=== PATIENT | male | born 1955 | race Hispanic/Latino ===

== ENCOUNTER 2018-11-11 12:04 | Inpatient (IN) | payer MEDICARE, OTHER ==
[~2018-11-11] VITALS: Ht 177.8 cm; Wt 138.3 kg
--- OUTSIDE RECORDS SUMMARY | 2018-11-11 12:06 | XMS REPORT | Clinical Summary ---
Author Author JANIE [facility] Address Unknown Phone Unavailable Care Team Providers Care Sawmill Production Worker Name Role Phone Nancy Nj Peggy PCP Allergies Comments Active Allergy Reactions Severity Noted Date "cant sleep Codeine Rash Low 11/10/2014 "cant sleep" Hydrocodone-Acetaminophen Itching, Rash Low 10/30/2014 Medications End Date Status Medication Sig Dispensed Refills Start Date Active potassium chloride SA Take 20 mEq 0 (K-DUR,KLOR-CON) 10 MEQ by mouth tablet daily . Active furosemide (LASIX) 40 MG Take 40 mg by 0 tablet mouth daily . Active enalapril (VASOTEC) 20 MG Take 20 mg by 0 tablet mouth 2 (two) times daily . Active levothyroxine (SYNTHROID, Take 100 mcg 0 LEVOTHROID) 100 MCG by mouth tablet Every morning on an empty stomach. Active ATORVASTATIN CALCIUM Take 20 mg by 0 (ATORVASTATIN ORAL) mouth . Active aspirin 81 MG EC tablet Take 81 mg by 0 mouth daily Will stop per MD instructions for surgery. Active amLODIPine (NORVASC) 10 Take 10 mg by 0 MG tablet mouth daily. Active penicillin v potassium Take 250 mg 0 (VEETID) 250 MG tablet by mouth 2 (two) times daily. Active apixaban (ELIQUIS) 5 mg Take 5 mg by 0 Tab tablet mouth 2 (two) times daily Pt to stop per MD instructions for surgery . Active Problems Problem Noted Date Varicose vein of leg 02/23/2017 Encounter for imaging of bilateral greater saphenous veins 01/24/2017 Primary localized osteoarthrosis, lower leg 10/30/2014 Degenerative arthritis of knee 10/30/2014 Social History Date Tobacco Use Types Packs/Day Years Used Current Every Day Smoker 0.5 20 Smokeless Tobacco: Never Used Tobacco Cessation: Ready to Quit: Yes; Counseling Given: Yes Alcohol Use Drinks/Week oz/Week Comments Yes occasional Sex Assigned at Date Recorded Not on file Industry Job Start Date Occupation Not on file Not on file Not on file Travel End Travel History Travel Start No recent travel history available. Last Filed Vital Signs Not on file Plan of Treatment Not on file Implants Device Identifier Shelf Expiration Date Model / Serial / Lot Implanted Type Area Manufactur er 06/08/2016 [id number] / / [id number] Cement,Bone Cement Hv 40gm - Cement/John Right: Knee BIOMET/O.E [id number] ler/Adhesi .C. Implanted: Qty: 2 on 10/30/2014 by Gamaliel Sandoval MD 08/09/2019 [id number] / / [id number] Patella,3-Peg Arcom Thin Series A Joints Right: Knee BIOMET INC 37x8.5mm - [id number] Implanted: Qty: 1 on 10/30/2014 by Gamaliel Pryor MD 03/09/2024 [id number] / / [id number] Tibial Plate,Interlok Fixed Joints Right: Knee BIOMET/O.E Cruciate W/Locking Bar 83mm - .C. [id number] Implanted: Qty: 1 on 10/30/2014 by Gamaliel Pryor MD 08/09/2018 [id number] / / [id number] Vanguard Tibial Bearing Right: Knee BIOMET Implanted: Qty: 1 on 10/30/2014 by Gamaliel Pryor MD 09/09/2024 [id number] / / [id number] Vanguard Knee System Cr Femoral Right: Knee BIOMET -Right Implanted: Qty: 1 on 10/30/2014 by Gamaliel Pryor MD Results Not on fileafter 11/10/2017 Insurance Payer Benefit Subscriber ID Type Phone Address Plan / Group [facility] xxxxxxxxxxxx HMO/POS [phone] [facility] CHOICE EXCHANGE Advance Directives For more information, please contact: [facility] [address] [place] [address] Date Inactivated Comments Code Status Date Activated 02/23/2017 12:22 PM Full Code 02/23/2017 7:52 AM This code status was determined by: Patient 01/24/2017 5:06 PM Full Code 01/24/2017 11:32 AM This code status was determined by: Patient 11/02/2014 12:22 PM Full Code 10/30/2014 9:02 AM This code status was determined by: Patient
--- OUTSIDE RECORDS SUMMARY | 2018-11-11 12:06 | XMS REPORT ---
Author Author [facility] Address Unknown Phone Unavailable Care Team Providers Care Dynamic Balancer Name Role Phone ADELITA STEEL Unavailable Unavailable Problems This patient has no known problems. Allergies, Adverse Reactions, Alerts This patient has no known allergies or adverse reactions. Medications This patient has no known medications. Results Test Description Test Time Test Comments Text Results Atomic Results Result Comments ELECTROLYTES 2017-02-09 15:11:00 SODIUM (BEAKER) (test xyag=281) 141 meq/L 136-145 POTASSIUM (BEAKER) (test qndt=144) 4.2 meq/L 3.5-5.1 CHLORIDE (BEAKER) (test srxf=559) 107 meq/L 98-107 CO2 (BEAKER) (test iewm=973) 23 meq/L 22-29 BUN AND [id number] 15:11:00* Test Item Value Reference Range Comments BLOOD UREA NITROGEN (BEAKER) (test tnft=710) 15 mg/dL 7-21 CREATININE (BEAKER) (test vddu=761) 0.90 mg/dL 0.57-1.25 EGFR (BEAKER) (test hzxf=2271) 86 mL/min/1.73 sq m ESTIMATED GFR IS NOT ACCURATE CREATININE CLEARANCE IN PREDICTING GLOMERULAR FILTRATION RATE. ESTIMATED GFR IS NOT APPLICABLE FOR DIALYSIS PATIENTS. [id number] 15:06:00* Test Item Value Reference Range Comments HEMOGLOBIN (BEAKER) (test djwr=461) 15.4 GM/DL 13.7-17.5 [id number] 16:59:00* Test Item Value Reference Range Comments HEMOGLOBIN (BEAKER) (test frme=313) 16.3 GM/DL 13.0-16.8 [id number] 16:54:00* Test Item Value Reference Range Comments SODIUM (BEAKER) (test fnkz=039) 141 meq/L 136-145 POTASSIUM (BEAKER) (test yhyd=801) 4.5 meq/L 3.5-5.1 Specimen slightly hemolyzed CHLORIDE (BEAKER) (test jhqs=676) 107 meq/L 98-107 CO2 (BEAKER) (test ildp=796) 27 meq/L 22-29 [id number] 16:54:00* Test Item Value Reference Range Comments GLUCOSE RANDOM (BEAKER) (test sxab=807) 102 mg/dL 70-105 Effective 05/27/2014: Reference Range Change-Adult onlyNew: 70-105 Previous: 70-110BUN AND [id number] 16:54:00* Test Item Value Reference Range Comments BLOOD UREA NITROGEN (BEAKER) (test bsow=819) 21 mg/dL 7-21 CREATININE (BEAKER) (test yayr=503) 1.02 mg/dL 0.57-1.25 Specimen slightly hemolyzed EGFR (BEAKER) (test ptjj=7779) 74 mL/min/1.73 sq m ESTIMATED GFR IS NOT ACCURATE CREATININE CLEARANCE IN PREDICTING GLOMERULAR FILTRATION RATE. ESTIMATED GFR IS NOT APPLICABLE FOR DIALYSIS PATIENTS.
--- OUTSIDE RECORDS SUMMARY | 2018-11-11 12:06 | XMS REPORT ---
Author Author Gloria Truong [facility] eClinicalWorks Address Unknown Phone Unavailable Care Team Providers Care Retail Marketing Coordinator Name Role Phone Glorai Truong Unavailable Allergies, Adverse Reactions, Alerts Substance Reaction Event Type Codeine Sulfate Info Not Available Drug Allergy Problems Problem Type Condition Code Onset Dates Condition Status Assessment Venous stasis of both lower extremities I87.8 Active Assessment Venous stasis ulcer of right lower extremity I83.019 Active Assessment Venous stasis dermatitis of both lower extremities I87.2 Active Assessment Morbid (severe) obesity due to excess calories E66.01 Active Assessment Onychomycosis B35.1 Active Problem Venous stasis ulcer of right lower extremity I83.019 Active Problem Morbid (severe) obesity due to excess calories E66.01 Active Problem Venous stasis dermatitis of both lower extremities I87.2 Active Problem Cellulitis of right lower extremity L03.115 Active Problem Onychomycosis B35.1 Active Problem Obesity, unspecified obesity severity, unspecified obesity type E66.9 Active Problem Erysipelas of lower extremity A46 Active Medications Medication Code System Code Instructions Start Date End Date Status Dosage PredniSONE [facility] [place] [address]-89 2.5 MG Orally Once a day Active 1 tablet Bactrim DS [facility] [place] [address]-22 800-160 MG Orally Twice a day Active 1 tablet Eliquis [facility] [place] [address]-62 2.5 MG Orally Active not defined Amlodipine Besylate [facility] [place] [address]-11 10 MG Orally Once a day Active 1 tablet Monopril NDC 0 Active not defined Furosemide [facility] [place] [address]-78 40 MG Orally Once a day Active 1 tablet potassium NDC 0 Oral Active 1 tab Fenofibrate [facility] [place] [address]-76 48 MG Orally Once a day Active 1 tablet Augmentin [facility] [place] [address]-01 875-125 MG Orally every 12 hrs Active 1 tablet Enalapril Maleate [facility] [place] [address]-57 20 MG Orally Once a day Active 1 tablet Aspir-81 [facility] [place] [address]-36 81 MG Orally Once a day Active 1 tablet Vital Signs Date/Time: Apr 25, 2017 BMI 40.89 Index Weight 285 lbs Height 70 in Temperature 98.0 F Cardiac Monitoring Heart Rate 61 /min Blood Pressure Diastolic 56 mm Hg Blood Pressure Systolic 111 mm Hg Results No Known Results Summary Purpose eClinicalWorks Submission
--- OUTSIDE RECORDS SUMMARY | 2018-11-11 12:06 | XMS REPORT | Continuity of Care Document ---
Author Author [facility] Address Unknown Phone Unavailable Problems Problem Status Onset Date Classification Date Reported Comments Source Venous stasis of both lower extremities Active Diagnosis 04/26/2017 [id number] Venous stasis ulcer of right lower extremity Active Diagnosis 04/26/2017 2.16840.1.728398.4.391.11.83036 Venous stasis dermatitis of both lower extremities Active Diagnosis 04/26/2017 2.16840.1.768164.4.391.11.88663 Morbid obesity due to excess calories Active Diagnosis 04/26/2017 2.16840.1.890381.4.391.11.52607 Onychomycosis Active Diagnosis 04/26/2017 2.16840.1.178051.4.391.11.49861 Cellulitis of right lower extremity Active Problem 04/26/2017 2.16840.1.840586.4.391.11.76681 Obesity, unspecified obesity severity, unspecified obesity type Active Problem 04/26/2017 2.16840.1.518425.4.391.11.42860 Erysipelas of lower extremity Active Problem 04/26/2017 2.16840.1.154373.4.391.11.79052 Medications Medication Details Route Status Patient Instructions Ordering Provider Order Date Source PredniSONE 1 tablet Orally Active 2.5 MG Orally Once a day [place] 2.840.1.766538.4.391.11.86178 Bactrim DS 1 tablet Orally Active 800-160 MG Orally Twice a day [place] 2.840.1.726695.4.391.11.55727 Eliquis not defined Orally Active 2.5 MG Orally [place] 2.840.1.314729.4.391.11.45244 Amlodipine Besylate 1 tablet Orally Active 10 MG Orally Once a day [place] 2.16.840.1.388993.4.391.. Monopril not defined NA Active [place] 2.16.840.1.481971.4.391.11.99455 Furosemide 1 tablet Orally Active 40 MG Orally Once a day [place] 2.16.840.1.158658.4.391.. potassium 1 tab Oral Active Oral [place] 2.16.840.1.010140.4.391.11.28568 Fenofibrate 1 tablet Orally Active 48 MG Orally Once a day [place] 2.16.840.1.447662.4.391.. Augmentin 1 tablet Orally Active 875-125 MG Orally every 12 hrs [place] 2.16.840.1.116231.4.391. Enalapril Maleate 1 tablet Orally Active 20 MG Orally Once a day [place] 2.16.840.1.021824.4.391.. Aspir-81 1 tablet Orally Active 81 MG Orally Once a day [place] 2.16.840.1.559472.4.391.. Allergies, Adverse Reactions, Alerts Substance Category Reaction Severity Reaction type Status Date Reported Comments Source Codeine Sulfate Adverse Reaction Info Not Available Adverse Reaction Active 04/25/2017 2.16.840.1.249600.4.391.. Immunizations Immunization Date Given Site Status Last Updated Comments Source Results Order Name Results Value Reference Range Date Interpretation Comments Source Vital Signs Vital Sign Value Date Comments Source Weight 285 04/25/2017 2.16.840.1.277046.4.391.68 Height 70 04/25/2017 2.16.840.1.214175.4.391. Temperature Oral (F) 98.0 F 04/25/2017 2.16.840.1.146205.4.391..11430 Heart Rate 61 04/25/2017 2.16.840.1.683554.4.391.11.56283 Diastolic (mm Hg) 56 04/25/2017 2.16.840.1.312138.4.391.11.57819 Systolic (mm Hg) 111 04/25/2017 2.16.840.1.158833.4.391.11.48799 Encounters Location Location Details Encounter Type Encounter Number Reason For Visit Attending Provider ADM Date DC Date Status Source Procedures Procedure Code Date Perfomer Comments Source
[2018-11-11] MEDS ORDERED: SODIUM CHLORIDE 0.9% 1000ML 1,000 ML IV STA (12:10)
[2018-11-11] MEDS ORDERED: MORPHINE SULFATE INJ 4 MG/ML INJ 1ML IV NR (12:10)
[2018-11-11] MEDS ORDERED: ONDANSETRON HCL INJ 2MG/ML 2ML 2 MG/ML VIAL IV NR (12:10)
--- NOTE | 2018-11-11 12:13 | NUR ---
CALLED AND NOTIFIED TIA OF [facility] SHE WILL CALL TECH
[2018-11-11] MEDS ORDERED: VANCOMYCIN 1GM/NS 250 ML 250 ML IV SCH ×2 (12:15→21:00)
[2018-11-11] MEDS ORDERED: ONDANSETRON HCL INJ 2MG/ML 2ML 2 MG/ML VIAL IV PRN ×2 (12:30→19:00)
[2018-11-11] MEDS: PIPER-TAZ 3.375 GM 50 ML IV SCH ×2 (12:30→17:53)
[2018-11-11 12:39] LABS: BASOPHILS # (AUTO) 0.1 (0.0-0.1); BASOPHILS % 0.5 % (0.0-1.0); EOSINOPHILS # (AUTO) 0.1 (0.0-0.4); EOSINOPHILS % 0.5 % (0.0-6.0); HEMATOCRIT 41.9 % (38.2-49.6); LYMPHOCYTES # (AUTO) 1.1 (1.0-3.2); LYMPHOCYTES % 10.5 % (18.0-39.1); MEAN CORPUSCULAR HEMOGLOBIN 31.8 pg (28-32); MEAN CORPUSCULAR HGB CONC 35.8 g/dL (31-35); MONOCYTES # (AUTO) 1.3 (0.2-0.8); NEUTROPHILS # (AUTO) 8.2 (2.1-6.9); PLATELET COUNT 170 x10e3/uL (140-360); RED BLOOD COUNT 4.71 x10e6/uL (4.3-5.7); RED CELL DISTRIBUTION WIDTH 12.8 % (11.7-14.4)
[2018-11-11] MEDS ORDERED: MORPHINE SULFATE INJ 4 MG/ML INJ 1ML IV PRN (12:45)
[2018-11-11 12:49] LABS: INR 1.16; PROTHROMBIN TIME 15.4 seconds (11.9-14.5)
[2018-11-11 12:50] LABS: PARTIAL THROMBOPLASTIN TIME 35.9 seconds (23.8-35.5)
--- OUTSIDE RECORDS SUMMARY | 2018-11-11 12:57 | XMS REPORT | Clinical Summary ---
Author Author JANIE [facility] Address Unknown Phone Unavailable Care Team Providers Care Chief Pilot Name Role Phone Nancy Nj Peggy PCP [...] Lot Implanted Type Area Manufactur er 06/08/2016 [id number] / / [id number] Cement,Bone Maud Hv 40gm - Cement/John Right: Knee BIOMET/O.E [id number] ler/Adhesi .C. Implanted: Qty: 2 on 10/30/2014 by Gamaliel Sandoval MD 08/09/2019 [id number] / / [id number] Patella,3-Peg Arcom Thin Series A Joints Right: Knee BIOMET INC 37x8.5mm - [id number] Implanted: Qty: 1 on 10/30/2014 by Gamaliel Pryor MD 03/09/2024 [id number] / / [id number] Tibial Plate,Interlok Fixed Joints Right: Knee BIOMET/O.E Cruciate W/Locking Bar 83mm - .C. [id number] Implanted: Qty: 1 on 10/30/2014 by Gamaliel Pryor MD 08/09/2018 [id number] / [id number] Vanguard Tibial Bearing Right: Knee BIOMET Implanted: Qty: 1 on 10/30/2014 by Gamaliel Pryor MD 09/09/2024 [id number] / / [id number] Vanguard Knee System Cr Femoral Right: Knee BIOMET -Right Implanted: Qty: 1 on 10/30/2014 by Gamaliel Pryor MD Results Not on fileafter 11/10/2017 Insurance Payer Benefit Subscriber ID Type Phone Address Plan / Group [facility] xxxxxxxxxxxx HMO/POS [phone] [facility] CHOICE EXCHANGE Advance Directives For more information, please contact: [facility] [address] [place] [address] Date Inactivated Comments Code Status Date Activated 02/23/2017 12:22 PM Full Code 02/23/2017 7:52 AM This code status was determined by: Patient 01/24/2017 5:06 PM Full Code 01/24/2017 11:32 AM This code status was determined by: Patient 11/02/2014 12:22 PM Full Code 10/30/2014 9:02 AM This code status was determined by: Patient
[2018-11-11 12:59] LABS: ALANINE AMINOTRANSFERASE 21 IU/L (0-55); ALBUMIN 3.7 g/dL (3.5-5.0); ALBUMIN/GLOBULIN RATIO 1.1 (0.8-2.0); ALKALINE PHOSPHATASE 69 IU/L (40-150); ANION GAP 11.7 mmol/L (8-16); BLOOD UREA NITROGEN 13 mg/dL (7-26); BUN/CREATININE RATIO 14 (6-25); CALCIUM 9.2 mg/dL (8.4-10.2); CARBON DIOXIDE 24 mmol/L (22-29); CHLORIDE 105 mmol/L (98-107); CREATINE KINASE 241 IU/L (30-200); CREATININE, SERUM 0.96 mg/dL (0.72-1.25); EST GLOMERULAR FILTRATION RATE > 60 ML/MIN (60-); GLUCOSE 99 mg/dL (74-118); POTASSIUM 3.7 mmol/L (3.5-5.1); SODIUM 137 mmol/L (136-145)
[2018-11-11] MEDS: SODIUM CHLORIDE 0.9% 1000ML 1,000 ML IV SCH ×2 (12:59→21:16)
[2018-11-11 13:34] LABS: B-TYPE NATRIURETIC PEPTIDE2 155.6 pg/mL (0-100)
--- NOTE | 2018-11-11 13:40 | NUR ---
PT RECEIVED FROM ER. [facility]. BED AT LOWEST POSITION. CALL LIGHT WITH IN REACH. PT DENIES NEEDS AT THIS TIME.
[2018-11-11 13:49] VITALS: BP 129/70
[2018-11-11 14:39] VITALS: BP 129/70
[2018-11-11] MEDS ORDERED: FUROSEMIDE40 MG PO (16:26)
[2018-11-11] MEDS ORDERED: AMLODIPINE BESY10 MG PO (16:26)
[2018-11-11] MEDS ORDERED: ASPIRIN81 MG PO (16:26)
[2018-11-11] MEDS ORDERED: ATORVASTATIN CA20 MG PO (16:26)
[2018-11-11] MEDS ORDERED: POTASSIUM CHLO20 ME1 (16:26)
[2018-11-11] MEDS ORDERED: ENALAPRIL MALEA20 MG PO (16:26)
[2018-11-11] MEDS ORDERED: ELIQUIS PO (16:30)
[2018-11-11 18:21] VITALS: BP 132/80
[2018-11-11] MEDS ORDERED: HYDRALAZINE HCL 20 MG/ML VIAL IV PRN (19:00)
[2018-11-11] MEDS ORDERED: HYDROCODONE/APAP 5MG-325MG TAB PO PRN (19:00)
[2018-11-11] MEDS ORDERED: ACETAMINOPHEN 325 MG TAB PO PRN (19:00)
--- NOTE | 2018-11-11 19:00 | NUR ---
BEDSIDE SHIFT REPORT GIVEN TO SENIOR COUNSEL COMMERCIAL RN
[2018-11-11 19:59] VITALS: BP 162/72
[2018-11-11 20:00] VITALS: BP 162/72
[2018-11-12] VITALS (8 sets, daily range): BP systolic 120–155; BP diastolic 67–74
[2018-11-12] MEDS: PIPER-TAZ 3.375 GM 50 ML IV SCH ×4 (00:27→18:00)
[2018-11-12] MEDS ORDERED: VANCOMYCIN 1GM/NS 250 ML 250 ML IV SCH (01:00)
[2018-11-12 05:30] LABS: BASOPHILS % 0.6 % (0.0-1.0); EOSINOPHILS # (AUTO) 0.1 (0.0-0.4); EOSINOPHILS % 1.4 % (0.0-6.0); HEMATOCRIT 38.4 % (38.2-49.6); LYMPHOCYTES # (AUTO) 1.7 (1.0-3.2); LYMPHOCYTES % 26.5 % (18.0-39.1); MEAN CORPUSCULAR HEMOGLOBIN 31.3 pg (28-32); MEAN CORPUSCULAR HGB CONC 33.9 g/dL (31-35); MEAN CORPUSCULAR VOLUME 92.3 fL (81-99); NEUTROPHILS # (AUTO) 3.5 (2.1-6.9); NEUTROPHILS % 55.3 % (38.7-80.0); PLATELET COUNT 146 x10e3/uL (140-360); RED BLOOD COUNT 4.16 x10e6/uL (4.3-5.7); RED CELL DISTRIBUTION WIDTH 13.1 % (11.7-14.4)
[2018-11-12 05:55] LABS: ALANINE AMINOTRANSFERASE 17 IU/L (0-55); ALBUMIN 2.9 g/dL (3.5-5.0); ALKALINE PHOSPHATASE 60 IU/L (40-150); ANION GAP 8.4 mmol/L (8-16); BLOOD UREA NITROGEN 10 mg/dL (7-26); BUN/CREATININE RATIO 12 (6-25); CALCIUM 8.6 mg/dL (8.4-10.2); CARBON DIOXIDE 24 mmol/L (22-29); CHLORIDE 108 mmol/L (98-107); CREATININE, SERUM 0.86 mg/dL (0.72-1.25); EST GLOMERULAR FILTRATION RATE > 60 ML/MIN (60-); GLUCOSE 137 mg/dL (74-118); POTASSIUM 3.4 mmol/L (3.5-5.1); SODIUM 137 mmol/L (136-145)
[2018-11-12] MEDS: SODIUM CHLORIDE 0.9% 1000ML 1,000 ML IV SCH ×2 (08:24→16:45)
[2018-11-12] MEDS: FAMOTIDINE 20 MG TAB PO SCH ×2 (08:47→16:46)
[2018-11-12] MEDS: VANCOMYCIN 1GM/NS 250 ML 250 ML IV SCH (12:36)
[2018-11-12] MEDS ORDERED: ONDANSETRON HCL 4 MG ORAL DISINTEGRATING TAB PO PRN (15:45)
[2018-11-12] MEDS ORDERED: POTASSIUM CHLORIDE 20 MEQ TAB CR PO ONE (18:15)
[2018-11-12] MEDS: HYDRALAZINE HCL 20 MG/ML VIAL IV PRN (18:31)
--- NOTE | 2018-11-12 19:15 | NUR ---
Patient received sitting up in bed. AAO x 3. Family at bedside. No c/o pain. No signs of respiratory distress. IVF infusing at 100cc/hr. Bed locked and in lowest position. Call light within reach. Patient instructed to call for assistance when needed. Call light within reach.
--- NOTE | 2018-11-12 20:02 | NUR ---
Patient off floor for chest X-Ray via W/C.
--- NOTE | 2018-11-12 20:20 | NUR ---
Patient back to floor from Chest X-Ray. Patient in stable condition.
--- NOTE | 2018-11-12 20:34 | Diagnostic Imaging Report ---
EXAMINATION: PA and lateral views of the chest. COMPARISON: None CLINICAL HISTORY: 63-year-old male with wheezing DISCUSSION: Lines/tubes: None. Lungs: Slightly increased interstitial markings bilaterally. Mild pulmonary vascular congestion. Pleura: There is no pleural effusion or pneumothorax. Heart and mediastinum: Enlarged cardiomediastinal silhouette the left cardiac apex is likely obscured due to mediastinal fat. Pulmonary vasculature is normal. Bones and soft tissues: No acute bony abnormalities. Degenerative changes in the thoracic spine IMPRESSION: 1. Slightly increased interstitial markings could represent viral infection. 2. Mildly enlarged cardiomediastinal silhouette with central pulmonary vascular congestion. Signed by: Deloris Singleton MD on 11/12/2018 8:31 PM
[2018-11-12] MEDS: OYST-CAL-D 500MG TABLET PO SCH ×2 (21:00→21:39)
[2018-11-12] MEDS ORDERED: ENALAPRIL MALEATE 10 MG TAB PO SCH (21:00)
[2018-11-12] MEDS: ATORVASTATIN 20 MG TAB PO SCH (21:39)
[2018-11-12] MEDS: APIXABAN 5 MG TABLET PO SCH (21:50)
[2018-11-12] MEDS: ENALAPRIL MALEATE 10 MG TAB PO SCH (22:00)
[2018-11-13] VITALS (9 sets, daily range): BP systolic 148–177; BP diastolic 68–89
--- NOTE | 2018-11-13 00:35 | NUR ---
Blood specimen sent to lab for analysis of Vancomycin trough level.
[2018-11-13] MEDS: VANCOMYCIN 1GM/NS 250 ML 250 ML IV SCH ×2 (01:30→12:07)
[2018-11-13] MEDS: SODIUM CHLORIDE 0.9% 1000ML 1,000 ML IV SCH ×2 (04:24→11:23)
[2018-11-13 05:26] LABS: BASOPHILS # (AUTO) 0.1 (0.0-0.1); BASOPHILS % 0.9 % (0.0-1.0); EOSINOPHILS # (AUTO) 0.1 (0.0-0.4); EOSINOPHILS % 1.7 % (0.0-6.0); HEMATOCRIT 38.7 % (38.2-49.6); LYMPHOCYTES # (AUTO) 1.7 (1.0-3.2); LYMPHOCYTES % 23.9 % (18.0-39.1); MEAN CORPUSCULAR HGB CONC 33.6 g/dL (31-35); MEAN CORPUSCULAR VOLUME 92.1 fL (81-99); MONOCYTES # (AUTO) 0.8 (0.2-0.8); MONOCYTES % 11.4 % (4.4-11.3); NEUTROPHILS # (AUTO) 4.4 (2.1-6.9); NEUTROPHILS % 61.8 % (38.7-80.0); PLATELET COUNT 148 x10e3/uL (140-360)
[2018-11-13 05:56] LABS: ANION GAP 9.9 mmol/L (8-16); BLOOD UREA NITROGEN 12 mg/dL (7-26); BUN/CREATININE RATIO 14 (6-25); CALCIUM 8.9 mg/dL (8.4-10.2); CARBON DIOXIDE 23 mmol/L (22-29); CHLORIDE 109 mmol/L (98-107); CHOL/HDL RATIO 2.8 (3.9-4.7); CHOLESTEROL 108 MD/DL (0-199); CREATININE, SERUM 0.86 mg/dL (0.72-1.25); EST GLOMERULAR FILTRATION RATE > 60 ML/MIN (60-); GLUCOSE 99 mg/dL (74-118); HDL CHOLESTEROL 39 MG/DL (40-60); LDL CHOLESTEROL 56 MG/DL (60-130); PHOSPHORUS 2.9 MG/DL (2.3-4.7); POTASSIUM 3.9 mmol/L (3.5-5.1); SODIUM 138 mmol/L (136-145); TRIGLYCERIDES 67 MG/DL (0-149)
[2018-11-13] MEDS: PIPER-TAZ 3.375 GM 50 ML IV SCH ×4 (06:19→17:01)
[2018-11-13] MEDS: HYDRALAZINE HCL 20 MG/ML VIAL IV PRN (06:29)
[2018-11-13] MEDS ORDERED: FAMOTIDINE 20 MG TAB PO SCH (07:30)
[2018-11-13] MEDS: APIXABAN 5 MG TABLET PO SCH ×2 (08:30→16:59)
[2018-11-13] MEDS: ASPIRIN 81 MG CHEW TAB PO SCH (08:30)
[2018-11-13] MEDS: FAMOTIDINE 20 MG TAB PO SCH ×2 (08:30→16:57)
[2018-11-13] MEDS: ENALAPRIL MALEATE 10 MG TAB PO SCH ×2 (08:31→21:00)
[2018-11-13] MEDS: OYST-CAL-D 500MG TABLET PO SCH ×3 (08:31→21:00)
[2018-11-13] MEDS: ZINC SULFATE 220 MG CAP PO SCH ×2 (08:31→16:59)
[2018-11-13] MEDS: ASCORBIC ACID 500 MG TAB PO SCH ×2 (08:31→16:59)
[2018-11-13] MEDS: MAGNESIUM OXIDE 400 MG TAB PO SCH ×2 (08:31→16:59)
[2018-11-13] MEDS: MULTIVITAMINS/MINERALS TAB PO SCH (08:33)
[2018-11-13] MEDS ORDERED: NON-FORMULARY MEDICATION ([Eliquis] 5 MG) PO SCH (09:00)
[2018-11-13] MEDS ORDERED: AMLODIPINE BESYLATE 10 MG TAB PO SCH (09:00)
[2018-11-13] MEDS ORDERED: ENALAPRIL MALEATE PO SCH (09:00)
[2018-11-13] MEDS ORDERED: APIXABAN 5 MG TABLET PO SCH (09:00)
[2018-11-13] MEDS ORDERED: ENALAPRIL MALEATE 10 MG TAB PO SCH (09:00)
[2018-11-13] MEDS: ATORVASTATIN 20 MG TAB PO SCH (21:00)
[2018-11-14] VITALS: BP 150/76
[2018-11-14] MEDS: VANCOMYCIN 1GM/NS 250 ML 250 ML IV SCH ×2 (00:58→13:00)
[2018-11-14 04:00] VITALS: BP 152/65
[2018-11-14 05:50] LABS: BASOPHILS % 0.5 % (0.0-1.0); EOSINOPHILS # (AUTO) 0.1 (0.0-0.4); EOSINOPHILS % 0.8 % (0.0-6.0); HEMATOCRIT 39.2 % (38.2-49.6); HEMOGLOBIN 13.8 g/dL (14.0-18.0); LYMPHOCYTES # (AUTO) 1.4 (1.0-3.2); LYMPHOCYTES % 17.5 % (18.0-39.1); MEAN CORPUSCULAR HEMOGLOBIN 31.4 pg (28-32); MEAN CORPUSCULAR HGB CONC 35.2 g/dL (31-35); MEAN CORPUSCULAR VOLUME 89.3 fL (81-99); MONOCYTES # (AUTO) 0.6 (0.2-0.8); MONOCYTES % 8.3 % (4.4-11.3); NEUTROPHILS # (AUTO) 5.6 (2.1-6.9); NEUTROPHILS % 72.5 % (38.7-80.0); PLATELET COUNT 181 x10e3/uL (140-360); RED BLOOD COUNT 4.39 x10e6/uL (4.3-5.7); RED CELL DISTRIBUTION WIDTH 12.9 % (11.7-14.4)
[2018-11-14 05:58] LABS: ANION GAP 13.7 mmol/L (8-16); BLOOD UREA NITROGEN 12 mg/dL (7-26); BUN/CREATININE RATIO 13 (6-25); CALCIUM 9.5 mg/dL (8.4-10.2); CARBON DIOXIDE 20 mmol/L (22-29); CHLORIDE 110 mmol/L (98-107); CREATININE, SERUM 0.92 mg/dL (0.72-1.25); EST GLOMERULAR FILTRATION RATE > 60 ML/MIN (60-); GLUCOSE 161 mg/dL (74-118); POTASSIUM 3.7 mmol/L (3.5-5.1); SODIUM 140 mmol/L (136-145)
[2018-11-14] MEDS: PIPER-TAZ 3.375 GM 50 ML IV SCH ×3 (06:38→12:00)
--- NOTE | 2018-11-14 07:10 | NUR ---
Rcd pt at bed pt is alert and oriented pt resting on bed no signs of any distress noted iv patent bed low and locked call light in reach
[2018-11-14] MEDS: FAMOTIDINE 20 MG TAB PO SCH ×2 (07:30→16:17)
[2018-11-14] MEDS: ASCORBIC ACID 500 MG TAB PO SCH ×2 (09:00→16:17)
[2018-11-14] MEDS: MULTIVITAMINS/MINERALS TAB PO SCH (09:00)
[2018-11-14] MEDS: OYST-CAL-D 500MG TABLET PO SCH ×2 (09:00→15:00)
[2018-11-14] MEDS ORDERED: NIFEDIPINE CR 30 MG TAB PO SCH (09:00)
[2018-11-14] MEDS: MAGNESIUM OXIDE 400 MG TAB PO SCH ×2 (09:00→16:17)
[2018-11-14] MEDS: ZINC SULFATE 220 MG CAP PO SCH ×2 (09:00→16:17)
[2018-11-14] MEDS: APIXABAN 5 MG TABLET PO SCH ×2 (09:00→16:17)
[2018-11-14] MEDS: ENALAPRIL MALEATE 10 MG TAB PO SCH (09:00)
[2018-11-14] MEDS: ASPIRIN 81 MG CHEW TAB PO SCH (09:00)
[2018-11-14 09:41] VITALS: BP 153/73
[2018-11-14 10:00] VITALS: BP 153/73
[2018-11-14 12:46] VITALS: BP 144/77
[2018-11-14] MEDS ORDERED: CIPRO500 MG PO (14:28)
[2018-11-14] MEDS ORDERED: ZINC SULFATE220 M1 PO (14:28)
[2018-11-14] MEDS ORDERED: MAGNESIUM OXID400 MG PO (14:28)
[2018-11-14] MEDS ORDERED: ASCORBIC ACID500 MG PO (14:28)
[2018-11-14] MEDS ORDERED: VASOTEC10 MG PO (14:28)
[2018-11-14] MEDS ORDERED: Calcium Carbonate PO (14:28)
[2018-11-14] MEDS ORDERED: Multivitamins/Minerals PO (14:28)
[2018-11-14] MEDS ORDERED: BACTRIM DS TAB1 EACH PO (14:28)
[2018-11-14] MEDS ORDERED: NIFEDIPINE ER30 M1 PO (14:28)
[2018-11-14 15:00] VITALS: BP 154/92
--- NOTE | 2018-11-14 18:05 | NUR ---
PT WENT HOME IN SAFE CONDITION WITH HIS
--- NOTE | 2018-11-15 08:17 | Discharge Summary ---
HISTORY OF PRESENT ILLNESS: Mr. Buckley is a pleasant 63-year-old male, who experienced redness at the right leg on Monday with associated burning and pain. On Monday, he had chills and pain 9 on a 0/10 scale. On Monday, the pain was 8/10, and on Monday and Monday, the pain was 4/10. Approximately a month ago, he was at [facility] for about a week with right lower extremity cellulitis and was given prescription on discharge for doxycycline 100 mg p.o. b.i.d. He took the doxycycline for about 3 days, then went to his PCP with worsening signs and symptoms and was prescribed cephalexin for 10 days. He was not improving, thus went to an Urgent Care Center and was told to come to the emergency department. On admission, a line of demarcation was drawn on the right leg and the patient was placed on vancomycin and Zosyn, IV antibiotics. PAST MEDICAL HISTORY: Significant for right lower extremity cellulitis with 1 year of antibiotics, obstructive sleep apnea, morbid obesity, hypertension, hyperlipidemia, and chronic atrial fibrillation. PAST SURGICAL HISTORY: Both knees have been replaced. FAMILY HISTORY: Father has low back pain and hypertension. Mother had low back pain. SOCIAL HISTORY: Smoked three-quarters of pack per day for 44 years. Denied alcohol or illicit drugs. ALLERGIES: CODEINE. ADMITTING DIAGNOSES: 1. Right lower extremity cellulitis, failed outpatient treatment with oral antibiotics, doxycycline and cephalexin. 2. Right lower extremity pain. 3. Hypertension. 4. Chronic atrial fibrillation. 5. Morbid obesity with BMI of 43. 6. Acute hypokalemia. 7. Acute hyperglycemia. 8. Obstructive sleep apnea. 9. Acute hypoalbuminemia. 10. Active smoker. DISCHARGE DIAGNOSES: 1. Right lower extremity cellulitis, failed outpatient treatment with oral antibiotics, doxycycline and cephalexin. 2. Right lower extremity pain. 3. Hypertension. 4. Chronic atrial fibrillation. 5. Morbid obesity with BMI of 43. 6. Acute hypokalemia. 7. Acute hyperglycemia. 8. Obstructive sleep apnea. 9. Acute hypoalbuminemia. 10. Active smoker. LABORATORY DATA: The patient's white blood cell count on admission is 10.74, which has improved to 7.75 and potassium 3.4, which is now 3.7. Renal labs; BUN 10, creatinine 0.86, GFR greater than 60. Today, BUN 12 and creatinine 0.92. On November 11, 2018, lactic acid 12.4, total protein 5.8, and albumin 2.9. Preliminary venous doppler ultrasound was negative for DVT in the right lower extremity. No growth from blood cultures. PHYSICAL EXAMINATION: Vital signs were stable with systolic blood pressure had been elevated. Today, temperature 97.5, heart 56, blood pressure 153/73, respirations 20, and oxygen saturation 98%. Today, the patient denies any chills. The neck pain that he was experiencing has improved. Had mild pain in the right medial ankle, but no other complaints. There were no consultations during this hospitalization. Vancomycin trough level is 6.5. Pain was controlled during this stay. Eliquis was continued for chronic atrial fibrillation. Hemoglobin A7c was 5.7%. Case was discussed with Dr. See at length. Overall, the patient is improving. We will need to follow up with his PCP, Dr. Yepez in 1 to 2 weeks. DISCHARGE MEDICATIONS: We will discharge on vitamin C 500 mg p.o. b.i.d., Os-Toni with vitamin D 500 mg p.o. b.i.d., calcium carbonate 500 mg p.o. t.i.d., Vasotec 20 mg p.o. q.12 hours, magnesium oxide 400 mg p.o. b.i.d., multivitamin daily, nifedipine 30 mg daily, Cipro 500 mg p.o. q.12 hours, Bactrim 1 tablet p.o. b.i.d., antibiotics will be for 10 days, and zinc sulfate 220 mg p.o. b.i.d. Continue with cardiac diet. Dictated by Keith Drake, GERMAINE MD WERO BowmanP/MODL /[id number]
== END 2018-11-14 18:07 | disposition home or self-care (01) | DRG 603 ==
LOC: ER 12:04 → ERHOLD 12:53 → MED/SURG2 14:13
PROVIDERS: ADMIT Internal Medicine; ATTEND Internal Medicine
DX: L03.115 Cellulitis of right lower limb (principal); Z68.41 Body mass index [BMI] 40.0-44.9, adult; I48.2 Chronic atrial fibrillation; Z79.01 Long term (current) use of anticoagulants; I10 Essential (primary) hypertension; E88.09 Other disorders of plasma-protein metabolism, not elsewhere classified; F17.210 Nicotine dependence, cigarettes, uncomplicated; G47.33 Obstructive sleep apnea (adult) (pediatric); R73.9 Hyperglycemia, unspecified; E87.6 Hypokalemia; E78.5 Hyperlipidemia, unspecified; E66.01 Morbid (severe) obesity due to excess calories
CPT/HCPCS: 36415; 71046; 80048; 80053; 80061; 80202; 82550; 82553; 83036; 83605; 83735; 83880; 84100; 84484; 85025; 85610; 85730; 87040; 93971; 99284; J0360; J2543; J3370; J7030

== ENCOUNTER 2019-10-27 13:37 | Inpatient (IN) | payer MEDICARE ==
[~2019-10-27] VITALS: Ht 177.8 cm; Wt 130.2 kg
[~2019-10-27 13:37] MED LIST: AMLODIPINE BESY10 MG PO; ASCORBIC ACID500 MG PO; ASPIRIN81 MG PO; ATORVASTATIN CA20 MG PO; BACTRIM DS TAB1 EACH PO; CIPRO500 MG PO; Calcium Carbonate PO; ELIQUIS PO; ENALAPRIL MALEA20 MG PO; FUROSEMIDE40 MG PO; MAGNESIUM OXID400 MG PO; Multivitamins/Minerals PO; NIFEDIPINE ER30 M1 PO; POTASSIUM CHLO20 ME1; VASOTEC10 MG PO; ZINC SULFATE220 M1 PO
[2019-10-27] MEDS ORDERED: SODIUM CHLORIDE 0.9% 1000ML 1,000 ML IV STA (13:39)
--- OUTSIDE RECORDS SUMMARY | 2019-10-27 13:41 | XMS REPORT | Encounter Summary ---
Author Organization Unknown Address [address] [place] [id number] Phone [phone] Care Team Providers Care Dance Teacher Name Role Phone Dr. Elsie Phan 3 [phone] Nicolas Tran MD 82 [phone] Reason for Visit sinus symptoms; Left shoulder pain Instructions 1. Shoulder joint pain XR, shoulder, 2 or more view - *Please call the patient and schedule* orthopedic referral - *Please call the patient and make an appointment* Tylenol Arthritis Pain 650 mg tablet,extended release diclofenac 1 % topical gel 2. Congestive heart failure 3. Peripheral vascular disease 4. Morbid obesity learning about healthy weight 5. Influenza vaccination declined 6. Immunization Prevnar 13 (PF) 0.5 mL intramuscular syringe 7. Screening for malignant neoplasm of colon fecal occult blood, stool colon cancer screening, stool 8. Prediabetes 9. Benign essential hypertension 10. Hyperlipidemia colesterol alto: instrucciones de cuidado - [high cholesterol: care instructions] Discussion Note: None recorded. Plan of Care Reminders Provider Appointments None recorded. Lab Fecal Occult Blood, Stool 04/08/2019 [facility] Colon Cancer Screening, Stool 04/08/2019 [facility] (Cologuard Orders Only) Referral Orthopedic Referral 04/08/2019 Rubin White MD Procedures None recorded. Surgeries None recorded. Imaging XR, Shoulder, 2 or More View 04/08/2019 [facility] Medications Name Start Date amlodipine 10 mg tablet Take 1 tablet every day by oral route. Asprin Ec Low Dose 81 mg tablet,delayed release Take 1 tablet every day by oral route. atorvastatin 20 mg tablet Take 1 tablet every day by oral route. diclofenac 1 % topical gel APPLY 2 GRAMS TO THE AFFECTED AREA(S) BY TOPICAL ROUTE 4 TIMES PER DAY Eliquis 5 mg tablet Take 1 tablet twice a day by oral route. enalapril maleate 20 mg tablet Take 1 tablet twice a day by oral route. furosemide 40 mg tablet Take 1 tablet every day by oral route. gabapentin 100 mg capsule Take 1 capsule every day by oral route for 30 days. Macrobid 100 mg capsule Take 1 capsule every 12 hours by oral route for 7 days. With Food. potassium chloride 20mg once a day tramadol 50 mg tablet Take 1 tablet every 8 hours by oral route as needed for 30 days. Tylenol Arthritis Pain 650 mg tablet,extended release Take 2 tablets every 8 hours by oral route as needed for 30 days. Medications Administered None recorded. Vitals Height Weight BMI Blood Pressure 5 ft 10 in 283 lbs 40.6 kg/m2 124/74 mm[Hg] Results Lab Results Date Name Specimen Result Interpretation Description Value Range Status Address 05/02/2019 Ankle Brachial Index Result: Moderate Stenosis [facility]: [address] [address], [place] 04/30/2019 HbA1C (Hemoglobin a1C), Blood High A1C W/eag 6.0 % 1.0-5.7 % Final [facility]: [address] [place] [address] Average Blood Glucose 126 mg/dL Final [facility]: [address] [place] [address] 04/30/2019 Hepatitis C Virus RNA, Quant, PCR, Serum or Plasma Normal Hepatitis C Antibody non-reactive non-reactive Final [facility]: [address] [place] [address] Normal Signal to Cut-off 0.06 <1.00 Final [facility]: [address] [place] [address] 04/30/2019 CBC W/ Auto Diff High Wbc 10.42 x10*3/L 4.23-9.07 x10*3/L Final [facility]: [address] [place] [address] Rbc 4.98 10*12/L 4.63-6.08 10*12/L Final [facility]: [address] Hemoglobin 15.80 g/dL 13.70-17.50 g/dL Final [facility]: [address] Hematocrit 46.1 % 40.1-51.0 % Final [facility]: [address] [place] [address] Mcv 92.6 fL 80.0-100.0 fL Final [facility]: [address] [place] [address] Mch 31.7 pg 25.7-32.2 pg Final [facility]: [address] [place] Mchc 34.3 g/dL 32.3-36.5 g/dL Final [facility]: [address] [place] RDW-SD 43.4 fL 35.1-43.9 fL Final [facility]: [address] [place] Platelet Count 204.0 k/uL 163.0-337.0 k/uL Final [facility]: [address] [facility] Mpv 11.7 fL 7.5-11.5 fL Final [facility]: [address] [place] High Neut% 68.6 % 34.0-67.9 % Final [facility]: [address] [place] Low Lymph% 17.8 % 21.8-53.1 % Final [facility]: [address] [place] High Mon% 12.8 % 5.3-12.2 % Final [facility]: [address] [place] Low Eos% 0.5 % 0.8-7.0 % Final [facility]: [address] [place] Baso% 0.3 % 0.2-1.2 % Final [facility]: [address] [facility] Neut# 7.2 x10*3/L 1.8-5.4 x10*3/L Final [facility]: [address] [place] Lymph# 1.9 x10*3/L 1.3-3.6 x10*3/L Final [facility]: [address] [place] High Mon# 1.3 x10*3/L 0.3-0.8 x10*3/L Final [facility]: [address] [place] Eos# 0.05 x10*3/L 0.04-0.54 x10*3/L Final [facility]: [address] [place] Baso# 0.03 x10*3/L 0.01-0.08 x10*3/L Final [facility]: [address] [place] 04/30/2019 CMP, Serum or Plasma Alt 29 U/L 0-55 U/L Final [facility] [address] [facility] Ast 29 U/L 5-34 U/L Final [facility]: [address] [facility] Bun 19.1 mg/dL 8.4-25.0 mg/dL Final [facility]: [address] [place] [address] Alk Phos 85 unit/L 40-150 unit/L Final [facility]: [address] [facility] High Glucose 100 mg/dL 70-99 mg/dL Final [facility]: [address] [facility] Albumin 3.8 g/dL 3.4-5.1 g/dL Final [facility]: [address] [place] [address] Creatinine 1.00 mg/dL 0.72-1.25 mg/dL Final [facility]: [address] eGFR Non- >60 mL/min/1.73m2 Final [facility]: [address] [place] [address] Total Bilirubin 1.0 mg/dL 0.2-1.2 mg/dL Final [facility]: [address] eGFR - >60 mL/min/1.73m2 Final [facility]: [address] [facility] Sodium 139 mEq/L 135-145 mEq/L Final [facility]: [address] Potassium 4.1 mEq/L 3.5-5.1 mEq/L Final [facility]: [address] Chloride 107 mmol/L 98-110 mmol/L Final [facility]: [address] [facility] Total Protein 7.5 g/dL 6.1-8.2 g/dL Final [facility]: [address] [facility] Calcium 9.1 mg/dL 9.0-10.2 mg/dL Final [facility]: [address] [place] [address] Co2 28.1 mmol/L 20.0-32.0 mmol/L Final [facility]: [address] [address], [place] Anion Gap 4 calc Final [facility]: [address] [address], [place] 04/30/2019 Lipid Panel, Serum Low Hdl 36 mg/dL Final [facility]: [address] [address], [place] Triglyceride 80 mg/dL 0-150 mg/dL Final [facility]: [address] VLDL (Calculated) 16 mg/dL Final [facility]: [address] cholesterol/HDL Ratio 3.6 mg/dL Final [facility]: [address] non-HDL Cholesterol (Calculated) 92 mg/dL 0-160 mg/dL Final [facility]: [address] Cholesterol 128 mg/dL 0-200 mg/dL Final [facility]: [address] LDL (Calculated) 76 mg/dL 0-130 mg/dL Final [facility]: [address] [address], [place] 04/30/2019 TSH, Serum or Plasma Tsh 0.860 uIU/mL 0.350-4.940 uIU/mL Final [facility]: [address] 04/30/2019 PSA, Serum or Plasma PSA, Total 1.10 NG/mL <4.00 NG/mL Final [facility]: [address] 04/30/2019 Uric Acid, Serum or Plasma Uric Acid 6.2 mg/dL 3.5-7.2 mg/dL Final [facility]: [address] [address], [place] 04/30/2019 Culture, Urine ABNORMAL Culture, Urine, Routine see note Final [facility]: [address] [address], [place] 04/30/2019 Fecal Occult Blood, Stool ABNORMAL Fecal Globin (Medicare) by Immunochemistry detected Final [facility]: [address] [address], [place] 04/30/2019 Electrocardiogram Rate & Rhythm irregluarly irregular [facility]: [address], [place] Qrs [facility]: [address] [place] Interval [facility]: [address] [place] QRS Duration [facility]: [address] [place] QT Interval [facility] [address] [facility] [address] [place] Visual Acuity R Eye Uncorrected 20/20 [facility]: [address] [place] L Eye Uncorrected 20/20 [facility]: [address] [facility], [place] Urinalysis, Dipstick Color Color yellow [facility]: [address] [place] Color Appearance clear [facility]: [address] [place] Color Glucose negative [facility]: [address] [place] Color Bilirubin negative [facility]: [address] [place] Color Ketones negative [facility]: [address] [place] Color Specific Hewitt 1.020 [facility]: [address] [place] Color Blood moderate [facility]: [address] [place] Color PH 5.5 [facility]: [address] [place] Color Protein negative [facility]: [address] [place] Color Urobilinogen 0.2 [facility]: [address] [place] Color Nitrites negative [facility]: [address] [place] Color Leukocytes small [facility]: [address] [place] Allergies Code Code System Name Reaction Severity Status Onset 2670 RxNorm Codeine Itching Active Problems Name Status Onset Date Source Obstructive Sleep Apnea of Adult Active 04/30/2019 Benign Hypertensive Heart Disease without Congestive Heart Failure Active 04/30/2019 Chronic Atrial Fibrillation Active 04/30/2019 Sick Sinus Syndrome Active 04/30/2019 Impaired Glucose Tolerance Active 05/01/2019 Hyperlipidemia Active 05/07/2019 Benign Essential Hypertension Active 05/07/2019 Congestive Heart Failure Active 05/07/2019 Peripheral Vascular Disease Active 05/07/2019 Procedures Date Name Performed by 04/09/2014 Knee Replacement Information not available 11/07/2013 Knee Replacement Information not available 04/08/2019 XR, Shoulder, 2 or More View [facility] [address] [place] [address] (Work Place) Vaccine List Vaccine Type pneumococcal conjugate PCV 13 04/08/20190.5 mL Social History Tobacco Smoking Status Former Smoker (1/2 PPD) Past Encounters 05/02/2019 Benign Hypertensive Heart Disease without Congestive Heart Failure; Low Back Pain; Impaired Glucose Tolerance; Varicose Veins of Lower Extremity; Stasis Dermatitis and Venous Ulcer of Lower Extremity Due to Chronic Peripheral Venous Hypertension; Peripheral Vascular Disease; Screening for Cardiovascular System Disease Xavier Arias Jr, MD: [address] [facility], [place] [address], Ph. 04/30/2019 Adult Health Examination; Advance Directive Discussed with Patient; Depression Screening; Abdominal Aortic Aneurysm Screening; Screening for Malignant Neoplasm of Prostate; Screening for Malignant Neoplasm of Colon; Alcohol Consumption Screening; Influenza Vaccination Declined; Benign Hypertensive Heart Disease without Congestive Heart Failure; Chronic Atrial Fibrillation; Hyperlipidemia; Exposure to Hepatitis C Virus; Gout; Obstructive Sleep Apnea of Adult; Body Mass Index 40+ - Severely Obese; Morbid Obesity; Blood in Urine; Idiopathic Peripheral Neuropathy; Full Thickness Rotator Cuff Tear; Arthritis of Acromioclavicular Joint; Localized, Primary Osteoarthritis of the Shoulder Region; Ventricular Premature Complex; Electrocardiogram Abnormal; Impaired Fasting Glycaemia Xavier Arias Jr, MD: [address] [facility], [place] [address], Ph. 04/08/2019 Shoulder Joint Pain; Congestive Heart Failure; Peripheral Vascular Disease; Morbid Obesity; Influenza Vaccination Declined; Immunization; Screening for Malignant Neoplasm of Colon; Prediabetes; Benign Essential Hypertension; Hyperlipidemia Elsie Phan MD: [address] [place] [phone], Ph. History of Present Illness Shoulder pain Reported By: Patient HPI: Hand Dominance: right. Location: left, posterior, superficial. Quality: superficial, constant, improving. Severity: moderate, pain level 5/10, worst pain 9/10. Duration: 3 days. Timing: acute, abrupt, nighttime. Context: cannot identify, overuse, atraumatic. Alleviating Factors: rest, OTC medication; topical Icy Hot cream. Aggravating Factors: ROM. Associated Symptoms: no weakness, no numbness, no tingling, no swelling, no redness, no warmth, no radiation down arm, no fever, no chills, ecchymosis. Previous Surgery: none. Prior Imaging: none. Previous Injections: none. Previous PT: none. Work Related: no. Working: regular duty Note:64yo male presents to become established in our office. New to [facility]. Pt only speaks Mohawk - visit translated by DF. Pt previously was seen by Dr Yepez. 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 Previously followed by rolled glass crosscutter at , Dr Ramsey. Next visit with Dr Tran at end of Apr. Blood sugar was elevated per DR Tran.</div><div>Bilateral knee replacements in 2013.</div><div>Hyperlipidemia -on atorvastatin 20mg qhs.< /div><div>PVD/PAD - Had prior vein specialist, Dr Lee about 2016.</div> Review of Systems:ROS as noted in the HPI Review of Systems Comprehensive General Adult ROS Reported By: Patient Constitutional: Constitutional: no fever Eyes: Eyes: no vision change Cardiovascular: Cardiovascular: no chest pain Respiratory: Respiratory: no cough, no wheezing, no shortness of breath Gastrointestinal: Gastrointestinal: no abdominal pain Musculoskeletal: Musculoskeletal: arthralgias/joint pain Neurologic: Neurologic: no loss of consciousness, no headaches Psychiatric: Psych: no depression, no alcohol abuse, no anxiety, no suicidal thoughts Physical Exam General Adult Exam (male), Musculoskeletal and Joint Exam Reported By: Patient Constitutional: General Appearance: healthy-appearing, well-nourished, well-developed. Level of Distress: NAD. Ambulation: ambulating normally Psychiatric: Mental Status: active and alert, normal mood, normal affect Eyes: Lids and Conjunctivae: non-injected. Pupils: PERRLA. EOM: EOMI. Sclerae: non-icteric ENMT: Hearing: no hearing loss. Oropharynx: moist mucous membranes Lungs: Respiratory effort: no dyspnea. Auscultation: breath sounds normal, good air movement, CTA except as noted, no wheezing, no rales/crackles, no rhonchi Cardiovascular: Heart Auscultation: RRR, normal S1, normal S2, no murmurs, no rubs, no gallops. Neck vessels: no carotid bruits Abdomen: Bowel Sounds: normal. Inspection and Palpation: soft Musculoskeletal:: Joints, Bones, and Muscles: no bony abnormalities, limited ROM, tenderness. Extremities: no cyanosis, no edema. Right Hip: no tenderness. Left Hip: no tenderness. Lumbar / Lumbosacral Spine normal lordosis, tenderness on palpation, spasms. Soft Tissue/Bursa: tender point none Neurologic: Gait and Station: normal gait Skin: Inspection and palpation: no rash
--- OUTSIDE RECORDS SUMMARY | 2019-10-27 13:41 | XMS REPORT | Summary of Care ---
Author Author Jaci Ulloa M.A. Unknown Address Unknown Phone Unavailable Care Team Providers Care Shredding Floor Equipment Operator Name Role Phone RISHABH Fox, SHERWIN Unavailable Unavailable LEVY Castano, JANUSZ Unavailable Unavailable JI LUTZ MD Unavailable Unavailable JACQUES COKER NE, TORSTEN SANTIAGO Unavailable Unavailable RISHABH HAY NE, SHERWIN Unavailable Unavailable NATHAN COKER NE, CAT Flores Unavailable Unavailable Unavailable Unavailable Functional Status Name Dates Details Functional status health issues are not documented Status: Name Dates Details Cognitive status health issues are not documented Status: Problems Name Dates Details ASVD (arteriosclerotic vascular disease) (440.9, I70.90) Status: Active Chronic stasis dermatitis (454.1, I87.2) Status: Active Cellulitis (682.9, L03.90) Status: Active COPD, moderate (496, J44.9) Status: Active HTN (hypertension) (401.9, I10) Status: Active Diabetes mellitus (250.00, E11.9) Status: Active High cholesterol (272.0, E78.00) Status: Active Hypokalemia (276.8, E87.6) Status: Active Low blood potassium (276.8, E87.6) Status: Active Left shoulder pain (719.41, M25.512) Status: Active Traumatic complete tear of left rotator cuff, initial encounter (840.4, S46.012A) Status: Active Medications Name Dates Details amLODIPine Besylate 10 MG Oral Tablet TAKE 1 TABLET BY MOUTH EVERY DAYNEEDS OFFICE VISIT Quantity: 30 JANUSZ LOCKETT M.D. * Start : 12-Apr-2017 Active Aspirin 325 MG Oral Tablet Delayed Release TAKE 2 TABLETS EVERY 4 HOURS NEEDED. * Quantity: 360 Refills: 0 LEVY Castano, JANUSZ * Start : 09-Sep-2016 Active Eliquis 5 MG Oral Tablet Take 1 pill daily * Quantity: 30 Refills: 5 LEVY Castano, JANUSZ * Start : 09-Sep-2016 Active Enalapril Maleate 20 MG Oral Tablet Take 1 pill BID daily * Quantity: 60 Refills: 5 LEVY Devries., JANUSZ * Start : 09-Sep-2016 Active Fenofibrate 48 MG Oral Tablet TAKE 1 TABLET DAILY. * Quantity: 30 Refills: 5 LEVY Devries., JANUSZ * Start : 09-Sep-2016 Active Furosemide 40 MG Oral Tablet Take 1 pill daily * Quantity: 30 Refills: 5 LEVY Castano, JANUSZ * Start : 09-Sep-2016 Active Metoprolol Tartrate 25 MG Oral Tablet TAKE 1 TABLET DAILY. * Quantity: 30 Refills: 5 LEVY Devries., JANUSZ * Start : 09-Sep-2016 Active Potassium Chloride Anh ER 20 MEQ Oral Tablet Extended Release Take 1 tablet by mouth daily Supervising MD: Rishabh Ramirez * Quantity: 90 Refills: 1 LEVY Castano, JANUSZ * Start : 09-Sep-2016 Active traMADol HCl - 50 MG Oral Tablet TAKE 1 TO 2 TABLETS EVERY 6 HOURS NEEDED FOR PAIN. * Quantity: 40 Refills: 0 SHERWIN LLANOS * Start : 05-Aug-2019 Active Allergies and Adverse Reactions Name Dates Details Codeine Derivatives (Allergy) Status: Active cyclobenzaprine (Allergy) Status: Active HYDROcodone-Acetaminophen TABS (Allergy) Status: Active OxyCONTIN T12A (Allergy) Status: Active Past Medical History Name Dates Details History of cardiac disorder (V12.50, Z86.79) Status: Resolved History of hypertension (V12.59, Z86.79) Status: Resolved Procedures Procedure Dates Details Post Op Promis 29 Survey Date: 08-Aug-2019 [U] XRAY SHOULDER MIN 2 VWS LEFT [id number] Date: 30-Aug-2019 History of Knee Surgery Left Completed History of Knee Surgery Right Completed Immunization Name Dates Details Immunizations not documented Family History Name Dates Details Family history of hypertension (V17.49, Z82.49) Status: Active Name Dates Details Family history of hypertension (V17.49, Z82.49) Status: Active Name Dates Details Family history of hypertension (V17.49, Z82.49) Status: Active Social History Name Dates Details - Status: Name Dates Details Smokes tobacco daily (finding) Vital Signs Date Test Result Details No Known Vitals to report Results Date Description Value Details [id number] [U] XRAY SHOULDER MIN 2 VWS LEFT [id number] XR SHOULDER MIN 2 VWS LEFT Images acquired, not reported on this accession number. Plan of Care Name Dates Details Planned Observations Planned Goals not documented Planned Encounters Appointment; SHERWIN TREVIZO P.A. On: 02-Sep-2019 9:15 Interventions Provided Labs/Procedures/Imaging* [U] XRAY SHOULDER MIN 2 VWS LEFT [id number]; To Be Done: 02 Sep 2019 Instructions Name Dates Details Instructions not documented Encounters Appointment; CAT EVANS M.D. Encounter Diagnosis: Problem not documented On: 25-Apr-2019 9:00 Appointment; TORSTEN HANNA M.D. Encounter Diagnosis: Problem not documented On: 03-Jun-2019 10:00 Appointment; TORSTEN HANNA M.D. Encounter Diagnosis: Problem not documented On: 30-Jul-2019 8:30 Appointment; SHERWIN TREVIZO P.A. Encounter Diagnosis: Problem not documented On: 05-Aug-2019 9:30 Appointment; SHERWIN TREVIZO P.A. Encounter Diagnosis: Problem not documented On: 02-Sep-2019 9:15
--- OUTSIDE RECORDS SUMMARY | 2019-10-27 13:41 | XMS REPORT ---
Author Author [facility] Address Unknown Phone Unavailable Care Team Providers Care Emergency Medicine Physician Assistant Name Role Phone Sallie CRESPO III PP MARYANN BEDOLLA Unavailable Unavailable ADELITA STEEL Unavailable Unavailable Payers Payer Name Policy Type Policy Number Effective Date Expiration Date [facility] [id number] Problems Condition Name Condition Details Condition Category Status Onset Date Resolution Date Last Treatment Date Treating Clinician Comments Cellulitis Cellulitis Problem Active Allergies, Adverse Reactions, Alerts Allergy Name Allergy Type Status Severity Reaction(s) Onset Date Inactive Date Treating Clinician Comments Codeine Allergy to Substance Active Mild RASH 2018-11-11 00:00:00 Medications Ordered Medication Name Filled Medication Name Start Date Stop Date Current Medication? Ordering Clinician Indication Dosage Frequency Signature (SIG) Comments Components Ascorbic Acid 500 Mg Tablet Ascorbic Acid 500 Mg Tablet 2018-11-14 00:00:00 Yes Laurie Drake [employer] 500 Twice A Day Calcium Carbonate 500 Mg Tab Calcium Carbonate 500 Mg Tab 2018-11-14 00:00:00 Yes Laurie Drake [employer] 500 Three Times A Day Ciprofloxacin Hcl (Cipro) 500 Mg Tablet Ciprofloxacin Hcl (Cipro) 500 Mg Tablet 2018-11-14 00:00:00 Yes Laurie Housee [employer] 500 Every 12 Hours Enalapril Maleate (Vasotec) 10 Mg Tab Enalapril Maleate (Vasotec) 10 Mg Tab 2018-11-14 00:00:00 Yes Laurie Drake [employer] 20 Every 12 Hours Magnesium Oxide 400 Mg Tablet Magnesium Oxide 400 Mg Tablet 2018-11-14 00:00:00 Yes Laurie Brando Vidal [employer] 400 Twice A Day Multivitamins/Minerals Tab Multivitamins/Minerals Tab 2018-11-14 00:00:00 Yes Laurie Brando Drake [employer] 1 Daily Nifedipine (Nifedipine Er) 30 Mg Tab.er.24 Nifedipine (Nifedipine Er) 30 Mg Tab.er.24 2018-11-14 00:00:00 Yes Laurie Brando Drake [employer] 30 Daily Sulfamethoxazole/Trimethoprim (Bactrim Ds Tablet) 1 Each Tablet Sulfamethoxazole/Trimethoprim (Bactrim Ds Tablet) 1 Each Tablet 2018-11-14 00:00:00 Yes Laurie Brando Drake [employer] 1 Twice A Day Zinc Sulfate 220 Mg Capsule Zinc Sulfate 220 Mg Capsule 2018-11-14 00:00:00 Yes Laurie Drake [employer] 220 Twice A Day Amlodipine Besylate 10 Mg Tablet Amlodipine Besylate 10 Mg Tablet Yes 10 Daily Aspirin 81 Mg Tab.chew Aspirin 81 Mg Tab.chew Yes 1 Daily Atorvastatin Calcium 20 Mg Tablet Atorvastatin Calcium 20 Mg Tablet Yes 20 Bedtime Eliquis Eliquis Yes 5 Twice A Day Furosemide 40 Mg Tablet Furosemide 40 Mg Tablet Yes 40 Daily Potassium Chloride 20 Meq Tab.er.prt Potassium Chloride 20 Meq Tab.er.prt Yes 1 Daily Enalapril Maleate 20 Mg Tablet, 2 Tab Oral Enalapril Maleate 20 Mg Tablet, 2 Tab Oral 2018-11-14 00:00:00 No 2 Daily Procedures and Interventions Procedure Date / Time Performed Performing Clinician X-ray of chest, two views 2018-11-12 00:00:00 LAURIE DRAKE Encounters Start Date/Time End Date/Time Encounter Type Admission Type Attending Clinicians Care Facility Care Department Encounter ID 2019-07-30 06:52:00 Inpatient [facility] [id number] 2018-11-11 12:53:00 2018-11-14 18:07:00 Discharged Inpatient 1 MARYANN BEDOLLA [facility] [id number] Results Test Description Test Time Test Comments Text Results Atomic Results Result Comments Vancomycin Level Trough 2018-11-14 13:21:00 Vancomycin Level Trough (test vnwx=4645-0) 7.0 5.0-10.0 Blood Qucirfz6222-04-86 12:33:00* Test Item Value Reference Range Comments Blood Culture (test rtct=07312857) NO GROWTH AFTER 72 HOURS Sodium Hhvqp5656-97-62 06:00:00* Test Item Value Reference Range Comments Sodium Level (test sgxv=8169-9) 140 136-145 Potassium Iqkfo1716-47-88 06:00:00* Test Item Value Reference Range Comments Potassium Level (test prqv=7077-0) 3.7 3.5-5.1 Chloride Phndr3323-30-70 06:00:00* Test Item Value Reference Range Comments Chloride Level (test mkjl=7421-3) 110 98-107 Carbon Dioxide Xtvyz1817-80-49 06:00:00* Test Item Value Reference Range Comments Carbon Dioxide Level (test xdtt=3167-0) 20 22-29 Anion Xwr7311-16-71 06:00:00* Test Item Value Reference Range Comments Anion Gap (test ncuu=18471-2) 13.7 8-16 Blood Urea Tisfmzym9857-34-38 06:00:00* Test Item Value Reference Range Comments Blood Urea Nitrogen (test rilr=2937-7) 12 7-26 Rsycwttpkh6065-79-18 06:00:00* Test Item Value Reference Range Comments Creatinine (test ijno=1231-8) 0.92 0.72-1.25 BUN/Creatinine Pozar5780-24-23 06:00:00* Test Item Value Reference Range Comments BUN/Creatinine Ratio (test zsci=3229-4) 13 6-25 Estimat Glomerular Filtration Ngsu1114-19-28 06:00:00* Test Item Value Reference Range Comments Estimat Glomerular Filtration Rate (test fhjq=828499593) > 60 >60 Ranges were taken from the National Kidney Disease Education Program and the [facility] literature.Reference ranges:60 or greater: Ikbynl60-72 ( for 3 consecutive months): Chronic kidney disease 15 or less: Kidney failure Glucose Bfdla5221-19-14 06:00:00* Test Item Value Reference Range Comments Glucose Level (test egxm=GKO3272) 161 74-118 Calcium Qrcmn7083-21-42 06:00:00* Test Item Value Reference Range Comments Calcium Level (test glfa=59957-2) 9.5 8.4-10.2 White Blood Sjxyl5225-10-89 05:56:00* Test Item Value Reference Range Comments White Blood Count (test besk=9844-2) 7.75 4.8-10.8 Red Blood Dkgkb4806-16-40 05:56:00* Test Item Value Reference Range Comments Red Blood Count (test zddg=510-8) 4.39 4.3-5.7 Ydhzlyahwk6294-97-10 05:56:00* Test Item Value Reference Range Comments Hemoglobin (test vtiv=48809-7) 13.8 14.0-18.0 Ognhfpocjm5252-81-13 05:56:00* Test Item Value Reference Range Comments Hematocrit (test rfue=4550-4) 39.2 38.2-49.6 Mean Corpuscular Ygyuxz2969-26-98 05:56:00* Test Item Value Reference Range Comments Mean Corpuscular Volume (test apqh=902-8) 89.3 81-99 Mean Corpuscular Jmuuljgpeo8240-25-04 05:56:00* Test Item Value Reference Range Comments Mean Corpuscular Hemoglobin (test sbjo=219-6) 31.4 28-32 Mean Corpuscular Hemoglobin Fhwydlh3520-24-79 05:56:00* Test Item Value Reference Range Comments Mean Corpuscular Hemoglobin Concent (test unkj=680-6) 35.2 31-35 Red Cell Distribution Tzdhe8133-73-71 05:56:00* Test Item Value Reference Range Comments Red Cell Distribution Width (test nbri=40972-0) 12.9 11.7-14.4 Platelet Yhmci6972-68-97 05:56:00* Test Item Value Reference Range Comments Platelet Count (test zfki=569-0) 181 140-360 Neutrophils (%) (Auto)2018-11-14 05:56:00* Test Item Value Reference Range Comments Neutrophils (%) (Auto) (test gfyv=27472-9) 72.5 38.7-80.0 Lymphocytes (%) (Auto)2018-11-14 05:56:00* Test Item Value Reference Range Comments Lymphocytes (%) (Auto) (test jgiu=411-7) 17.5 18.0-39.1 Monocytes (%) (Auto)2018-11-14 05:56:00* Test Item Value Reference Range Comments Monocytes (%) (Auto) (test saef=6330-2) 8.3 4.4-11.3 Eosinophils (%) (Auto)2018-11-14 05:56:00* Test Item Value Reference Range Comments Eosinophils (%) (Auto) (test cnea=260-8) 0.8 0.0-6.0 Basophils (%) (Auto)2018-11-14 05:56:00* Test Item Value Reference Range Comments Basophils (%) (Auto) (test trlq=193-9) 0.5 0.0-1.0 IM GRANULOCYTES %2018-11-14 05:56:00* Test Item Value Reference Range Comments IM GRANULOCYTES % (test code=IM GRANULOCYTES %) 0.4 0.0-1.0 Neutrophils # (Auto)2018-11-14 05:56:00* Test Item Value Reference Range Comments Neutrophils # (Auto) (test piyx=500-9) 5.6 2.1-6.9 Lymphocytes # (Auto)2018-11-14 05:56:00* Test Item Value Reference Range Comments Lymphocytes # (Auto) (test idqq=29342-1) 1.4 1.0-3.2 Monocytes # (Auto)2018-11-14 05:56:00* Test Item Value Reference Range Comments Monocytes # (Auto) (test leet=265-7) 0.6 0.2-0.8 Eosinophils # (Auto)2018-11-14 05:56:00* Test Item Value Reference Range Comments Eosinophils # (Auto) (test tsmx=058-9) 0.1 0.0-0.4 Basophils # (Auto)2018-11-14 05:56:00* Test Item Value Reference Range Comments Basophils # (Auto) (test iyik=024-2) 0.0 0.0-0.1 Absolute Immature Granulocyte (mhfb6310-00-62 05:56:00* Test Item Value Reference Range Comments Absolute Immature Granulocyte (auto (test code=Absolute Immature Granulocyte (auto) 0.03 0-0.1 Hemoglobin A1c Slgnoxa3361-16-22 05:58:00* Test Item Value Reference Range Comments Hemoglobin A1c Percent (test code=Hemoglobin A1c Percent) 5.7 4.0-7.0 Phosphorus Jgjfx7075-97-66 05:56:00* Test Item Value Reference Range Comments Phosphorus Level (test rxls=QXA3599) 2.9 2.3-4.7 Magnesium Kufeh2415-49-69 05:56:00* Test Item Value Reference Range Comments Magnesium Level (test hyon=72019-5) 2.0 1.3-2.1 Triglycerides Lspld3697-42-83 05:56:00* Test Item Value Reference Range Comments Triglycerides Level (test qxxm=0353-7) 67 0-149 Cholesterol Ueghh7623-90-61 05:56:00* Test Item Value Reference Range Comments Cholesterol Level (test szxf=2845-6) 108 0-199 Less than 200 mg/dL Low Xyns470 - 239 mg/dL Borderline Armr000 m g/dl and greater High Risk LDL Frnpzrimxzx0344-86-06 05:56:00* Test Item Value Reference Range Comments LDL Cholesterol (test zuga=6015-7) 56 60-130 HDL Scrazmsdlpj8301-45-50 05:56:00* Test Item Value Reference Range Comments HDL Cholesterol (test hfxo=0974-0) 39 40-60 Cholesterol/HDL Yimpp7699-72-00 05:56:00* Test Item Value Reference Range Comments Cholesterol/HDL Ratio (test ljyk=8692-5) 2.8 3.9-4.7 CHEST 2 FLMLY0100-76-94 20:27:00 [place] [address] Patient Name: JEEVAN GREENWOOD MR #: [id number] : 1955 Age/Sex: 63/M Req #: [id number] Adm Physician: MARYANN BEDOLLA MD Ordered by: LAUREI DRAKE REFINERY OPERATOR [employer] Report #: [id number] Location: MED/SURG2 Room/Bed: [facility] Procedure: [id number] DX/ CHEST 2 VIEWS Exam Date: 11/12/18 Exam Time: 2004 REPORT STATUS: Signed EXAMINATI ON: PA and lateral views of the chest. COMPARISON: None CLINICAL HISTO RY: 63-year-old male with wheezing DISCUSSION: Lines/tubes: Non e. Lungs: Slightly increased interstitial markings bilaterally. Mild pulmon taina vascular congestion. Pleura: There is no pleural effusion or pneumot horax. Heart and mediastinum: Enlarged cardiomediastinal silhouette the l eft cardiac apex is likely obscured due to mediastinal fat. Pulmonary vasculat ure is normal. Bones and soft tissues: No acute bony abnormalities. Deg enerative changes in the thoracic spine IMPRESSION: 1. Slightly incre ased interstitial markings could represent viral infection. 2. Mildly enla rged cardiomediastinal silhouette with central pulmonary vascular congestion. Signed by: Deloris Singleton MD on 11/12/2018 8:31 PM Dicta yovana By: DELORIS SINGLETON MD 30 COPY TO: LAURIE DRAKE REFINERY OPERATOR [employer] Total Uqollploo2794-11-34 05:55:00* Test Item Value Reference Range Comments Total Bilirubin (test pcyw=3125-4) 1.1 0.2-1.2 Aspartate Amino Transf (AST/SGOT)2018-11-12 05:55:00* Test Item Value Reference Range Comments Aspartate Amino Transf (AST/SGOT) (test code=Aspartate Amino Transf (AST/SGOT)) 17 5-34 Alanine Aminotransferase (ALT/SGPT)2018-11-12 05:55:00* Test Item Value Reference Range Comments Alanine Aminotransferase (ALT/SGPT) (test cxfw=1237-7) 17 0-55 Total Mxwyqrm6702-57-97 05:55:00* Test Item Value Reference Range Comments Total Protein (test bmfo=7033-6) 5.8 6.5-8.1 Tnodznd7280-88-81 05:55:00* Test Item Value Reference Range Comments Albumin (test zplt=3640-5) 2.9 3.5-5.0 Pwzcwgip0388-58-00 05:55:00* Test Item Value Reference Range Comments Globulin (test waki=81822-1) 2.9 2.3-3.5 Albumin/Globulin Jomlg4451-40-00 05:55:00* Test Item Value Reference Range Comments Albumin/Globulin Ratio (test letr=9746-9) 1.0 0.8-2.0 Alkaline Eonlkjtwekc6567-92-07 05:55:00* Test Item Value Reference Range Comments Alkaline Phosphatase (test zlhc=9257-3) 60 40-150 B-Type Natriuretic Vmjaqbt5087-24-13 13:35:00* Test Item Value Reference Range Comments B-Type Natriuretic Peptide (test lxlr=95441-9) 155.6 0-100 Lactic Acid Mioqr0814-17-60 13:27:00* Test Item Value Reference Range Comments Lactic Acid Level (test code=Lactic Acid Level) 12.4 4.5-19.8 Creatine Eqrvjv4792-36-83 13:27:00* Test Item Value Reference Range Comments Creatine Kinase (test dmpu=8577-7) 241 30-200 Creatine Kinase XG3139-40-27 13:27:00* Test Item Value Reference Range Comments Creatine Kinase MB (test linh=55713-7) 2.60 0-5.0 Troponin H1124-02-15 13:27:00* Test Item Value Reference Range Comments Troponin I (test tvns=WFT9085) 0.055 0-0.300 Activated Partial Thromboplast Lmzo3899-51-25 13:22:00* Test Item Value Reference Range Comments Activated Partial Thromboplast Time (test negi=16461-3) 35.9 23.8-35.5 Prothrombin Sbvw3587-19-43 12:50:00* Test Item Value Reference Range Comments Prothrombin Time (test jjea=8813-7) 15.4 11.9-14.5 Prothromb Time International Fndwt4307-48-11 12:50:00* Test Item Value Reference Range Comments Prothromb Time International Ratio (test mczp=4371-1) 1.16 Oral Anticoagulant Therapy INR Values:1. Low Intensity Therapy 1.5 - 2.02 . Moderate Intensity Therapy 2.0 - 3.03. High Intensity Therapy(1) 2.5 - 3. 54. High Intensity Therapy(2) 3.0 - 4.05. Panic Value INR > 5.0 SMNNTYCCBYGP4393-72-90 15:11:00* Test Item Value Reference Range Comments SODIUM (BEAKER) (test cmmv=598) 141 meq/L 136-145 POTASSIUM (BEAKER) (test emtu=374) 4.2 meq/L 3.5-5.1 CHLORIDE (BEAKER) (test mzny=251) 107 meq/L 98-107 CO2 (BEAKER) (test opep=484) 23 meq/L 22-29 BUN AND XORWTAFTVA0206-79-49 15:11:00* Test Item Value Reference Range Comments BLOOD UREA NITROGEN (BEAKER) (test mrda=475) 15 mg/dL 7-21 CREATININE (BEAKER) (test yhhf=851) 0.90 mg/dL 0.57-1.25 EGFR (BEAKER) (test hmgg=9303) 86 mL/min/1.73 sq m ESTIMATED GFR IS NOT ACCURATE CREATININE CLEARANCE IN PREDICTING GLOMERULAR FILTRATION RATE. ESTIMATED GFR IS NOT APPLICABLE FOR DIALYSIS PATIENTS. QOYHXZCIEN5895-70-27 15:06:00* Test Item Value Reference Range Comments HEMOGLOBIN (BEAKER) (test mqcm=859) 15.4 GM/DL 13.7-17.5 JDRELJVZPZ0487-83-59 16:59:00* Test Item Value Reference Range Comments HEMOGLOBIN (BEAKER) (test sziy=050) 16.3 GM/DL 13.0-16.8 LQDZDZNUOGCM6922-39-58 16:54:00* Test Item Value Reference Range Comments SODIUM (BEAKER) (test mwzg=549) 141 meq/L 136-145 POTASSIUM (BEAKER) (test awkh=415) 4.5 meq/L 3.5-5.1 Specimen slightly hemolyzed CHLORIDE (BEAKER) (test yvba=343) 107 meq/L 98-107 CO2 (BEAKER) (test tpji=450) 27 meq/L 22-29 KKHCUVL8502-73-93 16:54:00* Test Item Value Reference Range Comments GLUCOSE RANDOM (BEAKER) (test idhm=580) 102 mg/dL 70-105 Effective 05/27/2014: Reference Range Change-Adult onlyNew: 70-105 Previous: 70-110BUN AND JTPDPBKDZG2321-99-23 16:54:00* Test Item Value Reference Range Comments BLOOD UREA NITROGEN (BEAKER) (test cwpc=968) 21 mg/dL 7-21 CREATININE (BEAKER) (test xjvx=006) 1.02 mg/dL 0.57-1.25 Specimen slightly hemolyzed EGFR (BEAKER) (test dtmv=3924) 74 mL/min/1.73 sq m ESTIMATED GFR IS NOT ACCURATE CREATININE CLEARANCE IN PREDICTING GLOMERULAR FILTRATION RATE. ESTIMATED GFR IS NOT APPLICABLE FOR DIALYSIS PATIENTS.
--- OUTSIDE RECORDS SUMMARY | 2019-10-27 13:41 | XMS REPORT | Summary of Care ---
Author Author SHERWIN LLANOS Organization Unknown Address Unknown Phone Unavailable Care Team Providers Care Process Manager Name Role Phone SHERWIN LLANOS Unavailable Unavailable JANUSZ LOCKETT M.D. Unavailable Unavailable JI LUTZ MD Unavailable Unavailable JACQUES COKER [place], TORSTEN SANTIAGO Unavailable Unavailable RISHABH HAY [place], SHERWIN Unavailable Unavailable NATHAN COKER [place], CAT Flores Unavailable Unavailable Unavailable Unavailable Functional [...] MOUTH EVERY DAYNEEDS OFFICE VISIT Quantity: 30 LEVY Castano, JANUSZ * Start : 12-Apr-2017 Active Aspirin 325 [...] daily * Quantity: 30 Refills: 5 LEVY Devries., JANUSZ * Start : 09-Sep-2016 Active Metoprolol Tartrate 25 MG Oral Tablet TAKE 1 TABLET DAILY. * Quantity: 30 Refills: 5 LEVY Devries., JANUSZ * Start : 09-Sep-2016 Active Potassium Chloride Anh ER 20 MEQ Oral Tablet Extended Release Take 1 tablet by mouth daily Supervising MD: Rishabh Ramirez * Quantity: 90 Refills: 1 LEVY Devries., JANUSZ * Start : 09-Sep-2016 Active traMADol HCl - 50 MG Oral Tablet TAKE 1 TABLET EVERY 6 HOURS NEEDED FOR PAIN. * Quantity: 30 Refills: 0 SHERWIN LLANOS * Start : [...] Post Op Promis 29 Survey Date: 08-Aug-2019 History of Knee Surgery Left Completed History [...] to report Results Date Description Value Details [id number] [U] XRAY SHOULDER MIN 2 VWS LEFT 43394 XR SHOULDER MIN 2 VWS LEFT Images acquired, not reported on this accession number. [id number] [U] XRAY SHOULDER MIN 2 VWS LEFT 96516 XR SHOULDER MIN 2 VWS LEFT Images acquired, not reported on this accession number. Plan of Care Name Dates Details Planned Observations Planned Goals not documented Planned Encounters Appointment; SHERWIN TREVIZO P.A. On: 30-Sep-2019 9:45 Interventions Provided Medication Changes* traMADol HCl - 50 MG Oral Tablet - Renew Labs/Procedures/Imaging* [U] XRAY SHOULDER MIN 2 VWS LEFT [id number]; Done: 02 Sep 2019 Instructions Name Dates Details Instructions not documented Encounters Appointment; CAT EVANS M.D. Encounter Diagnosis: Problem not documented On: 25-Apr-2019 9:00 Appointment; TORSTEN HANNA M.D. Encounter Diagnosis: Problem not documented On: 03-Jun-2019 10:00 Appointment; TORSTEN HANNA M.D. Encounter Diagnosis: Problem not documented On: 30-Jul-2019 8:30 Appointment; SHERWIN TREVIZO PFidel Encounter Diagnosis: Problem not documented On: 05-Aug-2019 9:30 Appointment; SHERWIN TREVIZO P.A. Encounter Diagnosis: Problem not documented On: 02-Sep-2019 9:15
--- OUTSIDE RECORDS SUMMARY | 2019-10-27 13:41 | XMS REPORT | Summary of Care ---
Author Author Amy Hinojosa Organization Unknown Address Unknown Phone Unavailable Care Team Providers Care Business Intelligence Developer Name Role Phone RISHABH Fox, SHERWIN Unavailable Unavailable Amy Hinojosa Unavailable Unavailable LEVY Castano, JANUSZ Unavailable Unavailable NELDA COKER, JI BISWAS Unavailable Unavailable JACQUES COKER [place], TORSTEN SANTIAGO Unavailable Unavailable RISHABH HAY [place], SHERWIN Unavailable Unavailable NATHAN COKER [place], CAT Flores Unavailable Unavailable Unavailable Unavailable Functional [...] HOURS NEEDED. * Quantity: 360 Refills: 0 JANUSZ LOCKETT M.D. * Start : 09-Sep-2016 Active Eliquis 5 MG Oral Tablet Take 1 pill daily * Quantity: 30 Refills: 5 JANUSZ LOCKETT M.D. * Start : 09-Sep-2016 Active Enalapril Maleate 20 MG Oral Tablet Take 1 pill BID daily * Quantity: 60 Refills: 5 LEVY Calzada.Maria Fernanda., JANUSZ * Start : 09-Sep-2016 Active Fenofibrate 48 MG Oral Tablet TAKE 1 TABLET DAILY. * Quantity: 30 Refills: 5 LEVY Calzada.D., JANUSZ * Start : 09-Sep-2016 Active Furosemide 40 MG Oral Tablet Take 1 pill daily * Quantity: 30 Refills: 5 LEVY Calzada.Maria Fernanda., JANUSZ * Start : 09-Sep-2016 Active Metoprolol Tartrate 25 MG Oral Tablet TAKE 1 TABLET DAILY. * Quantity: 30 Refills: 5 LEVY M.D., JANUSZ * Start : 09-Sep-2016 Active Potassium Chloride Nah ER 20 MEQ Oral Tablet Extended Release Take 1 tablet by mouth daily Supervising MD: Rishabh Ramirez * Quantity: 90 Refills: 1 LEVY Calzada.Maria Fernanda., JANUSZ * Start : 09-Sep-2016 Active traMADol [...] Dates Details - Status: Name Dates Details Current every day smoker Vital Signs Date Test Result Details No Known Vitals to report Results Date Description Value Details [id number] [U] XRAY SHOULDER MIN 2 VWS LEFT [id number] XR SHOULDER MIN 2 VWS LEFT Images acquired, not reported on this accession number. Plan of Care Name Dates Details Planned Observations Planned Goals not documented Planned Encounters Appointment; SHERWIN TREVIZO P.A. On: 02-Sep-2019 9:15 Interventions Provided Labs/Procedures/Imaging* Post Op Promis 29 Survey; To Be Done: 08 Aug 2019 Instructions Name Dates Details Instructions not [...]
--- OUTSIDE RECORDS SUMMARY | 2019-10-27 13:41 | XMS REPORT | Encounter Summary ---
Author Organization Unknown Address [address] [place] [address] Phone [phone] Care Team Providers Care Box Nailer Name Role Phone Dr. Elsie Phan 3 [phone] Nicolas Tran MD 81 [phone] Reason for Visit Bilateral low back pain; hypertension Instructions 1. Benign hypertensive heart disease without congestive heart failure 2. Low back pain 3. Impaired glucose tolerance 4. Varicose veins of lower extremity 5. Stasis dermatitis and venous ulcer of lower extremity due to chronic peripheral venous hypertension 6. Peripheral vascular disease 7. Screening for cardiovascular system disease ankle brachial index Discussion Note: None recorded. Patient educational handouts: No information available. Plan of Care Reminders Provider Appointments None recorded. Lab None recorded. Referral None recorded. Procedures None recorded. Surgeries None recorded. Imaging Ankle Brachial Index 05/02/2019 [facility] Medications Name Start Date amlodipine 10 mg [...] day by oral route for 30 days. potassium chloride 20mg once a day tramadol 50 mg tablet Take 1 tablet every 8 hours by oral route as needed for 30 days. Tylenol Arthritis Pain 650 mg tablet,extended release Take 2 tablets every 8 hours by oral route as needed for 30 days. Medications Administered None recorded. Vitals Height Weight BMI Blood Pressure 5 ft 10 in 282.2 lbs 40.5 kg/m2 136/74 mm[Hg] Results Lab Results Date Name Specimen Result Interpretation Description Value Range Status Address 04/30/2019 HbA1C (Hemoglobin a1C), Blood High A1C W/eag 6.0 % 1.0-5.7 % Final [facility]: [facility] Tory Youssef [address] Average Blood Glucose 126 mg/dL Final [facility]: [facility] Tory Youssef [address] 04/30/2019 Hepatitis C Virus RNA, Quant, PCR, Serum or Plasma Normal Hepatitis C Antibody non-reactive non-reactive Final [facility]: 55 Tory elvira [address] Normal Signal to Cut-off 0.06 <1.00 Final [facility]: [facility] Tory Youssef [address] 04/30/2019 CBC W/ Auto Diff High Wbc 10.42 x10*3/L 4.23-9.07 x10*3/L Final [facility]: [facility] Tory elvira [address] Rbc 4.98 10*12/L 4.63-6.08 10*12/L Final [facility]: 55 Tory elvira [address] Hemoglobin 15.80 g/dL 13.70-17.50 g/dL Final [facility]: 55 Tory elvira [address] Hematocrit 46.1 % 40.1-51.0 % Final [facility]: 9[address] Tory Lofton [address] [place] [address] Mcv 92.6 fL 80.0-100.0 fL Final [facility]: [facility] Tory Youssef [address] Mch 31.7 pg 25.7-32.2 pg Final [facility]: 55 Tory Youssef [address] Mchc 34.3 g/dL 32.3-36.5 g/dL Final [facility]: [address] Tory Youssef [address] RDW-SD 43.4 fL 35.1-43.9 fL Final [facility]: 55 Tory elvira [address] Platelet Count 204.0 k/uL 163.0-337.0 k/uL Final [facility]: 55 Tory Youssef [address] High Mpv 11.7 fL 7.5-11.5 fL Final [facility]: 55 Tory Fwelvira [address] High Neut% 68.6 % 34.0-67.9 % Final [facility]: [address] Tory [address] [place] Low Lymph% 17.8 % 21.8-53.1 % Final [facility]: [address] [place] High Mon% 12.8 % 5.3-12.2 % Final [facility]: [address] [place] Low Eos% 0.5 % 0.8-7.0 % Final [facility]: [address] [place] Baso% 0.3 % 0.2-1.2 % Final [facility]: [address] [place] High Neut# 7.2 x10*3/L 1.8-5.4 x10*3/L Final [facility]: [address] [place] Lymph# 1.9 x10*3/L 1.3-3.6 x10*3/L Final [facility]: [address] [place] High Mon# 1.3 x10*3/L 0.3-0.8 x10*3/L Final [facility]: [address] [place] Eos# 0.05 x10*3/L 0.04-0.54 x10*3/L Final [facility]: [address] [place] Baso# 0.03 x10*3/L 0.01-0.08 x10*3/L Final [facility] [facility] CMP, Serum or Plasma Alt 29 U/L 0-55 U/L Final [facility] [address] [facility] Ast 29 U/L 5-34 U/L Final [facility] [address] [facility] Bun 19.1 mg/dL 8.4-25.0 mg/dL Final [facility] [address] [facility] Alk Phos 85 unit/L 40-150 unit/L Final [facility] [address] [facility] High Glucose 100 mg/dL 70-99 mg/dL Final [facility] [address] [facility] Albumin 3.8 g/dL 3.4-5.1 g/dL Final [facility] [address] [facility] Creatinine 1.00 mg/dL 0.72-1.25 mg/dL Final [facility]: [address], [place] eGFR Non- >60 mL/min/1.73m2 Final [facility]: [address] Tory Youssef [address] Total Bilirubin 1.0 mg/dL 0.2-1.2 mg/dL Final [facility]: [address] [facility] eGFR - >60 mL/min/1.73m2 Final [facility]: [address], [place] Sodium 139 mEq/L 135-145 mEq/L Final [facility]: [address] [place] [address] Potassium 4.1 mEq/L 3.5-5.1 mEq/L Final [facility]: [address] Tory Y[address] Chloride 107 mmol/L 98-110 mmol/L Final [facility]: [address] Tory Lofton [address] [place] [address] Total Protein 7.5 g/dL 6.1-8.2 g/dL Final [facility]: [address]on [address] [place] [address] Calcium 9.1 mg/dL 9.0-10.2 mg/dL Final [facility]: [address]fton [address] [place] [address] Co2 28.1 mmol/L 20.0-32.0 mmol/L Final [facility]: [address] [place] [address] Anion Gap 4 calc Final [facility]: [address] [place] [address] 04/30/2019 Lipid Panel, Serum Low Hdl 36 mg/dL Final [facility]: [address] Tory Y[address] Triglyceride 80 mg/dL 0-150 mg/dL Final [facility]: [address] [facility] VLDL (Calculated) 16 mg/dL Final [facility]: [address] cholesterol/HDL Ratio 3.6 mg/dL Final [facility]: [address] non-HDL Cholesterol (Calculated) 92 mg/dL 0-160 mg/dL Final [facility]: [address] Cholesterol 128 mg/dL 0-200 mg/dL Final [facility]: [address] LDL (Calculated) 76 mg/dL 0-130 mg/dL Final [facility]: [address] [place] [address], [place] 04/30/2019 TSH, Serum or Plasma Tsh 0.860 uIU/mL 0.350-4.940 uIU/mL Final [facility]: [address] [place] [address], [place] 04/30/2019 PSA, Serum or Plasma PSA, Total 1.10 NG/mL <4.00 NG/mL Final [facility]: [address] [place] [address], [place] 04/30/2019 Uric Acid, Serum or Plasma Uric Acid 6.2 mg/dL 3.5-7.2 mg/dL Final [facility]: [address] [place] [address], [place] 04/30/2019 Electrocardiogram Rate & Rhythm irregluarly irregular [facility]: [address] [address], [place] Qrs [facility]: [address] [place] [address], [place] Interval [facility]: [address] [place] [address], [place] QRS Duration [facility]: [address] [place] [address], [place] QT Interval [facility]: [address] [place] [address], [place] Visual Acuity R Eye Uncorrected 20/20 [facility]: [address] [place] [address], [place] L Eye Uncorrected 20/20 [facility]: [address] [place] [address], [place] Urinalysis, Dipstick Color Color yellow [facility]: [address] [place] [address], [place] Color Appearance clear [facility]: [address] [place] [address], [place] Color Glucose negative [facility]: [address] [place] [address], [place] Color Bilirubin negative [facility]: [address] [place] [address], [place] Color Ketones negative [facility]: [address] [place] [address], [place] Color Specific Branch 1.020 [facility]: [address] [place] [address], [place] Color Blood moderate [facility]: [address] [place] [address], [place] Color PH 5.5 [facility]: [address] [place] [address], [place] Color Protein negative [facility]: [address] Color Urobilinogen 0.2 [facility]: [address] Color Nitrites negative [facility]: [address] Color Leukocytes small [facility]: [address] Allergies Code Code System Name Reaction Severity Status Onset 2670 RxNorm Codeine Itching Active Problems Name Status Onset Date Source Obstructive Sleep Apnea of Adult Active 04/30/2019 Benign Hypertensive Heart Disease without Congestive Heart Failure Active 04/30/2019 Chronic Atrial Fibrillation Active 04/30/2019 Sick Sinus Syndrome Active 04/30/2019 Impaired Glucose Tolerance Active 05/01/2019 Procedures Date Name Performed by 04/09/2014 Knee Replacement Information not available 11/07/2013 Knee Replacement Information not available 04/08/2019 XR, Shoulder, 2 or More View [facility] [place] [address] [place] [address] [place] [address] (Work [address]) 04/30/2019 Electrocardiogram [facility] [address] [id number] (Work Place) 05/02/2019 Ankle Brachial Index [facility] [address] [phone] (Work Place) Vaccine List Vaccine Type pneumococcal [...] System Disease Xavier Arias Jr, MD: [address] [address], Ph. 04/30/2019 Adult Health Examination; Advance Directive [...] Fasting Glycaemia Xavier Arias Jr, MD: [address] [facility], [place] [address], Ph. 04/08/2019 Morbid Obesity; Influenza Vaccination Declined; Immunization; Screening for Malignant Neoplasm of Colon; Shoulder Joint Pain; Prediabetes Elsie Phan MD: [address] [place] [address], Ph. History of Present Illness Hypertension Reported By: Patient HPI: Severity: mild. Onset/Timing: gradual onset. Alleviating Factors: relieved with rest, medication. Self Care: not under emotional stress, blood pressure goal: 130/80. Associated Symptoms: no shortness of breath, no fatigue, no decline in exercise capacity Musculoskeletal Pain Reported By: Patient HPI: Location: pain is not radiating, lumbar spine. Quality: dull. Severity: worsening. Timing: constant. Alleviating factors: rest. Aggravating factors: movement/positioning. Associated Symptoms: no fever, no weak limbs, no tingling, no numbness of the legs/feet Hyperlipidemia Reported By: Patient HPI: Type of hyperlipidemia: combined, hypercholesterolemia. Duration: chronic. Current Therapy: currently taking:. Complications: no coronary artery disease Opioid Use Assessment Reported By: Patient Opioid Use Assessment:: Current Use of Opioids : no use of opioids (no further questions required) Note:{{Yes|No}} Review of Systems Comprehensive General Adult ROS, Comprehensive Adult Problem ROS Reported By: Patient Constitutional: Constitutional: no significant weight gain, no significant weight loss Cardiovascular: Cardiovascular: no chest pain, no shortness of breath when walking Respiratory: Respiratory: no cough, no wheezing, no shortness of breath Gastrointestinal: Gastrointestinal: normal appetite Musculoskeletal: Musculoskeletal: no soft tissue swelling, no joint swelling, back pain, myalgia Integumentary: Skin: no redness, no skin lesions, no swelling Neurologic: Neurologic: no weakness, no numbness. Neuro: no tingling Endocrine: Endocrine: no fatigue Hematologic/Lymphatic: Hematologic/Lymphatic no bruising Constitutional: Constitutional: no significant weight change Physical Exam General Adult Exam (male), Musculoskeletal and Joint Exam, Cardiology Exam, Low Back Pain Reported By: Patient Constitutional: General Appearance: well-nourished, well-developed, appears stated age. Level of Distress: NAD Lungs: Auscultation: good air movement, CTA except as noted, no wheezing, no rales/crackles, no rhonchi Cardiovascular: Heart Auscultation: RRR, normal S1, no rubs, no gallops, physiologically split S2, no click. Pulses including femoral / pedal: full and equal in all extremities except if noted. Systolic Murmur: not heard. Diastolic Murmur: not heard Musculoskeletal:: Joints, Bones, and Muscles: normal movement of all extremities. Extremities: no cyanosis, no edema, no peripheral signs of emboli. Right Hip: no tenderness. Left Hip: no tenderness. Lumbar / Lumbosacral Spine normal lordosis, tenderness on palpation, spasms. Soft Tissue/Bursa: tender point none Skin: Inspection and palpation: warm and dry Back: Thoracolumbar Appearance: no chest wall tenderness"
--- OUTSIDE RECORDS SUMMARY | 2019-10-27 13:41 | XMS REPORT | Summary of Care ---
Author Author SHERWIN LLANOS Organization Unknown Address Unknown Phone Unavailable Care Team Providers Care Director Of Informatics Name Role Phone SHERWIN LLANSO Unavailable Unavailable JANUSZ LOCKETT M.D. Unavailable Unavailable JI LUTZ MD Unavailable Unavailable JACQUES COKER GA, TORSTEN SANTIAGO Unavailable Unavailable RISHABH HAY GA, SHERWIN Unavailable Unavailable NATHAN COKER GA, CAT Flores Unavailable Unavailable Unavailable Unavailable Functional [...] DAILY. * Quantity: 30 Refills: 5 LEVY Calzada.Maria Fernanda., JANUSZ * Start : 09-Sep-2016 Active Furosemide 40 MG Oral Tablet Take 1 pill daily * Quantity: 30 Refills: 5 LEVY Calzada.Maria Fernanda., JANUSZ * Start : 09-Sep-2016 Active Metoprolol Tartrate 25 MG Oral Tablet TAKE 1 TABLET DAILY. * Quantity: 30 Refills: 5 LEVY Calzada.Maria Fernanda., JANUSZ * Start : 09-Sep-2016 Active Potassium [...] Z86.79) Status: Resolved Procedures Procedure Dates Details History of Knee Surgery Left Completed History [...] to report Results Date Description Value Details [id number] [U] XRAY SHOULDER MIN 2 VWS LEFT [id number] XR SHOULDER MIN 2 VWS LEFT Images acquired, not reported on this accession number. Plan of Care Name Dates Details Planned Observations Planned Goals not documented Planned Encounters Appointment; SHERWIN TREVIZO P.A. On: 02-Sep-2019 9:15 Interventions Provided Medication Changes* traMADol HCl - 50 MG Oral Tablet - Start Labs/Procedures/Imaging* [U] XRAY SHOULDER MIN 2 VWS LEFT [id number]; Done: 05 Aug 2019 Instructions Name Dates Details Instructions [...]
--- OUTSIDE RECORDS SUMMARY | 2019-10-27 13:41 | XMS REPORT | Encounter Summary ---
Author Organization Unknown Address [address] [place] [address] Phone [phone] Care Team Providers Care Environment Artist Name Role Phone Dr. Elsie Phan 3 [phone] Nicolas Tran MD 82 [phone] Reason for Visit AWV Annual Wellness Visit Male (VFP); Annual Alcohol Misuse Screening; Advance Care Plan; tingling/numbness; Left shoulder pain; fever Instructions 1. Adult health examination visual acuity electrocardiogram 2. Advance directive discussed with patient advance care planning: care instructions 3. Depression screening 4. Abdominal aortic aneurysm screening 5. Screening for malignant neoplasm of prostate PSA, serum or plasma 6. Screening for malignant neoplasm of colon fecal occult blood, stool 7. Alcohol consumption screening learning about alcohol misuse 8. Influenza vaccination declined 9. Benign hypertensive heart disease without congestive heart failure CBC w/ auto diff CMP, serum or plasma TSH, serum or plasma urinalysis, dipstick 10. Chronic atrial fibrillation 11. Hyperlipidemia colesterol alto: instrucciones de cuidado - [high cholesterol: care instructions] lipid panel, serum 12. Exposure to Hepatitis C virus hepatitis C virus RNA, quant, PCR, serum or plasma 13. Gout uric acid, serum or plasma 14. Obstructive sleep apnea of adult 15. Body mass index 40+ - severely obese aprenda acerca del peso saludable - [learning about healthy weight] ndice de masa corporal: instrucciones de cuidado - [body mass index: care instructions] 16. Morbid obesity learning about healthy weight 17. Blood in urine culture, urine 18. Idiopathic peripheral neuropathy 19. Full thickness rotator cuff tear orthopedic referral tramadol 50 mg tablet physical therapy referral - PLEASE CALL PATIENT TO SCHEDULE APPT 20. Arthritis of acromioclavicular joint 21. Localized, primary osteoarthritis of the shoulder region 22. Ventricular premature complex 23. Electrocardiogram abnormal 24. Impaired fasting glycaemia HbA1c (hemoglobin A1c), blood Discussion Note: None recorded. Plan of Care Patient Instructions It was good to see you in the office today for your Medicare Annual Wellness Visit. You have been provided some information on healthy nutrition, including a diet rich in fruits and vegetables, minimizing simple carbohydrates, salt, and saturated fats. I want to encourage regular cardiovascular exercise such as walking at least 30 minutes daily, 5 times per week. Please remember to schedule any preventive health measures that we talked about today. You have also been provided education on fall prevention and community- based lifestyle interventions to help reduce health risks and promote healthy living in your Annual Wellness folder. Screening Recommendations 1. Vaccines Pneumonia: No further need Influenza: Recommended today 2. Colorectal Cancer Screening: Recommended today 3. Annual Prostate Screening 4. Annual Depression Screening 5. Annual Alcohol Screening 6. Annual Fall Risk Screening 7. Annual Health Risk Assessment Patient Instructions on Filing Advance Directives Be sure that you have easy access to your paperwork for your medical power of erisa attorney and advanced directives. Be sure that the designated person as well as important family members have copies of those forms as well. Please have contact information of your designee readily available. In the event of hospitalization, please bring those important documents with you for reference. Reminders Provider Appointments Est Patient 05/10/2019 3:15PM Elsie Phan MD Lab CBC W/ Auto Diff 04/30/2019 [facility] CMP, Serum or Plasma 04/30/2019 [facility] TSH, Serum or Plasma 04/30/2019 [facility] Urinalysis, Dipstick 04/30/2019 [facility] Lipid Panel, Serum 04/30/2019 [facility] Hepatitis C Virus RNA, Quant, PCR, Serum or Plasma 04/30/2019 [facility] Uric Acid, Serum or Plasma 04/30/2019 [facility] PSA, Serum or Plasma 04/30/2019 [facility] Culture, Urine 04/30/2019 [facility] Fecal Occult Blood, Stool 04/30/2019 [facility] HbA1C (Hemoglobin a1C), Blood 04/30/2019 [facility] Referral Orthopedic Referral 04/30/2019 Anton Vaca MD Physical Therapy Referral 04/30/2019 [facility] Procedures None recorded. Surgeries None recorded. Imaging Electrocardiogram 04/30/2019 [facility] Medications Name Start Date allopurinol 100 mg tablet Take by oral route for 90 days. amlodipine 10 mg tablet Take 1 tablet [...] BMI Blood Pressure 5 ft 10 in 282 lbs 40.5 kg/m2 126/72 mm[Hg] Results Lab Results Date Name Specimen Result Interpretation Description Value Range Status Address Visual Acuity R Eye Uncorrected 20/20 [facility]: [address] [place] L Eye Uncorrected 20/20 [facility]: [address] [place] Urinalysis, Dipstick Color Color yellow [facility]: [address] [place] Color Appearance clear [facility]: [address] [place] Color Glucose negative [facility]: [address] [place] Color Bilirubin negative [facility]: [address] [place] Color Ketones negative [facility]: [address] [place] Color Specific [place] 1.020 [facility]: [address] [place] Color Blood moderate [facility]: [address] [place] Color PH 5.5 [facility]: [address] [place] Color Protein negative [facility]: [address] [place] Color Urobilinogen 0.2 [facility]: [address] [place] Color Nitrites negative [facility]: [address] [place] Color Leukocytes small [facility]: [address], [place] Allergies Code Code System Name Reaction Severity Status Onset 2670 RxNorm Codeine Itching Active Problems Name Status Onset Date Source Obstructive Sleep Apnea of Adult Active 04/30/2019 Benign Hypertensive Heart Disease without Congestive Heart Failure Active 04/30/2019 Chronic Atrial Fibrillation Active 04/30/2019 Sick Sinus Syndrome Active 04/30/2019 Procedures Date Name Performed by 04/09/2014 Knee Replacement Information not available 11/07/2013 Knee Replacement Information not available 04/08/2019 XR, Shoulder, 2 or More View [facility] [address] [address] [place] [address] (Work [address]) 04/30/2019 Electrocardiogram [facility] [address] [phone] (Work Place) Vaccine List Vaccine Type pneumococcal conjugate PCV 13 04/08/20190.5 mL Social History Tobacco Smoking Status Former Smoker (1/2 PPD) Past Encounters 04/30/2019 Adult Health Examination; Advance Directive Discussed [...] Impaired Fasting Glycaemia Xavier Arias Jr, MD: [address] [address], Ph. 04/08/2019 Morbid Obesity; Influenza Vaccination Declined; Immunization; Screening for Malignant Neoplasm of Colon; Shoulder Joint Pain; Prediabetes Elsie Phan MD: [address] [place] [address], Ph. History of Present Illness Shoulder pain Reported By: Patient Mini Cog Reported By: Patient Functional Ability: Personal/Social/ Draw a clock and write in the numbers in the correct place, and set the time to 10 minutes after 11 o'clock was completed correctly? Yes, 3 word recall: Your nurse or doctor will ask you to remember 3 words. In 5 minutes, they will ask you to repeat them. Patient recalled 3 words Opioid Use Assessment Reported By: Patient Opioid Use Assessment:: Current Use of Opioids : no use of opioids (no further questions required) Note:I'd like to talk about what is ahead with your illness and do some thinking in advance about what is important to you so I can make sure we provide you with the care you want-is that okay? {{Yes*|No}} Review of Systems Comprehensive General Adult ROS Reported By: Patient Constitutional: Constitutional: no significant weight gain, no significant weight loss Cardiovascular: Cardiovascular: no chest pain, no shortness of breath when walking Respiratory: Respiratory: no cough, no wheezing, no shortness of breath Endocrine: Endocrine: no fatigue Physical Exam Musculoskeletal and Joint Exam, Neurology Exam Reported By: Patient Constitutional: Weight: well-nourished. Ambulation: ambulates independently Head: Size/Trauma: normocephalic Mental Status: Orientation oriented to person, oriented to place, oriented to time. Mood/Affect: appropriate mood, appropriate affect. Language: has spontaneous speech. Memory: recent memory intact, remote memory intact. Fund of Knowledge: current events, past history"
--- OUTSIDE RECORDS SUMMARY | 2019-10-27 13:41 | XMS REPORT | Summary of Care ---
Author Author Milagros Mike M.A. Organization Unknown Address [facility] Phone Unavailable Care Team Providers Care Clinical Transformation Specialist Name Role Phone SHERWIN LLANOS Unavailable Unavailable Milagros Mike M.A. Unavailable Unavailable JANUSZ LOCKETT M.D. Unavailable Unavailable NELDA COKER, JI BISWAS Unavailable Unavailable JACQUES COKER [place], TORSTEN SANTIAGO Unavailable Unavailable RISHABH HAY [place], SHERWIN Unavailable Unavailable NATHAN COKER [place], CAT Flores Unavailable Unavailable Unavailable Unavailable Functional [...] DAILY. * Quantity: 30 Refills: 5 LEVY Castano, JANUSZ * Start : 09-Sep-2016 Active Furosemide [...] * Quantity: 30 Refills: 0 SHERWIN LLANOS Start : 05-Aug-2019 Active Allergies and Adverse [...] to report Results Date Description Value Details [id number] [U] XRAY SHOULDER MIN 2 VWS LEFT [id number] XR SHOULDER MIN 2 VWS LEFT Images acquired, not reported on this accession number. [id number] [U] XRAY SHOULDER MIN 2 VWS LEFT [id number] XR SHOULDER MIN 2 VWS LEFT Images acquired, not reported on this accession number. Plan of Care Name Dates Details Planned Observations Planned Goals not documented Planned Encounters Appointment; SHERWIN TREVIZO P.A. On: 30-Sep-2019 9:45 Instructions Name Dates Details Instructions not documented [...]
--- OUTSIDE RECORDS SUMMARY | 2019-10-27 13:42 | XMS REPORT | Encounter Summary ---
Author Organization Unknown Address [address] [place] [address] Phone [phone] Care Team Providers Care Store Keeper Name Role Phone Dr. Priya Garcia 3 [phone] Dr. Xavier Arias 3 [phone] Nicolas Tran MD 82 [phone] Reason for Visit Benign hypertensive heart disease without congestive heart failure; Impaired glucose tolerance; Hyperlipidemia; URI; Telemedicine Visit Instructions 1. Benign hypertensive heart disease without congestive heart failure 2. Hyperlipidemia colesterol alto: instrucciones de cuidado - [high cholesterol: care instructions] 3. Impaired glucose tolerance 4. Exposure to 2019 novel coronavirus 5. Upper respiratory infection Discussion Note: None recorded. Plan of Care Reminders Provider Appointments Telemedicine 15 on or around 10/21/2019 Xavier Arias Jr, MD Lab None recorded. Referral None recorded. Procedures None recorded. Surgeries None recorded. Imaging None recorded. Medications Name Start Date amlodipine 10 mg tablet Take 1 tablet every day by oral route. aspirin 81 mg tablet,delayed release Take 1 tablet [...] Take 1 tablet every day by oral route for 90 days. gabapentin 100 mg capsule Take 1 capsule [...] 30 days. Medications Administered None recorded. Vitals None recorded. Results Lab Results None recorded. Allergies Code Code System Name Reaction Severity Status Onset 5682 RxNorm Codeine Itching Active Problems Name Status Onset Date Source Obstructive Sleep Apnea of Adult Active 04/30/2019 Benign Hypertensive Heart Disease without Congestive Heart Failure Active 04/30/2019 Chronic Atrial Fibrillation Active 04/30/2019 Sick Sinus Syndrome Active 04/30/2019 Impaired Glucose Tolerance Active 05/01/2019 Hyperlipidemia Active 05/07/2019 Benign Essential Hypertension Active 05/07/2019 Congestive Heart Failure Active 05/07/2019 Peripheral Vascular Disease Active 05/07/2019 Gout Active 05/09/2019 Procedures Date Name Performed by 04/09/2014 Knee Replacement Information not available 11/07/2013 Knee Replacement Information not available Vaccine List Vaccine Type pneumococcal conjugate PCV 13 04/08/20190.5 mL Social History Tobacco Smoking Status Former Smoker (1/2 PPD) Past Encounters 10/18/2019 Benign Hypertensive Heart Disease without Congestive Heart Failure; Hyperlipidemia; Impaired Glucose Tolerance; Exposure to 2018 Novel Coronavirus; Upper Respiratory Infection Xavier Arias Jr, MD: [address] [facility], [address], [place] [address], Ph. 10/15/2019 Benign Hypertensive Heart Disease without Congestive Heart Failure; Hyperlipidemia; Chronic Atrial Fibrillation; Congestive Heart Failure Xavier Arias Jr, MD: [address] [facility], [address], [place] [address], Ph. History of Present Illness URI Reported By: Patient Upper Respiratory Symptoms: Onset/Timing: gradual. Duration: constant. Location: head, throat. Quality: no sore throat, nasal congestion/discharge, dry cough. Severity: moderate. Context: no sick contacts, no foreign travel. Associated Symptoms: no fever, no chills, no shortness of breath, no wheezing, no significant weight loss, no diarrhea, no nausea Note:I confirm that I received verbal consent from the patient for the virtual visit. Review of Systems Comprehensive General Adult ROS Reported By: Patient Constitutional: Constitutional: no night sweats, no significant weight loss, fever Eyes: Eyes: no vision change ENMT: Ears: no difficulty hearing, no ear pain. Mouth/Throat: sore throat Cardiovascular: Cardiovascular: no chest pain, no shortness of breath when walking Respiratory: Respiratory: no wheezing, no shortness of breath, cough Gastrointestinal: Gastrointestinal: no nausea, no diarrhea Musculoskeletal: Musculoskeletal: no arthralgias/joint pain Integumentary: Skin: no rashes Endocrine: Endocrine: fatigue Allergic/Immunologic: Allergy/Immunologic: no runny nose Physical Exam Upper Respiratory Infection Exam Comprehensive, Neurology Exam, Upper Respiratory Infection Exam, Telemedicine/Virtual Visit Reported By: Patient Head: Size/Trauma: normocephalic Constitutional: Weight: well-nourished. Ambulation: ambulates independently Mental Status: Orientation oriented to person, oriented to place, oriented to time. Mood/Affect: appropriate mood, appropriate affect. Language: has spontaneous speech. Memory: recent memory intact, remote memory intact. Fund of Knowledge: current events, past history
--- OUTSIDE RECORDS SUMMARY | 2019-10-27 13:42 | XMS REPORT | Encounter Summary ---
Author Organization Unknown Address [address] [place] [address] Phone [phone] Care Team Providers Care Stitching Machine Feeder Or Offbearer Name Role Phone Dr. Priya Garcia 3 [phone] Dr. Xavier Arias 3 [phone] Nicolas Tran MD 82 [phone] Reason for Visit URI; Telemedicine Visit Instructions 1. Upper respiratory infection Discussion Note: None recorded. Patient educational handouts: [...] Code System Name Reaction Severity Status Onset 503 RxNorm Codeine Itching Active Problems Name Status [...] Status Former Smoker (1/2 PPD) Past Encounters 10/21/2019 Upper Respiratory Infection Xavier Arias Jr, MD: [address], [place] [address], Ph. 10/18/2019 Benign Hypertensive Heart Disease without Congestive Heart Failure; Hyperlipidemia; Impaired Glucose Tolerance; Exposure to 2019 Novel Coronavirus; Upper Respiratory Infection Xavier Arias Jr, MD: [address], [place] [address], Ph. 10/15/2019 Benign Hypertensive Heart Disease without Congestive Heart Failure; Hyperlipidemia; Chronic Atrial Fibrillation; Congestive Heart Failure Xavier Arias Jr, MD: [address], [place] [address], Ph. History of Present Illness URI Reported By: Patient Upper Respiratory Symptoms: Onset/Timing: gradual. Duration: constant. Location: head, throat. Quality: no sore throat, dry cough. Severity: moderate. Context: no sick contacts, no foreign travel. Associated Symptoms: no fever, no chills, no shortness of breath, no wheezing, no significant weight loss, no diarrhea, no nausea Note:I confirm that I received verbal consent from the patient for the virtual visit. Review of Systems Comprehensive General Adult ROS Reported By: Patient Constitutional: Constitutional: no fever, no night sweats, no significant weight loss Eyes: Eyes: no vision change ENMT: Ears: no difficulty hearing, no ear pain. Mouth/Throat: no sore throat Cardiovascular: Cardiovascular: no chest pain, no shortness of breath when walking Respiratory: Respiratory: no cough, no wheezing, no shortness of breath Gastrointestinal: Gastrointestinal: no nausea, no diarrhea Musculoskeletal: Musculoskeletal: no arthralgias/joint pain Integumentary: Skin: no rashes Endocrine: Endocrine: no fatigue Allergic/Immunologic: Allergy/Immunologic: no runny nose Physical [...]
--- OUTSIDE RECORDS SUMMARY | 2019-10-27 13:42 | XMS REPORT | Encounter Summary ---
Author Organization Unknown Address [address] [place] [address] Phone [phone] Care Team Providers Care Assistant Designer Name Role Phone Dr. Priya Garcia 3 [phone] Dr. Xavier Arias 3 [phone] Nicolas Tran MD 81 [phone] Reason for Visit Benign hypertensive heart disease without congestive heart failure; Telemedicine Visit Instructions 1. Benign hypertensive heart disease without congestive heart failure amlodipine 10 mg tablet enalapril maleate 20 mg tablet 2. Hyperlipidemia atorvastatin 20 mg tablet 3. Chronic atrial fibrillation aspirin 81 mg tablet,delayed release Eliquis 5 mg tablet 4. Congestive heart failure furosemide 40 mg tablet Discussion Note: None recorded. Patient educational handouts: [...] Code System Name Reaction Severity Status Onset 0221 RxNorm Codeine Itching Active Problems Name Status [...] Status Former Smoker (1/2 PPD) Past Encounters 10/15/2019 Benign Hypertensive Heart Disease without Congestive Heart Failure; Hyperlipidemia; Chronic Atrial Fibrillation; Congestive Heart Failure Xavier Arias Jr, MD: [address] [facility] [facility] [address], [place] [address], Ph. History of Present Illness Hypertension Reported [...] use of opioids (no further questions required) Note:I confirm that I received verbal consent from the patient for the virtual visit.

{{Yes|No}} Review of Systems Comprehensive General Adult ROS, [...] Constitutional: no significant weight change Physical Exam Neurology Exam, Telemedicine/Virtual Visit Reported By: Patient Constitutional: Weight: well-nourished. Ambulation: ambulates independently Head: Size/Trauma: normocephalic Mental Status: Orientation oriented to person, oriented to place, oriented to time. Mood/Affect: appropriate mood, appropriate affect. Language: has spontaneous speech. Memory: recent memory intact, remote memory intact. Fund of Knowledge: current events, past history"
--- OUTSIDE RECORDS SUMMARY | 2019-10-27 13:42 | XMS REPORT | Summary of Care ---
Author Author Jaci Ulloa M.A. Unknown Address Unknown Phone Unavailable Care Team Providers Care Quantitative Research Analyst Name Role Phone RISHABH Fox, SHERWIN Unavailable Unavailable LEVY Castano, JANUSZ Unavailable Unavailable JI LUTZ MD Unavailable Unavailable JACQUES COKER [place], TORSTEN SANTIAGO Unavailable Unavailable RISHABH HAY MT, SHERWIN Unavailable Unavailable NATHAN COKER MT, CAT Flores Unavailable Unavailable Unavailable Unavailable Functional Status Name Dates Details Functional status health issues are not documented Status: Name Dates Details Cognitive status health issues are not documented Status: Problems Name Dates Details HTN (hypertension) (401.9, I10) Status: Active Diabetes mellitus (250.00, E11.9) Status: Active High cholesterol (272.0, E78.00) Status: Active Low blood potassium (276.8, E87.6) Status: Active Hypokalemia (276.8, E87.6) Status: Active Traumatic complete tear of left rotator cuff, initial encounter (840.4, S46.012A) Status: Active Chronic stasis dermatitis (454.1, I87.2) Status: Active ASVD (arteriosclerotic vascular disease) (440.9, I70.90) Status: Active COPD, moderate (496, J44.9) Status: Active Cellulitis (682.9, L03.90) Status: Active Left shoulder pain (719.41, M25.512) Status: Active Medications Name Dates Details amLODIPine [...] daily * Quantity: 60 Refills: 5 LEVY Castano, JANUSZ * Start : 09-Sep-2016 Active Fenofibrate [...] Castano, JANUSZ * Start : 09-Sep-2016 Active Potassium [...] [U] XRAY SHOULDER MIN 2 VWS LEFT 94819 Date: 27-Sep-2019 History of Knee Surgery Right Completed History of Knee Surgery Left Completed Immunization Name Dates Details Immunizations not [...] to report Results Date Description Value Details [id number] [U] XRAY SHOULDER MIN 2 VWS LEFT [id number] XR SHOULDER MIN 2 VWS LEFT Images acquired, not reported on this accession number. Plan of Care Name Dates Details Planned Observations Planned Goals not documented Planned Encounters Appointment; SHERWIN TREVIZO P.A. On: 30-Sep-2019 9:15 Interventions Provided Labs/Procedures/Imaging* [U] XRAY SHOULDER MIN 2 VWS LEFT [id number]; To Be Done: 30 Sep 2019 Instructions Name Dates Details Instructions [...] Diagnosis: Problem not documented On: 02-Sep-2019 9:15 Appointment; SHERWIN TREVIZO P.A. Encounter Diagnosis: Problem not documented On: 30-Sep-2019 9:15
--- OUTSIDE RECORDS SUMMARY | 2019-10-27 13:42 | XMS REPORT | Encounter Summary ---
Author Organization Unknown Address [address] [place] [address] Phone [phone] Care Team Providers Care Typesetter Apprentice Name Role Phone Dr. Priya Garcia 3 [phone] Dr. Xavier Arias 3 [phone] Nicolas Tran MD 82 [phone] Reason for Visit Benign hypertensive heart disease without congestive heart failure; Impaired glucose tolerance; Hyperlipidemia; URI; Telemedicine Visit Instructions 1. Benign hypertensive heart disease without congestive heart failure 2. Hyperlipidemia colesterol alto: instrucciones de cuidado - [high cholesterol: care instructions] 3. Impaired glucose tolerance 4. Exposure to 2019 novel coronavirus COVID-19 RNA, QL, solution spec-PCR, respiratory specimen 5. Upper respiratory infection Discussion Note: None recorded. Plan of Care Reminders Provider Appointments Telemedicine 15 on or around 10/21/2019 Xavier Arias Jr, MD Lab COVID-19 RNA, QL, solution spec-PCR, Respiratory Specimen 10/18/2019 [facility] Referral None recorded. Procedures None recorded. Surgeries [...] Code System Name Reaction Severity Status Onset 2669 RxNorm Codeine Itching Active Problems Name Status [...] Respiratory Infection Xavier Arias Jr, MD: [address], [address], [place] [address], Ph. 10/15/2019 Benign Hypertensive Heart Disease without Congestive Heart Failure; Hyperlipidemia; Chronic Atrial Fibrillation; Congestive Heart Failure Xavier Arias Jr, MD: [address], [place] [address], Ph. History of Present Illness URI Reported [...]
[2019-10-27] MEDS ORDERED: ASPIRIN 81 MG CHEW TAB PO ONE (13:45)
[2019-10-27] MEDS ORDERED: ONDANSETRON HCL INJ 2MG/ML 2ML 2 MG/ML VIAL IV NR (13:45)
[2019-10-27] MEDS ORDERED: MORPHINE SULFATE INJ 4 MG/ML INJ 1ML IV NR (13:45)
[2019-10-27] MEDS ORDERED: DIATRIZOATE MEGL/DIATRIZOA SOD 30 ML BTL PO ONE (13:51)
[2019-10-27 14:10] LABS: BASOPHILS % 0.2 % (0.0-1.0); EOSINOPHILS % 0.1 % (0.0-6.0); HEMATOCRIT 39.5 % (38.2-49.6); HEMOGLOBIN 13.3 g/dL (14.0-18.0); LYMPHOCYTES # (AUTO) 1.1 (1.0-3.2); LYMPHOCYTES % 5.7 % (18.0-39.1); MEAN CORPUSCULAR HEMOGLOBIN 30.2 pg (28-32); MEAN CORPUSCULAR HGB CONC 33.7 g/dL (31-35); MEAN CORPUSCULAR VOLUME 89.6 fL (81-99); MONOCYTES # (AUTO) 1.1 (0.2-0.8); MONOCYTES % 5.3 % (4.4-11.3); NEUTROPHILS # (AUTO) 17.5 (2.1-6.9); NEUTROPHILS % 88.1 % (38.7-80.0); PLATELET COUNT 325 x10e3/uL (140-360); RED BLOOD COUNT 4.41 x10e6/uL (4.3-5.7); RED CELL DISTRIBUTION WIDTH 13.9 % (11.7-14.4)
[2019-10-27 14:19] LABS: CLARITY,URINE CLOUDY (CLEAR); COLOR,URINE ORANGE (YELLOW)
[2019-10-27 14:20] LABS: BILIRUBIN,URINE SMALL (NEGATIVE); KETONES,URINE NEGATIVE (NEGATIVE); LEUKOCYTE ESTERASE ,URINE LARGE (NEGATIVE); NITRITE,URINE POSITIVE (NEGATIVE); PROTEIN,URINE DIPSTICK 2+ (NEGATIVE); URINE UROBILINOGEN 1 mg/dL (0.2 - 1)
[2019-10-27 14:25] LABS: BACTERIA,URINE MANY /HPF; RBC,URINE >50 /HPF (0-5); WBC,URINE (MAN) >50 /HPF (0-5)
[2019-10-27 14:27] LABS: EPITHELIAL CELLS,URINE FEW /LPF
[2019-10-27 14:29] LABS: INFLUENZAE A&B ANTIGEN (RAPID) NEGATIVE (NEGATIVE); STREPTOCOCCUS GRP A ANTIGEN NEGATIVE (NEGATIVE)
[2019-10-27 14:32] LABS: ALBUMIN 2.4 g/dL (3.5-5.0); ALBUMIN/GLOBULIN RATIO 0.6 (0.8-2.0); ANION GAP 12.6 mmol/L (8-16); CALCIUM 8.8 mg/dL (8.4-10.2); CREATININE, SERUM 1.28 mg/dL (0.72-1.25); POTASSIUM 3.6 mmol/L (3.5-5.1)
--- NOTE | 2019-10-27 14:33 | Diagnostic Imaging Report ---
EXAMINATION: PA and lateral views of the chest. COMPARISON: 11/12/2018. CLINICAL HISTORY: Pain. DISCUSSION: Lines/tubes: None. Lungs: Bibasilar atelectasis.. Mild pulmonary vascular congestion. Pleura: There is no pleural effusion or pneumothorax. Heart and mediastinum: Enlarged cardiomediastinal silhouette again observed. Bones and soft tissues: No acute bony abnormalities. Degenerative changes in the thoracic spine. Status post left shoulder replacement. IMPRESSION: Cardiomegaly without pulmonary edema. Signed by: Dr. Leonie Castellon M.D. on 10/27/2019 2:30 PM
[2019-10-27 14:39] LABS: CREATINE KINASE MB 1.7 ng/mL (0-5.0)
[2019-10-27] MEDS ORDERED: SODIUM CHLORIDE 0.9% 50ML 50 ML ONE (14:56)
[2019-10-27] MEDS ORDERED: IOPAMIDOL 370 MG/ML 200 ML INFUS..BTL INJ ONE (14:56)
--- NOTE | 2019-10-27 15:29 | NUR ---
{null, Patients daughter Priya Kim [phone] }
[2019-10-27] MEDS ORDERED: ONDANSETRON HCL INJ 2MG/ML 2ML 2 MG/ML VIAL IV PRN ×3 (15:30→18:30)
[2019-10-27] MEDS ORDERED: CIPROFLOXACIN 400 MG/D5W 200ML 200 ML IV SCH (16:00)
[2019-10-27] MEDS ORDERED: MORPHINE SULFATE INJ 4 MG/ML INJ 1ML IV PRN (16:00)
--- NOTE | 2019-10-27 16:09 | Diagnostic Imaging Report ---
EXAM: CT Abdomen and Pelvis WITH contrast INDICATION: Left-sided abdominal pain. Fever. COMPARISON: None. TECHNIQUE: Abdomen and pelvis were scanned utilizing a multidetector helical scanner from the lung base to the pubic symphysis after administration of IV contrast. Coronal and sagittal reformations were obtained. Routine protocol was performed. Scan was performed when during portal venous phase. IV CONTRAST: 100 cc Isovue 300. ORAL CONTRAST: Gastrografin and water mixture. RADIATION DOSE: Total DLP: 813.33 mGy*cm Estimated effective dose: (DLP x 0.015 x size factor) mSv COMPLICATIONS: None FINDINGS: LINES and TUBES: None. LOWER THORAX: Unremarkable HEPATOBILIARY: No focal hepatic lesions. No biliary ductal dilation. GALLBLADDER: There are stones in the gallbladder. No wall thickening. SPLEEN: No splenomegaly. PANCREAS: No focal masses or ductal dilatation. ADRENALS: No adrenal nodules KIDNEYS/URETERS: Left renal edema and heterogeneous attenuation, associated with perinephric stranding, in part secondary to a 0.7 cm obstructing calculus in the distal left ureter, however, cannot exclude superimposed infection. Trace left perinephric free fluid without loculated fluid collections. Rounded low-attenuation in the lateral interpolar region of the left kidney measuring 2.0 cm on image 41 represent an underlying cyst versus less likely a renal abscess. No right hydronephrosis. GI TRACT: No abnormal distention, wall thickening, or evidence of bowel obstruction. Appendix is normal. PELVIC ORGANS/BLADDER: Unremarkable. LYMPH NODES: No lymphadenopathy. VESSELS: There is moderate atherosclerotic disease in the aorta and major arterial branches. PERITONEUM / RETROPERITONEUM: Small moderate volume free fluid along the course of the left ureter may be secondary to hydrostatic pressure.. BONES: Multilevel lower thoracic and upper Schmorl nodes. Multilevel degenerative changes of the imaged thoracal lumbar spine. SOFT TISSUES: Unremarkable. IMPRESSION: 1. 0.7 cm obstructing calculus in the distal left ureter resulting in mild left hydroureteronephrosis. Possible superimposed infection/pyelonephritis. 2. Cholelithiasis. No cholecystitis or biliary dilatation. Signed by: Dr. Leonie Castellon M.D. on 10/27/2019 4:06 PM
[2019-10-27] MEDS: SODIUM CHLORIDE 0.9% 1000ML 1,000 ML IV SCH ×2 (16:34→21:10)
--- NOTE | 2019-10-27 16:34 | NUR ---
{null, PATIENT BEGAN HAVING CHILLS AND ASKING FOR BLANKETS AFTER HE GOT UP TO GO TO BATHROOM. PATIENTS TEMP 99.7 }
[2019-10-27 16:44] VITALS: BP 161/84
--- NOTE | 2019-10-27 16:44 | NUR ---
{null, Received patient lying in bed with eyes open. Respiration even and unlabored without SOB. Patient is having chills at this time. Call light in reach. }
[2019-10-27] MEDS ORDERED: ACETAMINOPHEN 325 MG TAB PO PRN ×2 (16:45→18:00)
[2019-10-27] MEDS ORDERED: HYDROCODONE/APAP 5MG-325MG TAB PO PRN ×2 (18:00→18:30)
[2019-10-27] MEDS ORDERED: HYDRALAZINE HCL 20 MG/ML VIAL IV PRN ×2 (18:00→18:30)
--- NOTE | 2019-10-27 19:00 | NUR ---
{null, Report given to cnc machinist 2nd shift nurse. Respiration even and unlabored without SOB. Call light in reach. }
--- NOTE | 2019-10-27 19:10 | NUR ---
{null, Spoke with Dr. Arnold and notified about the patient's abrasive mixer. Verbal order given to continue to hold Eliquis. }
[2019-10-27 19:45] LABS: CREATINE KINASE MB 1.7 ng/mL (0-5.0)
[2019-10-27 20:00] VITALS: BP 113/66
[2019-10-27 20:20] VITALS: BP 113/66
[2019-10-27] MEDS: MEROPENEM 500MG/ NS 50ML 50 ML IV SCH (21:10)
[2019-10-27] MEDS: ENALAPRIL MALEATE 10 MG TAB PO SCH (21:10)
[2019-10-27] MEDS: ATORVASTATIN 20 MG TAB PO SCH (21:10)
[2019-10-27 21:17] VITALS: BP 132/90
[2019-10-28] VITALS (9 sets, daily range): BP systolic 104–148; BP diastolic 58–99
[2019-10-28] MEDS: ACETAMINOPHEN 325 MG TAB PO PRN ×2 (01:23→18:15)
[2019-10-28] MEDS: MEROPENEM 500MG/ NS 50ML 50 ML IV SCH ×5 (01:30→23:42)
[2019-10-28] MEDS ORDERED: IBUPROFEN 600 MG TAB PO STA (02:06)
[2019-10-28] MEDS ORDERED: IBUPROFEN 200 MG TAB PO PRN (02:15)
[2019-10-28 05:27] LABS: BASOPHILS # (AUTO) 0.1 (0.0-0.1); BASOPHILS % 0.2 % (0.0-1.0); EOSINOPHILS % 0.1 % (0.0-6.0); HEMATOCRIT 35.9 % (38.2-49.6); HEMOGLOBIN 12.1 g/dL (14.0-18.0); LYMPHOCYTES # (AUTO) 1.3 (1.0-3.2); LYMPHOCYTES % 5.6 % (18.0-39.1); MEAN CORPUSCULAR HEMOGLOBIN 30.7 pg (28-32); MEAN CORPUSCULAR HGB CONC 33.7 g/dL (31-35); MEAN CORPUSCULAR VOLUME 91.1 fL (81-99); MONOCYTES # (AUTO) 1.5 (0.2-0.8); MONOCYTES % 6.1 % (4.4-11.3); NEUTROPHILS # (AUTO) 20.7 (2.1-6.9); PLATELET COUNT 303 x10e3/uL (140-360); RED BLOOD COUNT 3.94 x10e6/uL (4.3-5.7); RED CELL DISTRIBUTION WIDTH 14.1 % (11.7-14.4)
[2019-10-28] MEDS: SODIUM CHLORIDE 0.9% 1000ML 1,000 ML IV SCH ×2 (05:27→17:05)
[2019-10-28 05:55] LABS: CREATINE KINASE MB 0.7 ng/mL (0-5.0)
[2019-10-28 06:14] LABS: ALBUMIN 2.2 g/dL (3.5-5.0); ALBUMIN/GLOBULIN RATIO 0.6 (0.8-2.0); CALCIUM 8.8 mg/dL (8.4-10.2); CREATININE, SERUM 1.35 mg/dL (0.72-1.25)
--- NOTE | 2019-10-28 07:00 | NUR ---
{carl, Dr. Parker at the bedside. new orders were put in }
--- NOTE | 2019-10-28 07:45 | NUR ---
{null, consent form signed for Left Nephrostomy. pt education provided }
[2019-10-28 07:46] LABS: INR 1.62; PARTIAL THROMBOPLASTIN TIME 46.2 seconds (23.8-35.5); PROTHROMBIN TIME 20.4 seconds (11.9-14.5)
--- NOTE | 2019-10-28 08:01 | Consultation ---
DATE OF CONSULTATION: 10/28/2019 Urology Consultation REASON FOR CONSULTATION: Obstructive uropathy. HISTORY OF PRESENT ILLNESS: Lev Buckley is a 64-year-old man with a prior history of urolithiasis. The patient had urolithiasis about 4 years ago in [facility] and he passed a little stone. The patient had left-sided flank pain and reported to the emergency room, where he was evaluated and found to have obstructing left ureterolithiasis with left hydronephrosis. He had a low-grade fever upon presentation of about 100. Blood cultures were done. Urological consultation was ordered. The patient overnight had a fever to 102.1 around 1:30 in the morning; unfortunately, I was not notified at that time. The patient denies problems urinating. Denies any hematuria and denies any dysuria at the present time. PAST MEDICAL AND SURGICAL HISTORY: 1. Prior urolithiasis. 2. Status post left shoulder replacement. 3. Status post bilateral knee replacement. 4. Hypertension. 5. Hypercholesterolemia. FAMILY HISTORY: Noncontributory to the active urological problems. CURRENT MEDICATIONS: Please refer the MAR. ALLERGIES: CODEINE. SOCIAL HISTORY: The patient smokes half a pack per day of cigarettes. Denies ethanol drug use. The patient is a retired [employer] truck driver. REVIEW OF SYSTEMS: Discussed as above with history of present illness and past medical history, otherwise negative for all systems. PHYSICAL EXAMINATION: GENERAL: Healthy-appearing, but acutely ill-appearing 64-year-old man sitting up in bed, in no apparent distress. VITAL SIGNS: Temperature maximum is 102.1. His vital signs are currently stable. ABDOMEN: Soft, nondistended, tender in the left flank with left costovertebral angle tenderness. Kidneys not palpable without hepatosplenomegaly. No obvious evidence of hernia without hepatosplenomegaly. The patient is obese. GENITOURINARY: Testes are descended bilaterally. Testes and epididymides bilaterally palpably normal. The patient has a very small urethral meatus consistent with scarring. There is no tenderness. For the remaining physical examination systems, please refer to see the ERT sheet and the history and physical by the admitting physician. LABORATORY STUDIES: Urine blood cultures are pending from the emergency room for culture is preliminarily negative. The patient's white blood cell count is 23,770, hemoglobin 12.1, and platelets 303,000. The patient's sodium is slightly low at 135. His creatinine is low and is elevated at 1.35. CT scan of the abdomen and pelvis was done, it was done with contrast. The patient has 7 mm obstructing stone in distal left ureter with hydroureteronephrosis. Cholelithiasis was also present on CT. ASSESSMENT: 1. Urinary tract infections/impending urosepsis, present on admission. 2. Left ureterolithiasis. 3. Left hydronephrosis. 4. Left renal colic. 5. Meatal stenosis. 6. Presumably acute renal failure. 7. History of prior stone. 8. Obesity. 9. Leukocytosis. 10. Anemia. 11. Mild hyponatremia. 12. Gallstone. PLAN: 1. Stat left nephrostomy. 2. Hematological and electrolyte abnormalities per primary team. 3. Urological procedures for stone once infection is controlled. Thank you much for involving us in care of your patient. We will be happy to follow along with you as well as an outpatient. Servando Parker MD [facility] /[id number]
[2019-10-28] MEDS: ASCORBIC ACID 500 MG TAB PO SCH ×2 (08:28→16:33)
[2019-10-28] MEDS: NIFEDIPINE CR 30 MG TAB PO SCH (09:00)
[2019-10-28] MEDS ORDERED: MAGNESIUM OXIDE 400 MG TAB PO SCH (09:00)
[2019-10-28] MEDS: ENALAPRIL MALEATE 10 MG TAB PO SCH (09:00)
[2019-10-28] MEDS ORDERED: POTASSIUM CHLORIDE 20 MEQ TAB CR PO SCH (09:00)
[2019-10-28] MEDS ORDERED: FUROSEMIDE 40 MG TAB PO SCH (09:00)
[2019-10-28] MEDS ORDERED: ASPIRIN 81 MG CHEW TAB PO SCH (09:00)
[2019-10-28] MEDS ORDERED: AMLODIPINE BESYLATE 10 MG TAB PO SCH (09:00)
[2019-10-28] MEDS ORDERED: LIDOCAINE HCL 1% LOCAL INJ 20 ML VIAL ONE (09:23)
[2019-10-28] MEDS ORDERED: IOPAMIDOL 300MG/ML 100 ML INFUS..BTL IV ONE (09:23)
[2019-10-28] MEDS ORDERED: SODIUM CHLORIDE 0.9% 250ML 250 ML ONE (09:24)
--- NOTE | 2019-10-28 10:21 | NUR ---
{null, received bedside report. pt is alert resting in bed, no s/s of distress. call light within reach and instructed pt to call RN for help }
--- NOTE | 2019-10-28 10:26 | NUR ---
{null, Telephonic visit. Pt. expressed no spiritual or emotional concerns at this time. Top Tile Decorator provided hospitality and information on how to reach lead accountant, if needed. ADRIANE ORDONEZ Top Tile Decorator Spiritual Care Department O: [phone] }
--- NOTE | 2019-10-28 10:27 | NUR ---
{null, pt was taken to IR for L nephrostomy procedure via hospital bed }
[2019-10-28] MEDS ORDERED: FENTANYL CITRATE/PF 100MCG/2 ML INJ ONE ×2 (10:44→13:08)
[2019-10-28] MEDS ORDERED: MIDAZOLAM HCL 2 MG/2 ML VIAL ONE ×2 (10:44→13:07)
[2019-10-28] MEDS ORDERED: FUROSEMIDE INJ 10 MG/ML 4 ML VIAL ONE (12:44)
--- NOTE | 2019-10-28 13:48 | NUR ---
{null, received pt from IR. pt is alert, no s/s of distress. food tray provided and pt is sitting up eating. dressing on left lower flank is c/d/i }
[2019-10-28 14:28] LABS: CREATINE KINASE MB 1.2 ng/mL (0-5.0)
--- NOTE | 2019-10-28 14:51 | Diagnostic Imaging Report ---
PROCEDURE: Genitourinary catheter placement Procedural Personnel Attending physician(s): Jose Woodard MD Fellow physician(s): None Resident physician(s): None Advanced practice provider(s): None Pre-procedure diagnosis: Ureteral obstruction Post-procedure diagnosis: Same Indication: Urinary obstruction, left distal ureteral calculus Catheter(s) placed because the previous catheter(s) became dislodged within 30 days of placement (QCDR): No Additional clinical history: None Complications: No immediate complications. IMPRESSION: Left nephrostomy tube placement. Plan: PCN to gravity drainage. Routine exchange in 8-10 weeks if catheter is still needed. PROCEDURE SUMMARY - Target organ: Unilateral [place] kidney - Image-guided placement of genitourinary catheter(s) - Additional procedure(s): None PROCEDURE DETAILS: Pre-procedure Consent: Informed consent for the procedure including risks, benefits and alternatives was obtained and time-out was performed prior to the procedure. Preparation: The site was prepared and draped using maximal sterile barrier technique including cutaneous antisepsis. Anesthesia/sedation Level of anesthesia/sedation: Moderate sedation (conscious sedation) Anesthesia/sedation administered by: Independent trained observer under attending supervision with continuous monitoring of the patient?s level of consciousness and physiologic status Total intra-service sedation time (minutes): 45 Left genitourinary catheter placement Local anesthesia was administered. A needle was advanced into the renal collecting system under ultrasound and fluoroscopy guidance. A wire was advanced, the tract was serially dilated and a nephrostomy tube was placed . Contrast injection was performed. Genitourinary catheter placed: 10Fr Uresil Findings: No significant hydronephrosis. External catheter securement: Non-absorbable suture Additional genitourinary system intervention Genitourinary intervention: None Location of intervention: Not applicable Device used: Not applicable Description of intervention: Not applicable Post-intervention findings: Not applicable Contrast Contrast agent: Isovue 370 Contrast volume (mL): 10 Radiation Dose Fluoroscopy time (minutes): 5.0 Reference air kerma (mGy): 86.6 Additional Details Additional description of procedure: None Equipment details: None Specimens removed: None. A sample was not sent for analysis. Estimated blood loss (mL): Less than 10 Standardized report: [email or web address] Attestation Signer name: Jose Woodard MD I attest that I was present for the entire procedure. I reviewed the stored images and agree with the report as written. Signed by: Jose Woodard MD on 10/28/2019 2:48 PM
--- NOTE | 2019-10-28 16:21 | Diagnostic Imaging Report ---
EXAM: CT Abdomen and Pelvis WITHOUT intravenous contrast INDICATION: Ureteral calculus, urinary obstruction, hydronephrosis HISTORY: The patient was brought to interventional radiology for left percutaneous nephrostomy placement. Upon sonographic evaluation, improvement in previously seen hydronephrosis from CT of 10/27/[address] was noted. Repeat noncontrast CT scan is performed to assess whether the previously seen distal ureteral calculus has passed and to reassess the need for percutaneous nephrostomy. COMPARISON: CT abdomen and pelvis 10/27/2019 TECHNIQUE: Abdomen and pelvis were scanned utilizing a multidetector helical scanner from the lung base to the pubic symphysis without administration of IV contrast. Coronal and sagittal reformations were obtained. IV CONTRAST: None ORAL CONTRAST: Water COMPLICATIONS: None RADIATION DOSE: Total DLP: 907 mGy*cm Dose modulation, iterative reconstruction, and/or weight based adjustment of the mA/kV was utilized to reduce the radiation dose to as low as reasonably achievable. FINDINGS: LOWER THORAX: Left lower lobe dependent subsegmental atelectasis. HEPATOBILIARY: No focal liver lesion. Cholelithiasis without CT evidence of cholecystitis. SPLEEN: No splenomegaly. PANCREAS: No focal masses or ductal dilatation. ADRENALS: No adrenal nodules. KIDNEYS/URETERS: No significant change in location of previously described 7 mm left distal ureteral calculus. Unchanged fat stranding associated with the left kidney and left ureter. Hydronephrosis has improved compared to the prior CT and is now minimal. Heterogeneous parenchymal attenuation of the left kidney persists. PELVIC ORGANS/BLADDER: Residual contrast material in the bladder. PERITONEUM / RETROPERITONEUM: No free air or fluid. LYMPH NODES: No lymphadenopathy. VESSELS: Moderate atherosclerotic calcifications of the nonaneurysmal abdominal aorta and major branches. GI TRACT: No abnormal bowel thickening. No bowel obstruction. Residual oral contrast material in the colon. Normal appendix. BONES AND SOFT TISSUES: No acute osseous injury. IMPRESSION: No significant interval change in location of 7 mm left distal ureteral calculus. Interval improvement in left hydronephrosis, now minimal. Persistent fat stranding associated with the left kidney, which remains heterogeneous in attenuation, and left ureter are consistent with upper urinary tract infection. Will proceed with interventional radiology placement of left percutaneous nephrostomy given persistent left distal ureteral stone and patient's leukocytosis and fever. The above findings were discussed with Dr. Parker on 10/28/2019 12:14 PM, who responded indicating that the communication was understood. Signed by: Jose Woodard MD on 10/28/2019 4:17 PM
[2019-10-28 19:27] LABS: BASOPHILS % 0.2 % (0.0-1.0); HEMATOCRIT 39.7 % (38.2-49.6); HEMOGLOBIN 13.3 g/dL (14.0-18.0); LYMPHOCYTES % 4.5 % (18.0-39.1); MEAN CORPUSCULAR HEMOGLOBIN 30.4 pg (28-32); MEAN CORPUSCULAR HGB CONC 33.5 g/dL (31-35); MEAN CORPUSCULAR VOLUME 90.6 fL (81-99); MONOCYTES # (AUTO) 1.4 (0.2-0.8); MONOCYTES % 6.4 % (4.4-11.3); NEUTROPHILS # (AUTO) 19.2 (2.1-6.9); NEUTROPHILS % 88.3 % (38.7-80.0); PLATELET COUNT 321 x10e3/uL (140-360); RED BLOOD COUNT 4.38 x10e6/uL (4.3-5.7); RED CELL DISTRIBUTION WIDTH 14.1 % (11.7-14.4)
[2019-10-28 19:44] LABS: ALBUMIN 2.3 g/dL (3.5-5.0); ALBUMIN/GLOBULIN RATIO 0.5 (0.8-2.0); ANION GAP 12.8 mmol/L (8-16); CREATININE, SERUM 1.24 mg/dL (0.72-1.25); POTASSIUM 3.8 mmol/L (3.5-5.1)
[2019-10-28] MEDS: ATORVASTATIN 20 MG TAB PO SCH (20:35)
--- NOTE | 2019-10-28 23:24 | Consultation ---
DATE OF CONSULTATION: 10/28/2019 REASON FOR CONSULTATION: The patient has fever and chills. Recommendation antibiotic. Pyelonephritis. HISTORY OF PRESENT ILLNESS: This patient is a 64-year-old [place] gentleman, who has history of nephrolithiasis. Four years ago, he was in [place]. He passed on a stone. The patient comes in with left side flank pain. He had fever and chills. Upon presentation, the patient was seen by Urology. The patient who also has a history of osteoarthritis, left shoulder replacement, bilateral total knee replacement, hypertension, hypercholesteremia and obesity, comes in with the above complaint fever, chills and pain. The patient was immediately nephrostomy tube placed. I was asked to see him. He is feeling better. PAST MEDICAL HISTORY: As mentioned above, renal stone, osteoarthritis, hypertension, and hypercholesteremia. PAST SURGICAL HISTORY: Left shoulder replacement, bilateral total knee replacement. ALLERGIES: NKA. SOCIAL HISTORY: There is no smoking, drug abuse, or alcohol abuse. FAMILY HISTORY: Otherwise unremarkable. LABORATORY DATA: When he first came, his white count was 19, today 23.77, hemoglobin 12.1. His sodium 135, potassium 4.0 with creatinine 1.35. The patient had the testing for COVID, so far is negative. His cultures still pending. MEDICATIONS: He is currently on calcium, meropenem, and ibuprofen. PHYSICAL EXAMINATION: GENERAL: He is currently alert, oriented, does not seem to be in acute distress. VITAL SIGNS: Stable. Currently, his T-max 102.6. HEENT: Not icteric. NECK: Supple. CHEST: Clear bilateral. HEART: S1, S2. ABDOMEN: Soft and obese. No tenderness. No hepatosplenomegaly. He has a left nephrostomy tube on the left side, . IMPRESSION: 1. Pyelonephritis with obstruction. 2. Sepsis present on admission. 3. Left ureterolithiasis. 4. Left hydronephrosis. 5. Left renal colic. 6. Meatal stenosis. 7. Acute on chronic kidney disease. 8. Obesity. 9. Hypertension. I agree with blood cultures and urine cultures. I agree with meropenem. Recheck CBC. Recheck Chem panel. We will modify after the availability of the culture and sensitivity. We will follow with you. MD ROSALIND Martinez /[id number]
[2019-10-29] VITALS: BP 97/69
--- NOTE | 2019-10-29 03:35 | History and Physical ---
CHIEF COMPLAINT: Flank pain and abdominal pain. HISTORY OF PRESENT ILLNESS: A 64-year-old male, morbidly obese, history of hyperlipidemia, and hypotension, who came into the emergency room with complaints of underlying left-sided flank pain, ongoing for the last one day. He reports having subjective fever at home. He was found to have a temperature of 102.1. The patient was found to have a 7 mm ureteral stone obstruction, needing a Urology consultation. The patient then underwent a left nephrostomy tube placed this morning by IR. The patient was seen and evaluated at bedside on the medical floor. He is currently doing much better with no other issues at this time. REVIEW OF SYSTEMS: Pertinent positives left-sided flank pain, abdominal pain, nausea, vomiting, or fever. The rest of 14-point review of systems are reviewed with the patient and are negative. ALLERGIES: CODEINE. HOME MEDICATIONS: Amlodipine, ascorbic acid, aspirin, atorvastatin, enalapril, furosemide, magnesium oxide, nifedipine ER, , Cipro, Bactrim, zinc oxide, Eliquis, and multivitamin. PAST MEDICAL HISTORY: Hypertension, atrial fibrillation, morbidly obese, history of ureteral stones, and hyperlipidemia. PAST SURGICAL HISTORY: Reports none. FAMILY HISTORY: . SOCIAL HISTORY: No drugs. No alcohol. Does not smoke. Good social support. PHYSICAL EXAMINATION: VITAL SIGNS: Temperature is 99.9, T-max 102.8, pulse 74, respiratory rate is 26, blood pressure is 110/68, and pulse ox 97% on room air. GENERAL: In no acute distress. Alert and oriented x3. Cooperative on examination. HEENT: Head, normocephalic and atraumatic. Eyes: Pupils are equal round, and reactive to light bilaterally. Extraocular movements intact bilaterally. Throat; no evidence of erythema or exudates in the posterior pharynx. Has poor dentition. NECK: Supple. Good range of motion. PULMONARY: Clear to auscultation bilaterally. No wheezing, rales, or rhonchi. No crackles appreciated. CARDIOVASCULAR: Positive S1 and S2. No murmurs, rubs, or gallops appreciated. ABDOMEN: Soft, nondistended, and nontender to palpation. Bowel sounds present. MUSCULOSKELETAL: No evidence of any muscle deficits on examination. No weakness appreciated. NEUROLOGIC: Cranial nerves 2 thorough 12 grossly intact. No evidence of any neurological deficits on exam. SKIN: Intact. Warm to touch. Good cap refill. PSYCHIATRIC: Normal affect and mood. EXTREMITIES: No edema. Good range of motion throughout. GENITOURINARY: Left-sided nephrostomy tube. LABORATORY DATA: Lab finding show white count of 21.7, hemoglobin 13, hematocrit 39, and platelets of 321. Chemistry; sodium 138, potassium 3.8, chloride 103, bicarb 26, anion gap of 12, BUN is 27, creatinine is 1.24, and glucose . Lactic acid is 2. LFTs are normal. Troponins were negative. Albumin 2.2. TSH is 1. Urinalysis concerning for UTI. Serology influenza negative. Group A strep negative. MICROBIOLOGY: Throat cultures, no growth. Urine cultures, no growth. Blood cultures are pending so far. Preliminary blood culture shows gram-negative rods. Repeat blood cultures collected. IMAGING STUDIES: Shows a 7 mm left distal ureteral calculus with mild left hydronephrosis with underlying pyelonephritis. Chest x-ray, cardiomegaly without pulmonary edema. IMPRESSION: 1. Left-sided flank pain with a 7 mm obstructive ureteral stone, status post nephrostomy tube. 2. Sepsis with leukocytosis/bacteremia/urinary tract infection. 3. Hypotension. 4. Morbidly obese. PLAN: At this time, the patient underwent nephrostomy tube as recommended by Urology. Dr. Parker has been consulted. Monitor blood cultures. So far, they have been positive. Repeat blood cultures have been collected. Continue with IV antibiotics. ID was consulted. The patient has a history of atrial fibrillation, which I consulted with Cardiology as anticoagulation will have to held due to underlying nephrostomy tube. I did hold his antihypertensive medications as his blood pressure is relatively on the lower end. Continue with PT/OT evaluation. Heart healthy diet. At this time, hold anticoagulation due to a nephrostomy tube. We will continue to monitor very closely. MD PARAS Bo/AVA /[id number]
[2019-10-29 04:00] VITALS: BP 132/82
[2019-10-29] MEDS: SODIUM CHLORIDE 0.9% 1000ML 1,000 ML IV SCH ×2 (05:12→21:25)
[2019-10-29 05:20] LABS: BASOPHILS % 0.2 % (0.0-1.0); EOSINOPHILS % 0.1 % (0.0-6.0); HEMATOCRIT 38.7 % (38.2-49.6); LYMPHOCYTES # (AUTO) 1.6 (1.0-3.2); LYMPHOCYTES % 8.2 % (18.0-39.1); MEAN CORPUSCULAR HEMOGLOBIN 30.3 pg (28-32); MEAN CORPUSCULAR HGB CONC 33.6 g/dL (31-35); MEAN CORPUSCULAR VOLUME 90.2 fL (81-99); MONOCYTES # (AUTO) 1.2 (0.2-0.8); MONOCYTES % 6.2 % (4.4-11.3); NEUTROPHILS # (AUTO) 16.7 (2.1-6.9); NEUTROPHILS % 84.5 % (38.7-80.0); PLATELET COUNT 323 x10e3/uL (140-360); RED BLOOD COUNT 4.29 x10e6/uL (4.3-5.7); RED CELL DISTRIBUTION WIDTH 14.3 % (11.7-14.4)
[2019-10-29 05:44] LABS: BLOOD UREA NITROGEN 27 mg/dL (7-26); BUN/CREATININE RATIO 24 (6-25); CALCIUM 8.8 mg/dL (8.4-10.2); CARBON DIOXIDE 27 mmol/L (22-29); CHLORIDE 103 mmol/L (98-107); CREATININE, SERUM 1.11 mg/dL (0.72-1.25); EST GLOMERULAR FILTRATION RATE > 60 ML/MIN (60-); GLUCOSE 105 mg/dL (74-118); SODIUM 136 mmol/L (136-145)
[2019-10-29] MEDS: MEROPENEM 500MG/ NS 50ML 50 ML IV SCH ×4 (05:54→23:57)
--- NOTE | 2019-10-29 07:20 | NUR ---
{null, PATIENT IS AWAKE, ALERT, AND IN STABLE CONDITION WITH NO S/S OF RESPIRATORY DISTRESS- PATIENT IS SITTING ON THE SIDE OF THE BED. NO PAIN VOICED. TELEMETRY APPLIED. NEPHROSTOMY TUB NOTED TO LEFT LOWER FLANK AREA; URINE IS STRAW LIKE IN COLOR AND CLEAR. CALL LIGHT IS WITHIN REACH, PATIENT INSTRUCTED TO CALL FOR ASSISTANCE NEEDED. }
[2019-10-29] MEDS: ASCORBIC ACID 500 MG TAB PO SCH ×2 (08:13→16:32)
[2019-10-29] MEDS: NIFEDIPINE CR 30 MG TAB PO SCH (08:13)
[2019-10-29 08:34] VITALS: BP 117/52
[2019-10-29 08:38] VITALS: BP 117/52
--- NOTE | 2019-10-29 08:43 | NUR ---
{null, DR. KIRKLAND MADE AWARE OF THE SIRS ALERT FROM THE PATIENT'S SEPSIS SCREEN THIS MORNING. NO NEW ORDER RECEIVED. }
--- NOTE | 2019-10-29 09:18 | NUR ---
{null, CALL PLACED OUT TO DR. GARCIA REGARDING 1 RUN OF V-TACH NOTED BY STARTER MECHANIC. AWAITING CALLBACK. }
--- NOTE | 2019-10-29 09:46 | Progress Note ---
DATE: 10/29/2019 SUBJECTIVE: Mr. Buckley is a pleasant 64-year-old gentleman, morbidly obese with complicated past medical history, presented with the left-sided flank pain. The patient is status post nephrostomy. Immediately on admission, blood culture and urine culture showing gram-negative bacilli, but identification and sensitive pending. Overall, feels better. REVIEW OF SYSTEMS: Pain has improved. No nausea. No vomiting. No fever. No chills. No chest pain. No shortness of breath. No dysuria. The patient asking when we can remove the nephrostomy tube. PHYSICAL EXAMINATION: VITAL SIGNS: Blood pressure is 117/52, temperature 99.6, pulse 82, respirations 24. GENERAL: Alert and oriented, responds appropriately, very pleasant. CV: S1 and S2. CHEST: Equal expansion. Clear to auscultation. No acute distress. ABDOMEN: Morbidly obese, soft, and nontender. Bowel sounds positive. HEENT: Moist. No pallor. No JVD. EXTREMITIES: No significant edema. Moves all extremities. No acute finding. The patient is status post left-sided nephrostomy tube with a pinkish urine in the bag. MEDICATIONS LIST: Medication list reviewed. As far as Infectious Disease point of view, the patient is on meropenem 500 mg IV piggyback q.6 hours. LABORATORY STUDIES: White count of 19.75, hemoglobin 13, platelet 323. Sodium 136, potassium 4, creatinine 1.11, improved from 1.24. SEROLOGY: Influenza A and B antigen and group A strep screen is negative. MICROBIOLOGY: Blood culture and urine culture both showing gram-negative bacilli. However, identification and sensitivity pending. Also recheck blood culture and nephrostomy tube drainage in progress. RADIOLOGY STUDIES: He had a CT of abdomen and pelvis done yesterday, which showed 7 mm left distal ureteral calculus with interval improvement of the left hydronephrosis. ASSESSMENT AND PLAN: This is a pleasant 64-year-old gentleman, who came with left-sided/left flank pain, found to have pyelonephritis. 1. Sepsis on admission. 2. Left ureterolithiasis. 3. Left hydronephrosis. 4. Left renal stone. 5. Meatal stenosis. 6. Obesity. 7. Chronic kidney disease-improved creatinine level. 8. Hypertension. 9. Morbid obesity. 10. Status post nephrostomy tube on the left. 11. Follow up with the cultures as mentioned above, continue with meropenem. Follow up with the renal function. Monitored leukocytosis. Clinically feels better and seems to be improving. Continue monitor patient clinically. Follow up with the labs. Discussed with Dr. Olvera in details. Please refer to chart for more information. Dictated by Osmar Abreu) DAVID Chaparro Reagan Olvera MD /MODL /[id number]
--- NOTE | 2019-10-29 10:12 | NUR ---
{null, DR. GARCIA AND MARTHA AKERS, N.P. ON THE UNIT- INFORMED OF ONE RUN V-TACH FROM THE PATIENT NOTOIFIED BY MEDICAL LEAD. NO NEW ORDERS RECEIVED. }
[2019-10-29 13:19] VITALS: BP 120/72
--- NOTE | 2019-10-29 19:00 | NUR ---
{null, RECEIVED REPORT FROM [facility] NURSE. AAOX3. RESTING IN BED. L FLANK NEPHROSTOMY WITH NO ADVERSE SIGNS. L AC 20G INFUSING NS 75ML/HR. NO SIGNS OF INFILTRATION. BED LOCKED AND IN LOW POSITION. SR UPX2. CALL LIGHT WITHIN REACH. }
--- NOTE | 2019-10-29 19:17 | NUR ---
{null, PATIENT IS IN STABLE CONDITION WITH NO S/S OF RESPIRATORY DISTRESS. NO PAIN VOICED. TELEMETRY APPLIED. IV FLUIDS INFUSING. NEPHROSTOMY TUBE NOTED TO LEFT FLANK AREA- URINE NOTED. CALL LIGHT IS WITHIN REACH, PATIENT INSTRUCTED TO CALL FOR ASSISTANCE NEEDED. BEDSIDE SHIFT REPORT GIVEN TO ONCOMING NURSES. }
[2019-10-29 20:00] VITALS: BP 130/79
--- NOTE | 2019-10-29 21:17 | Progress Note ---
DATE: 10/29/2019 Medicine Progress Note SUBJECTIVE: The patient is doing well today with no complaints. No overnight events. White count still elevated. PHYSICAL EXAMINATION: VITAL SIGNS: Temperature is 99.6, pulse 75, respiratory rate 20, blood pressure 130/79, and pulse ox 100% on room air. GENERAL: Not in acute distress. Alert and oriented x3. Cooperative on examination. HEENT: Head; normocephalic, atraumatic. Eyes; pupils are equal, round, and reactive to light bilaterally. Extraocular movements intact bilaterally. Throat; no evidence of erythema or exudates in the posterior pharynx. Has poor dentition. NECK: Supple. Good range of motion. PULMONARY: Clear to auscultation bilaterally. No wheezing, no rales, no rhonchi, no crackles appreciated. CARDIOVASCULAR: Positive S1 and S2. No murmurs, rubs, or gallops appreciated. ABDOMEN: Soft, nondistended, and nontender to palpation. Bowel sounds present. MUSCULOSKELETAL: Strength is 5/5 throughout. No evidence of any muscle deficits on examination. No weakness appreciated. NEUROLOGIC: He is awake and oriented x3. SKIN: Intact. Warm to touch. Good cap refill. PSYCHIATRIC: Normal affect and mood. EXTREMITIES: No edema. Good range of motion throughout. LABORATORY FINDINGS: Show white count 19.9, hemoglobin 13, hematocrit is 38, platelets of 323. Chemistry; sodium 136, potassium 4, chloride 103, bicarb 27, anion gap of 10, BUN is 27, creatinine is 1.1. MICROBIOLOGY: Urine cultures positive for gram-negative bacilli. Blood cultures 1 of 2 is gram-negative; repeat blood cultures no growth to-date. IMAGING STUDIES: Nothing new. IMPRESSION: 1. Sepsis secondary to bacteremia/urinary tract infection. 2. A 7 mm obstructive ureteral stone with status post nephrostomy placed on 10/28/2019. 3. Hypotension - resolved. 4. Morbidly obese. PLAN: At this time, blood cultures 1 of 2 has gram-negative rods. Urine cultures were positive as well for gram-negative rods. Repeat blood cultures no growth to-date. Continue following with all cultures. Continue with IV antibiotics. ID is following. Urology note noted. I am not sure if he is the patient is in the process of getting the renal stone removed or that we could see during his hospital stay. His anticoagulation has been held due to nephrostomy tube, in which Cardiology has been consulted. Continue with antihypertensive medications. PT/OT evaluation. Consult with the above Urology, ID, and Cardiology. MD PARAS Bo/AVA /[id number]
[2019-10-29] MEDS: ATORVASTATIN 20 MG TAB PO SCH (21:25)
[2019-10-30] VITALS (7 sets, daily range): BP systolic 115–126; BP diastolic 58–77
[2019-10-30 05:33] LABS: HEMATOCRIT 33.6 % (38.2-49.6); HEMOGLOBIN 11.4 g/dL (14.0-18.0); LYMPHOCYTES # (AUTO) 1.3 (1.0-3.2); MEAN CORPUSCULAR HEMOGLOBIN 30.2 pg (28-32); MEAN CORPUSCULAR HGB CONC 33.9 g/dL (31-35); MEAN CORPUSCULAR VOLUME 88.9 fL (81-99); MONOCYTES # (AUTO) 0.8 (0.2-0.8); NEUTROPHILS # (AUTO) 6.8 (2.1-6.9); PLATELET COUNT 303 x10e3/uL (140-360); RED BLOOD COUNT 3.78 x10e6/uL (4.3-5.7); RED CELL DISTRIBUTION WIDTH 14.1 % (11.7-14.4)
[2019-10-30 06:01] LABS: ANION GAP 8.5 mmol/L (8-16); BLOOD UREA NITROGEN 22 mg/dL (7-26); BUN/CREATININE RATIO 24 (6-25); CALCIUM 8.1 mg/dL (8.4-10.2); CARBON DIOXIDE 25 mmol/L (22-29); CHLORIDE 105 mmol/L (98-107); CREATININE, SERUM 0.92 mg/dL (0.72-1.25); EST GLOMERULAR FILTRATION RATE > 60 ML/MIN (60-); GLUCOSE 123 mg/dL (74-118); POTASSIUM 3.5 mmol/L (3.5-5.1); SODIUM 135 mmol/L (136-145)
[2019-10-30] MEDS: MEROPENEM 500MG/ NS 50ML 50 ML IV SCH ×3 (06:30→17:32)
--- NOTE | 2019-10-30 07:00 | NUR ---
{null, [facility]. AAOX3. RESTING IN BED. NEPHROSTOMY EMPTIED AND DRAINING TO GRAVITY. L AC INFUSING MERROM AT 50ML/HR. NO SIGNS OF INFILTRATION. SR UPX2. BED LOCKED AND IN LOW POSITION. CALL LIGHT WITHIN REACH. }
--- NOTE | 2019-10-30 07:15 | NUR ---
{null, PATIENT IS IN STABLE CONDITION WITH NO S/S OF RESPIRATORY DISTRESS. PATIENT DENIES PAIN. TELEMETRY APPLIED. CALL LIGHT IS WITHIN REACH, PATIENT INSTRUCTED TO CALL FOR ASSISTANCE NEEDED. }
--- NOTE | 2019-10-30 07:16 | NUR ---
{null, NEPHROSTOMY DRAIN INTACT- DRESSING C/D/I. DRAINAGE NOTED. }
[2019-10-30 07:25] LABS: EOSINOPHILS % (MANUAL) 1 % (0-7); LYMPHOCYTES % (MANUAL) 9 % (19-48); MONOCYTES % (MANUAL) 9 % (3.4-9.0); NEUTROPHILS % (MANUAL) 81 % (40-74); PLATELET ESTIMATE ADEQUATE; PLATELET MORPHOLOGY COMMENT NORMAL; RBC MORPHOLOGY COMMENT NORMAL
[2019-10-30] MEDS: ASCORBIC ACID 500 MG TAB PO SCH (08:12)
[2019-10-30] MEDS: NIFEDIPINE CR 30 MG TAB PO SCH (08:13)
--- NOTE | 2019-10-30 09:49 | Progress Note ---
DATE: 10/30/2019 SUBJECTIVE: The patient is seen and evaluated. Currently comfortable in chair, in no acute distress. REVIEW OF SYSTEMS: No nausea. No vomiting. No fever. No chills. No chest pain. No shortness of breath. No dysuria. Left nephrostomy tube seems to be functional and no complaints of pain. PHYSICAL EXAMINATION: VITAL SIGNS: Temperature is 97.8, pulse 59, respirations 18, and blood pressure 121/77. GENERAL: Alert and oriented, comfortably in chair, morbidly obese. No acute distress. Left nephrostomy tube with return. CV: S1 and S2. CHEST: Equal expansion. Clear to auscultation. No acute distress. ABDOMEN: Soft, obese, nontender. Positive bowel sounds. HEENT: Moist. No pallor. No JVD. EXTREMITIES: Moves all with no significant edema. MEDICATIONS: Medication list reviewed and as far as Infectious Disease point of view, the patient is on meropenem. LABORATORY STUDIES: Hemoglobin 11.4, white blood cells 8.97 from 19.75, platelet 303. Sodium 135, potassium 3.5, creatinine 0.92 improved from 1.35. MICROBIOLOGY: Urine culture 10/26, showed ESBL E. coli, sensitive to Merrem. Blood culture showed E. coli, but not ESBL and it is sensitive to Merrem. Recheck blood culture on 10/27 is negative. Body fluid drainage from nephrostomy tube is negative for 2 days, which is collected on 10/27/2019. RADIOLOGY STUDIES: No new radiology studies available. ASSESSMENT AND PLAN: 1. This is a pleasant 64-year-old gentleman, who is alert and oriented without any acute distress with E. coli bacteremia. 2. Escherichia coli extended-spectrum beta-lactamases urinary tract infection. 3. Status post nephrostomy tube placement. 4. Left ureterolithiasis. 5. Left hydronephrosis. 6. Left renal stone. 7. Meatal stenosis. 8. Hypertension. 9. Chronic kidney disease. 10. Leukocytosis with significant improvement. 11. Morbid obesity. 12. Remains on Merrem. Clinically, in no acute distress. Await procedure, but he has been waiting to be afebrile for 24 hours. The patient has been afebrile since 10/28/2019 at 1800. Continue to monitor the patient clinically and follow with the labs. Discussed with Dr. Olvera in details. Please refer to chart for more information. Dictated by Osmar Abreu) DAVID Chaparro Reagan Olvera MD /MODL /[id number]
[2019-10-30] MEDS ORDERED: POTASSIUM CHLORIDE 20 MEQ TAB CR PO SCH (10:30)
--- NOTE | 2019-10-30 12:14 | Diagnostic Imaging Report ---
EXAMINATION: CHEST XRAY LINE PLACEMENT INDICATION: Line placement COMPARISON: Chest radiograph 10/27/2019 FINDINGS: LINES/TUBES:Interval placement of right PICC line which terminates in the superior vena cava. EKG leads overlie the chest. LUNGS:The lungs are moderately inflated. No focal consolidation or pulmonary edema. PLEURA:No pleural effusion or pneumothorax. MEDIASTINUM:Cardiomediastinal silhouette is stably enlarged. BONES/SOFT TISSUES:No acute osseous injury. Left shoulder hardware partially visualized. ABDOMEN:No free air under the diaphragm. IMPRESSION: Right PICC line terminates at the superior vena cava. Unchanged cardiomegaly. Signed by: Jose Woodard MD on 10/30/2019 12:10 PM
--- NOTE | 2019-10-30 17:16 | Consultation ---
DATE OF CONSULTATION: 10/28/2019 REASON FOR CONSULTATION: Atrial fibrillation. CHIEF COMPLAINT: Left-sided pain, fevers. HISTORY OF PRESENT ILLNESS: This is a 64-year-old male with history of atrial fibrillation, hypertension, hyperlipidemia, and also a gout. The patient presents to [facility] ER with complaints of fevers for several days and left flank pain. CT abdomen noted with obstructed left ureter, underwent emergent left nephrostomy tube placement. Cardiology was consulted secondary to the patient's history of atrial fibrillation. The patient is seen in room, reports several days of fevers and left-sided pain, underwent emergent urostomy placement after CT was showing obstructive left ureter with mild hydronephrosis. Currently, the patient denies any pain and he reports being comfortable at this time. Reports being on OAC therapy Eliquis. Last dose was Monday morning. PAST MEDICAL HISTORY: 1. Atrial fibrillation. 2. Hypertension. 3. Hyperlipidemia. 4. MICHAEL. 5. Gout. PAST SURGICAL HISTORY: Left shoulder rotator cuff and bilateral knee surgeries. SOCIAL HISTORY: He is . He is a truck driver helper. Positive for alcohol use. Positive for tobacco use, half a pack per day. FAMILY HISTORY: Mother at age 86, apparently was healthy. Father , history of CAD/hypertension. HOME MEDICATIONS: Lasix 40 mg daily, gabapentin 100 mg t.i.d., allopurinol 300 mg daily, aspirin 81 mg daily, enalapril 20 mg b.i.d., Lipitor 20 mg daily, Eliquis 5 mg b.i.d., spironolactone 25 mg daily, and vitamin D 5000 units weekly. ALLERGIES: CODEINE. REVIEW OF SYSTEMS: GENERAL: Positive for fevers, chills, fatigue, and weakness. SKIN: No rashes or bruises. HEENT: No nausea, vomiting, epistaxis, sore throat, or swollen neck. CARDIAC: Denies any chest pains or any palpitations. Positive for dyspnea on exertion. No orthopnea, PND, or lower extremity edema. RESPIRATORY: Denies any shortness of breath, any wheezing, coughing, or hemoptysis. GI: Reports good appetite. Denies any nausea, vomiting, diarrhea, constipation, any bloody or tarry stools. URINARY: Positive for dysuria. Positive for history of kidney stones. VASCULAR: Denies any lower extremity edema or claudication. MUSCULOSKELETAL: Reports good muscle strength. Positive for generalized joint pains, back pains. NEUROLOGIC: Denies tingling, tremors, weakness, paralysis, fainting, blackouts, or seizures. HEMATOLOGY: Denies easy bruising or anemia. ENDOCRINE: Denies any heat or cold intolerance, polyuria, polydipsia, or polyphagia. PHYSICAL EXAMINATION: VITAL SIGNS: Height 70 inches, weight 287 pounds. Temperature 97.8, pulse 59, respiratory rate 22, blood pressure 104/75, and pulse ox 99% on room air. GENERAL: Appears stated age, reliable informant. SKIN: No rashes or bruises noted. HEENT: Normocephalic. Pupils are equal, round, and reactive. Extraocular movements intact. Trachea midline. No JVD. No carotid bruits noted. HEART: Irregular rate and rhythm. No murmurs or clicks noted. ABDOMEN: Soft, nontender, and nondistended. Left flank nephrostomy tubes with hematuria. MUSCULOSKELETAL: Trace lower extremity edema. VASCULAR: +2 radial pulse bilaterally, +1 DP, PT pulses bilaterally. NEUROLOGIC: Cranial nerves 2 through 12 seem intact. LABORATORY DATA: White count 23, hemoglobin 12, hematocrit 35, and platelets 303. PT 20 and PTT 46. UA; positive for leukocyte esterase, positive for rbc's/white blood cells, and many urine bacteria. CT abdomen showing 0.7 cm obstructive calculus in the left ureter and mild left hydronephrosis. EKG showing atrial fibrillation with heart rate of 67. ASSESSMENT AND PLAN: 1. Obstructive left ureter with hydronephrosis. 2. Chronic atrial fibrillation. 3. Hypertension. 4. Hyperlipidemia. PLAN: The patient presents with left-sided pain, fevers, and chills noted with obstructive left ureter, status post left nephrostomy tube. Hold OAC therapy for anticipated procedures. Currently, the patient is off rate control therapy, heart rate in the 60s. We will continue to monitor. Continue telemonitoring. Further recommendations as clinical course progresses. Thank you very much for this consult. Seen and evaluated, agree with note Dictated by Michelet Doss NP Shaneka Chicas MD DC/MODL /[id number] ARA
[2019-10-30] MEDS: SODIUM CHLORIDE 0.9% 1000ML 1,000 ML IV SCH (18:15)
--- NOTE | 2019-10-30 19:43 | NUR ---
{null, PATIENT TRANSFERRED TO [place] [address] ROOM 287 FROM [facility] RM 198. PATIENT IS SITTING UP ON THE SIDE OF THE BED- IN STABLE CONDITION WITH NO S/S OF RESPIRATORY DISTRESS. NO PAIN VOICED. TELEMETRY APPLIED. CALL LIGHT IS WITHIN REACH, PATIENT INSTRUCTED TO CALL FOR ASSISTANCE NEEDED. BEDSIDE SHIFT REPORT GIVEN TO ONCOMING NURSES. }
--- NOTE | 2019-10-30 19:44 | NUR ---
{null, NEPHROSTOMY INTACT- DRESSING C/D/I. URINE OUTPUT NOTED. }
[2019-10-30] MEDS: ATORVASTATIN 20 MG TAB PO SCH (21:25)
--- NOTE | 2019-10-30 23:23 | Progress Note ---
DATE: 10/30/2019 Medicine Progress Note SUBJECTIVE: The patient is doing well, today with no complaints. White count improved. He is afebrile. Scheduled for cystoscopy and ureteral stent placement and possible nephrostomy tube removal on Monday of this week. Discussed with Urology. PHYSICAL EXAMINATION: VITAL SIGNS: Temperature is 98.6, pulse 76, respiratory rate 20, blood pressure 118/60, pulse ox 98% on room air. GENERAL: No acute distress. Alert and oriented x3. Cooperative on examination. HEENT: Head is normocephalic and atraumatic. Eyes; pupils are equal, round, and reactive to light bilaterally. Extraocular movements intact bilaterally. Throat; no evidence of erythema or exudates in the posterior pharynx. He has poor dentition. NECK: Supple. Good range of motion throughout. PULMONARY: Clear to auscultation bilaterally. No wheezing, rales, or rhonchi. No crackles appreciated. CARDIOVASCULAR: Positive S1, S2. No murmurs, rubs, or gallops appreciated. ABDOMEN: Soft, nondistended, and nontender to palpation. Bowel sounds present. MUSCULOSKELETAL: Strength is 5/5 throughout. No evidence of any muscle deficits on examination. No weakness appreciated. NEUROLOGIC: Cranial nerves II through XII grossly intact. No evidence of any neurological deficits on exam. SKIN: Intact. Warm to touch. LABORATORY DATA: CBC; white count 8.9, hemoglobin 11, hematocrit 34, platelets of 303. Chemistries reviewed, stable. MICROBIOLOGY: Shows urine culture ESBL E coli sensitive to Merrem. Blood culture shows E coli, but did not show ESBL. Blood culture repeat shows no growth today. IMPRESSION: 1. Sepsis secondary to bacteremia and urinary tract infection. 2. A 7 mm obstructive ureteral stone, status post nephrostomy placed on 10/28/2019. 3. Hypotension-resolved. 4. Morbidly obese. PLAN: At this time, he is scheduled for cystoscopy with ureteral stent placement on Monday by Urology. His urine culture ESBL E coli and in his blood culture 1 of 2 is just E coli, but no evidence of ESBL. We will continue with IV Merrem for now. I discussed with ID and they will determine the length of therapy. He does have a PICC line. I did discuss this with ID and Urology. Get a.m. labs. Consultants involved Urology, ID, and Cardiology. MD PARAS Bo/AVA /[id number]
[2019-10-31] VITALS (8 sets, daily range): BP systolic 114–129; BP diastolic 65–85
[2019-10-31] MEDS: MEROPENEM 500MG/ NS 50ML 50 ML IV SCH ×5 (00:38→23:26)
[2019-10-31] MEDS: SODIUM CHLORIDE 0.9% 1000ML 1,000 ML IV SCH ×2 (00:38→17:15)
--- NOTE | 2019-10-31 07:10 | NUR ---
{null, PATIENT IS IN STABLE CONDITION WITH NO S/S OF RESPIRATORY DISTRESS. PATIENT DENIES PAIN. TELEMETRY APPLIED. IV FLUIDS INFUSING. CALL LIGHT IS WITHIN REACH, PATIENT INSTRUCTED TO CALL FOR ASSISTANCE NEEDED. }
[2019-10-31] MEDS: NIFEDIPINE CR 30 MG TAB PO SCH (08:35)
--- NOTE | 2019-10-31 11:29 | Progress Note ---
DATE: 10/31/2019 SUBJECTIVE: The patient is seen and evaluated. Discussed with Dr. Olvera and spoke with Dr. Parker, Urology. REVIEW OF SYSTEMS: Comfortable in bed. No nausea, no vomiting, no fever, no chills. No chest pain. No shortness of breath. No pain. PHYSICAL EXAMINATION: VITAL SIGNS: Temperature 97.7, pulse is 52, respirations 18, and blood pressure 115/76. GENERAL: Alert, oriented, no acute distress. CV: S1 and S2. CHEST: Equal expansion. Clear to auscultation. No acute distress. ABDOMEN: Soft, obese, and nontender. HEENT: Moist. No pallor. No JVD. Left nephrostomy tube noted. MEDICATIONS: Medication list reviewed. As far as Infectious Disease point of view, the patient is on meropenem. LABORATORY STUDIES: White blood cells 8.97, hemoglobin 11.4, platelet 303. Sodium 135, potassium 3.5, creatinine 0.92. SEROLOGY: Influenza A and B antigen group A strep screen negative. MICROBIOLOGY: Recheck blood cultures negative. Previous blood culture was E coli. Urine culture was ESBL E coli. Recheck blood culture on 10/28/2019 is negative. Nephrostomy drainage cultures were negative for 3 days. IMAGING: No new radiology studies available, status post right upper extremity PICC line placement on 10/30/2019. ASSESSMENT AND PLAN: A 64-year-old gentleman with: 1. Escherichia coli bacteremia. 2. Extended spectrum beta-lactamases Escherichia coli urinary tract infection. 3. Status post left nephrostomy tube. 4. Left ureterolithiasis. 5. Left renal stone. 6. Left hydronephrosis. 7. Morbid obesity. 8. Chronic kidney disease. 9. Hypertension. 10. Leukocytosis, resolved. 11. Continue with meropenem, plan to take patient to OR by urologist and possible discharge planning tomorrow. The patient is status post PICC line placement. Continue to monitor patient clinically. We will follow with the labs. Discussed with Dr. Olvera in details. Please refer to chart for more information. Dictated by Osmar Chaparro PA-C (Al) Reagan Olvera MD /MODL /[id number]
--- NOTE | 2019-10-31 17:26 | NUR ---
{null, REPORT GIVEN TO RN WHO IS TAKING OVER CARE OF PATIENT AT THIS TIME. PATIENT IS IN STABLE CONDITION WITH NO S/S OF RESPIRATORY DISTRESS. NO PAIN INDICATED. TELEMETRY APPLIED. PATIENT IS AWARE HE WILL BE NPO AFTER MIDNIGHT AND WILL HAVE HIS PROCEDURE TOMORROW. LEFT NEPHROSTOMY INTACT AND DRAINING. CALL LIGHT IS WITHIN REACH, PATIENT INSTRUCTED TO CALL FOR ASSISTANCE NEEDED. }
--- NOTE | 2019-10-31 17:38 | NUR ---
{null, Received bedside shift report from previous RN from day shift. Patient is in stable condition. Call light within reach. Bed in the lowest position. }
--- NOTE | 2019-10-31 19:30 | NUR ---
{null, Bedside shift report given to oncoming nurse. Patient is resting in bed. No acute distress noted. Call light within reach. Bed in the lowest position. }
--- NOTE | 2019-10-31 19:50 | NUR ---
{null, Received change of shift report from AM nurse. Walking rounds completed. }
[2019-10-31] MEDS: ATORVASTATIN 20 MG TAB PO SCH (20:39)
--- NOTE | 2019-10-31 22:50 | Progress Note ---
DATE: 10/31/2019 Medicine Progress Note SUBJECTIVE: The patient is doing well today with no complaints. He is scheduled for cystoscopy and possible ureteral stent placement tomorrow by Urology. PHYSICAL EXAMINATION: VITAL SIGNS: Temperature is 98.3, pulse is 78, respiratory rate is 20, blood pressure 120/73, and pulse ox 100% on room air. GENERAL: Not in acute distress. Alert and oriented x3. Cooperative on examination. HEENT: Head; normocephalic, atraumatic. Eyes; pupils are equal, round, and reactive to light bilaterally. Extraocular movements intact bilaterally. Throat; no evidence of erythema or exudates in the posterior pharynx. Has poor dentition. NECK: Supple. Good range of motion. PULMONARY: Clear to auscultation bilaterally. No wheezing, no rales, no rhonchi, no crackles appreciated. CARDIOVASCULAR: Positive S1 and S2. No murmurs, rubs, or gallops appreciated. ABDOMEN: Soft, nondistended, and nontender to palpation. Bowel sounds present. MUSCULOSKELETAL: Strength is 5/5 throughout. No evidence of any muscle deficits on examination. No weakness appreciated. NEUROLOGIC: Cranial nerve II through XII grossly intact. No evidence of any neurological deficits on exam. SKIN: Intact. Warm to touch. Good cap refill. PSYCHIATRIC: Normal affect and mood. EXTREMITIES: No edema. Good range of motion throughout. LABORATORY FINDINGS: Show white count 8.9, hemoglobin 11, hematocrit is 34, platelets of 303. Chemistry; sodium 135, potassium 3.5, chloride 105, bicarb 25, anion gap of 8.5, BUN 23, creatinine 0.92. MICROBIOLOGY: Blood cultures; initial blood culture was E coli, but it was not ESBL, but the urine culture was ESBL E coli sensitive to Merrem. Repeat blood cultures, no growth to-date. IMAGING STUDIES: None. IMPRESSION: 1. Sepsis secondary to bacteremia, urinary tract infection. 2. A 7 mm obstructive ureteral stone, status post nephrostomy placed on 10/28/2019, scheduled for cystoscopy tomorrow. 3. Hypotension, resolved. 4. Morbidly obese. PLAN: At this time, cystoscopies scheduled for tomorrow, ureteral stent placement and possibly nephrostomy tube removal by Urology tomorrow. IV antibiotics will continue. Repeat blood cultures, no growth to-date. I am not sure of the length of antibiotics, which I discussed with the nurse outreach case manager, which they will talk with Infectious Disease. The patient will not be ready for discharge tomorrow and we will need to track for IV antibiotic therapy needed for discharge. Consultants involved Urology, ID, and Cardiology. He will also need to be restarted on his oral Eliquis for his underlying atrial fibrillation that he has as well, which we have held for several days due to procedures. MD PARAS Bo/MIKEL /[id number]
[2019-11-01] VITALS (9 sets, daily range): BP systolic 100–146; BP diastolic 64–93
[2019-11-01] MEDS: SODIUM CHLORIDE 0.9% 1000ML 1,000 ML IV SCH ×2 (01:05→15:18)
[2019-11-01] MEDS: MEROPENEM 500MG/ NS 50ML 50 ML IV SCH ×3 (04:58→18:17)
--- NOTE | 2019-11-01 05:29 | NUR ---
{null, Blood drawn from PICC line and flushed with 10cc of fluid. }
[2019-11-01 05:56] LABS: BASOPHILS % 0.4 % (0.0-1.0); EOSINOPHILS # (AUTO) 0.1 (0.0-0.4); EOSINOPHILS % 1.1 % (0.0-6.0); HEMATOCRIT 35.1 % (38.2-49.6); HEMOGLOBIN 11.9 g/dL (14.0-18.0); LYMPHOCYTES # (AUTO) 1.4 (1.0-3.2); LYMPHOCYTES % 17.3 % (18.0-39.1); MEAN CORPUSCULAR HEMOGLOBIN 30.4 pg (28-32); MEAN CORPUSCULAR HGB CONC 33.9 g/dL (31-35); MEAN CORPUSCULAR VOLUME 89.8 fL (81-99); MONOCYTES # (AUTO) 0.7 (0.2-0.8); MONOCYTES % 9.1 % (4.4-11.3); NEUTROPHILS # (AUTO) 5.8 (2.1-6.9); NEUTROPHILS % 71.6 % (38.7-80.0); PLATELET COUNT 309 x10e3/uL (140-360); RED BLOOD COUNT 3.91 x10e6/uL (4.3-5.7); RED CELL DISTRIBUTION WIDTH 13.8 % (11.7-14.4)
[2019-11-01 06:15] LABS: BLOOD UREA NITROGEN 14 mg/dL (7-26); BUN/CREATININE RATIO 19 (6-25); CALCIUM 8.5 mg/dL (8.4-10.2); CARBON DIOXIDE 27 mmol/L (22-29); CHLORIDE 107 mmol/L (98-107); CREATININE, SERUM 0.75 mg/dL (0.72-1.25); EST GLOMERULAR FILTRATION RATE > 60 ML/MIN (60-); GLUCOSE 93 mg/dL (74-118); SODIUM 138 mmol/L (136-145)
[2019-11-01] MEDS: NIFEDIPINE CR 30 MG TAB PO SCH (09:09)
--- NOTE | 2019-11-01 11:24 | NUR ---
{null, PT OFF UNIT TO OR AT THIS TIME. }
[2019-11-01] MEDS ORDERED: IOPAMIDOL 300MG/ML 50ML INFUS..BTL IV ONE (12:27)
[2019-11-01] MEDS ORDERED: B&O 60MG R/S 60 MG SUPP PR ONE (12:27)
--- NOTE | 2019-11-01 14:07 | NUR ---
{null, CALL RECEIVED FROM ERIN GREENWOOD DTR OF THE PT INQUIRING ABOUT GETTING ABX SET UP FOR HER FATHER. STATES HER PARENTS ARE ETHIOPIAN SPEAKING. STATES HER FATHER'S PART D PLAN IS [facility] [employer] AND HE HAS [facility]. CHOICE PROVIDED. STATES [facility] OK; ALSO [facility] ON THE LIST AND OK TO USE IF NEEDED. VERBAL CHOICE GIVEN. FAXED REFERRAL TO [facility] @ 0FF: [phone] / FAX: [phone]. VALERIANO / MICHAEL NOTIFIED. DR. KIRKLAND CALLED TO CONFIRM ABX BEING ARRANGED. PLAN TO DC HOME TODAY. }
[2019-11-01] MEDS ORDERED: TRAMADOL HCL 50 MG TAB PO PRN (14:15)
--- NOTE | 2019-11-01 15:39 | NUR ---
{null, RECEIVED CALL BACK FROM VALERIANO HARDY. STATES THEY ARE NOT IN NETWORK W [facility]. REFERRAL FAXED TO [facility] @ [phone] / [phone]. CONTACT OSIRIS Turcios @ [phone] }
[2019-11-01] MEDS ORDERED: MIDAZOLAM HCL 2 MG/2 ML VIAL ONE (16:16)
[2019-11-01] MEDS ORDERED: FENTANYL CITRATE/PF 100MCG/2 ML INJ ONE (16:16)
[2019-11-01] MEDS: PHENAZOPYRIDINE HCL 100 MG TAB PO SCH (18:17)
[2019-11-01] MEDS ORDERED: ONDANSETRON HCL 4 MG ORAL DISINTEGRATING TAB PO PRN (19:45)
[2019-11-01] MEDS ORDERED: LIDOCAINE HCL 2% LOCAL INJ 5 ML SDV VIAL INJ ONE (19:49)
[2019-11-01] MEDS ORDERED: DEXAMETHASONE SOD PHOS INJ 4 MG/ML VIAL ONE (19:49)
[2019-11-01] MEDS ORDERED: PROPOFOL IV EMULSION 10 MG/ML 20 ML VIAL ONE (19:49)
[2019-11-01] MEDS ORDERED: ONDANSETRON HCL INJ 2MG/ML 2ML 2 MG/ML VIAL ONE (19:49)
[2019-11-01] MEDS ORDERED: SEVOFLURANE INHAL SOLN 250 ML PEN BTL ONE (19:49)
[2019-11-01] MEDS: ATORVASTATIN 20 MG TAB PO SCH (21:06)
--- NOTE | 2019-11-01 23:04 | Progress Note ---
DATE: 11/01/2019 Medicine Progress Note SUBJECTIVE: The patient is doing well today. He was undergoing cystoscopies with the nephrostomy tube removal. PHYSICAL EXAMINATION: VITAL SIGNS: Temperature is 97.7 pulse 70, respiratory rate 18, blood pressure 128/90, pulse ox 100% on room air. GENERAL: Not in acute distress. Alert and oriented x3. Cooperative on examination. HEENT: Head; normocephalic, atraumatic. Eyes; pupils are equal, round, and reactive to light bilaterally. Extraocular movements intact bilaterally. Throat; no evidence of erythema or exudates in the posterior pharynx. Has poor dentition. NECK: Supple. Good range of motion. PULMONARY: Clear to auscultation bilaterally. No wheezing, no rales, no rhonchi, no crackles appreciated. CARDIOVASCULAR: Positive S1 and S2. No murmurs, rubs, or gallops appreciated. ABDOMEN: Soft, nondistended, and nontender to palpation. Bowel sounds present. MUSCULOSKELETAL: Strength is 5/5 throughout. No evidence of any muscle deficits on examination. No weakness appreciated. NEUROLOGIC: Cranial nerve II through XII grossly intact. No evidence of any neurological deficits on exam. SKIN: Intact. Warm to touch. Good cap refill. PSYCHIATRIC: Normal affect and mood. EXTREMITIES: No edema. Good range of motion throughout. LABORATORY DATA: Labs show white count of 8, hemoglobin 11.8, hematocrit 35, platelets of 309. Chemistry; sodium 138, potassium 4, chloride 107, bicarb 27, anion gap of 8, BUN 14, creatinine 0.75, and calcium is 8.5. Blood cultures repeat no growth. Gram stain body fluid, no growth. Initial blood culture was E coli and urine culture was ESBL E coli. IMAGING STUDIES: Nothing new. IMPRESSION: 1. Left ureteral nephrolithiasis stone status post cystoscopy with laser and left stent placement with left nephrostomy tube removal performed on 11/01/2019. 2. Sepsis secondary to bacteremia and ESBL E coli urinary tract infection. 3. Hypotension, resolved. 4. Morbidly obese. PLAN: At this time, he had procedure performed today and he went well with no issues. IV antibiotics has been ordered for 3 total weeks of Merrem 500 mg IV q.8 hours in which I discussed this with ID and that was his recommendations. I discussed this also with case management that if this can be arranged, he could be discharged to home possibly tomorrow. If he cannot afford these medications, he can be discharged to a custodial facility. I will leave that choice up to the patient. Otherwise, everything has been ordered. We are going to resume all medications including his anticoagulation as well as his oral atrial fibrillation medications. Consultants involved; Urology, ID and Cardiology. We will continue same plan of care and monitor very closely. MD PARAS Bo/MODL /[id number]
[2019-11-02] VITALS: BP 118/68
[2019-11-02] MEDS: MEROPENEM 500MG/ NS 50ML 50 ML IV SCH ×3 (00:03→13:34)
[2019-11-02] MEDS: SODIUM CHLORIDE 0.9% 1000ML 1,000 ML IV SCH (00:03)
[2019-11-02 04:00] VITALS: BP 104/73
[2019-11-02 06:48] LABS: ANION GAP 11.3 mmol/L (8-16); BLOOD UREA NITROGEN 20 mg/dL (7-26); BUN/CREATININE RATIO 27 (6-25); CALCIUM 8.4 mg/dL (8.4-10.2); CARBON DIOXIDE 25 mmol/L (22-29); CHLORIDE 106 mmol/L (98-107); CREATININE, SERUM 0.74 mg/dL (0.72-1.25); EST GLOMERULAR FILTRATION RATE > 60 ML/MIN (60-); GLUCOSE 98 mg/dL (74-118); POTASSIUM 4.3 mmol/L (3.5-5.1); SODIUM 138 mmol/L (136-145)
--- NOTE | 2019-11-02 07:09 | NUR ---
{null, report given to morning nurse. bedside shift report complete. patient is resting in bed. bed is in lowest position and call light is within reach. }
[2019-11-02 08:12] VITALS: BP 134/79
[2019-11-02] MEDS: NIFEDIPINE CR 30 MG TAB PO SCH (08:32)
[2019-11-02] MEDS: PHENAZOPYRIDINE HCL 100 MG TAB PO SCH ×2 (08:32→13:34)
[2019-11-02 08:34] VITALS: BP 134/79
[2019-11-02 12:02] VITALS: BP 129/75
--- NOTE | 2019-11-02 13:10 | NUR ---
{null, LUISANA called and spoke with Elyssa at [facility]. States they have talked to pt's and she has accepted copay. They are mixing medications and will be ready to deliver today. Will contact pt's family for delivery. States home health is with [facility] [phone]. LUISANA called pt's daughter Joan [phone]. She states her mom spoke with someone yesterday and that person is supposed to come out to provide teaching on IV abx when pt discharges. Gave number for Kandy Monge [phone]. LUISANA called Ms. Monge, who states she's with [facility]. States she can come out to see pt today, but if he discharges too late, then she will see him first thing tomorrow morning. Pt's knows to call her when pt discharges. LUISANA called pt's daughter Joan back and updated her. Addendum: 11/02/19 at 1320 by Tana Borja CM ALLA Choi was also updated. }
--- NOTE | 2019-11-02 13:29 | NUR ---
{null, INFECTIOUS DISEASE PROGRESS NOTE SUBJECTIVE: The patient is doing well today. ROS: Doing well All 14 point ROS is negative unless otherwise indicated. PHYSICAL EXAMINATION: VITAL SIGNS: 97, 104/73, 59, 17 GENERAL: Not in acute distress. Alert and oriented x3. Cooperative on examination. HEENT: Head; normocephalic, atraumatic. Eyes; pupils are equal, round, and reactive to light bilaterally. Extraocular movements intact bilaterally. Throat; no evidence of erythema or exudates in the posterior pharynx. Has poor dentition. NECK: Supple. Good range of motion. PULMONARY: Clear to auscultation bilaterally. No wheezing, no rales, no rhonchi, no crackles appreciated. CARDIOVASCULAR: Positive S1 and S2. No murmurs, rubs, or gallops appreciated. ABDOMEN: Soft, nondistended, and nontender to palpation. Bowel sounds present. MUSCULOSKELETAL: Strength is 5/5 throughout. No evidence of any muscle deficits on examination. No weakness appreciated. NEUROLOGIC: Cranial nerve II through XII grossly intact. No evidence of any neurological deficits on exam. SKIN: Intact. Warm to touch. Good cap refill. PSYCHIATRIC: Normal affect and mood. EXTREMITIES: No edema. Good range of motion throughout. LABORATORY DATA: Reviewed, leukocytosis resolved IMAGING STUDIES: Nothing new. IMPRESSION: 1. Left ureteral nephrolithiasis stone status post cystoscopy with laser and left stent placement with left nephrostomy tube removal performed on 11/01/2019. 2. Sepsis secondary to bacteremia and ESBL E coli urinary tract infection. 3. Hypotension, resolved. 4. Morbidly obese. PLAN: 11/02/19 Patient set up with [facility] with [facility]. I spoke with the daughter and patient at length. They verbalized understanding of management of the PICC line and IV ABT. The patient will follow up with me in the office in 10-14 days. Okay to discharge. }
[2019-11-02] MEDS ORDERED: ULTRAM50 MG PO (14:28)
[2019-11-02] MEDS ORDERED: FLOMAX0.4 MG PO (14:29)
--- NOTE | 2019-11-02 14:53 | NUR ---
{null, patient discharged home, dressing changed, PICC line is intact, per Case mgmnt the Home IV antibiotic and HH is already arranged, patient denies any pain , no distress noted }
--- NOTE | 2019-11-02 16:56 | Discharge Summary ---
FINAL DISCHARGE DIAGNOSES: 1. Sepsis with underlying Escherichia coli bacteremia and extended-spectrum beta-lactamases Escherichia coli urinary tract infection. 2. Left ureteral nephrolithiasis, stone status post cystoscopy with laser and left stent placement with status post nephrostomy tube insertion and removal on 11/01/2019. 3. Hypotension-resolved. 4. Morbidly obese. CONSULTANTS: Urology and Infectious Disease. PHYSICAL EXAMINATION: VITAL SIGNS: Temperature is 97.6, pulse 83, respiratory rate is 18, blood pressure 129/75, and pulse ox 100% on room air. LABORATORY FINDINGS: Show white count 8, hemoglobin 11.9, hematocrit is 35, and platelets of 309. Coagulation; PT 20, INR 1.62, and PTT 46. Chemistry; sodium 138, potassium 4.3, chloride 106, bicarb 25, anion gap of 11, BUN is 20, creatinine 0.74, glucose is 98, and calcium is 8.4. Troponins are negative. Albumin was 2.3. TSH was 1.073. Urinalysis noted. Throat cultures were negative. Urine cultures, ESBL E. coli. Blood culture, one was E. coli, not ESBL. Repeat blood culture showed no growth. Body fluid collection fluid, no growth. IMAGING STUDIES: Chest x-ray shows cardiomegaly without any pulmonary edema. Abdomen CT and pelvis shows a 0.7 cm obstructing calculus in the distal left ureter resulting in mild left hydroureteronephrosis with possible superimposed infection with pyelonephritis. Cholelithiasis. No evidence of any cholecystitis or biliary dilatation. Repeat CT abdomen and pelvis shows placement of the percutaneous nephrostomy persistent left distal ureteral stone noted. HOSPITAL COURSE: This is a 64-year-old male, comes into the ED with complaints of left-sided flank pain, nausea, vomiting, fever and was treated for underlying sepsis. The patient was found to have sepsis, ESBL E. coli UTI as well as E. coli bacteremia. Imaging studies consistent with a 7 mm nephrolithiasis in the ureter prompting Urology and ID consultation. The patient underwent left-sided nephrostomy tube initially with decompression. The patient maintained on broad-spectrum IV antibiotic therapy. Microbiology showed ESBL E. coli UTI as well as E. coli bacteremia. Repeat cultures were found to be negative. The patient maintained on IV Merrem. The patient underwent cystoscopy on 11/01/2019 by Urology, in which he had status post cystoscopy with laser and left ureteral stent placement with removal of the left nephrostomy tube. The patient did well post procedure early. Home health was arranged with IV antibiotics for Merrem 500 mg IV q.8 hours x3 weeks. This was arranged prior to being discharged to home. Case management was involved. The patient received antibiotics prior to being discharged. I discussed this plan of care with the patient and the patient's daughter by phone prior to being discharged and they verbalized understanding. The patient has been cleared for discharge by all consultants. On the day of discharge, vital signs were stable, labs reviewed and stable. The patient is seen and evaluated and examined thoroughly on the day of discharge. No other complaints. The patient verbalized understanding and agrees to plan of care to follow up accordingly as an outpatient with the primary care physician in 1 week and the urologist and ID in 2 weeks' time. The patient is to continue with the same medications that he takes at home except we discontinued his home Cipro and Bactrim and he will continue with IV Merrem. He verbalized understanding and agrees to plan of care. MEDICATIONS: See medication reconciliation form. DISPOSITION: Home. CONDITION: Stable. DIET: Heart healthy. In the event of worsening symptoms, the patient was advised to come back to the ED for further evaluation. Discharge summary took greater than 35 minutes. MD PARAS Bo/MODL /[id number]
--- NOTE | 2019-11-02 21:23 | Operative Report ---
DATE OF PROCEDURE: 11/01/2019 SURGEON: Servando Parker MD PREOPERATIVE DIAGNOSES: 1. Left nephrostomy tube. 2. Left ureterolithiasis. 3. Urinary tract infection. POSTOPERATIVE DIAGNOSES: 1. Left nephrostomy tube. 2. Left ureterolithiasis. 3. Urinary tract infection. 4. Urethral stricture disease. OPERATIONS PERFORMED: 1. Cystourethroscopy with calibration and dilation of urethral stricture (separate procedure performed for the fossa navicularis stricture). 2. Cystourethroscopy with right ureteral catheterization and retrograde ureteropyelography (separate procedure performed for the urinary tract infections). 3. Left ureteroscopy with holmium laser lithotripsy, extraction of stones and placement of stent (separate procedure performed for left ureterolithiasis). 4. Radiological services for supervision and interpretation of ureteroscopy. 5. Removal of left nephrostomy. 6. Urological Services for supervision of left nephrostomy removal. ANESTHESIA: General. COMPLICATIONS: None. CLINICAL SUMMARY: Please refer to consultation dictation for this hospitalization. This procedures done during the - emerging due to the fact the patient had urosepsis. He has a nephrostomy. We do not want sent home with nephrostomy due to the increased risk of infection with a tube sticking into his collecting system as well as dislodging. We are performing this procedure now that his infection has been treated with culture specific antibiotics. He has been hemodynamically stable. OPERATIVE PROCEDURE IN DETAIL: Informed consent was verified. Lev Stallings was properly identified, taken to the operating room, and placed on the cystoscopy table in supine position. Anesthesia was uneventfully begun. The patient was then carefully and gently repositioned in a dorsal lithotomy position. All pressure points were well padded. His genitalia were prepared and draped in usual sterile fashion. 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 Urethra was otherwise, unremarkable. We went through the normal sphincteric region, went through the prostate bed, which was significant for visual obstructing BPH into the patient's bladder. Panendoscopy revealed no suspicious mucosal lesions, no tumors, no stones, grade 1 to 2 trabeculations were noted. A ureteral catheter was used to cannulate the right ureter and retrograde ureteropyelograms were performed. Ureteral catheter was then placed into the left ureter and retrograde pyelograms were performed. A guidewire was then placed into the left ureter. A semi-rigid ureteroscope was then placed alongside the guidewire, guided into the patient's ureter, where we identified the stone. Holmium laser lithotripsy was utilized to fragment the stone. We extracted the stone with a basket and then with cystoscopic fluoroscopic guidance, a left-sided indwelling ureteral stent was then placed, it was coiled in the patient's kidney as well as the patient's bladder. The retaining suture was left long. A nephrostomy tube suture was removed. We then divided the nephrostomy tube and then were able to extract the nephrostomy tube without any difficulty. The bladder was drained and belladonna opium suppository was placed revealing a 45 g prostate, that is smooth, non-fluctuant without any nodules. Interpretation of retrograde ureteropyelography contrast was instilled in retrograde fashion bilaterally. The right side was unremarkable. There were no tumors, no stones, no diverticula. Unobstructed drainage was observed fluoroscopically. Left side exhibited a large stone, that was present 3 to 4 cm proximal to the ureteral orifice. There was ureterectasis proximal to that. The new stent was in good position, coiled the patient's kidney as well as the patient's bladder. The nephrostomy tube removal was performed under fluoroscopic guidance and it was uneventful. There was no dislodgement of stent from the procedure. PLANS: Plans will be to have the patient discharged on culture specific antibiotics per the Infectious Diseases service. We will plan on returning the patient to the operating room in several weeks to remove his stent and evaluate for any residual stone fragments. We discussed this with the patient's daughter immediately postoperatively; she understands and that the patient has a temporary indwelling ureteral stent, requires followup and removal. Servando Parker MD [place]/[facility] /[id number] cc: Xavier Arias Jr, MD
[2019-11-29] MEDS ORDERED: KEFLEX500 MG PO (12:32)
[2019-11-29] MEDS ORDERED: SPIRONOLACTONE25 MG PO (12:33)
[2019-11-29] MEDS ORDERED: GABAPENTIN100 MG PO (12:33)
[2019-11-29] MEDS ORDERED: ALLOPURINOL100 MG PO (12:33)
== END 2019-11-02 14:50 | disposition home or self-care (01) | DRG 854 ==
LOC: ER 13:37 → ERHOLD 15:30 → IMCU 17:06 → OBSVTOIN 10-28 11:15 → MED/SURG3 10-30 17:44
PROVIDERS: ADMIT Internal Medicine; ATTEND Internal Medicine
PROC: 0T9130Z Drainage of Left Kidney with Drainage Device, Percutaneous Approach (ICD-10-PCS; 2019-10-28)
PROC: 02HV33Z Insertion of Infusion Device into Superior Vena Cava, Percutaneous Approach (ICD-10-PCS; 2019-10-28)
PROC: 0T768ZZ Dilation of Right Ureter, Via Natural or Artificial Opening Endoscopic (ICD-10-PCS; 2019-11-01)
PROC: 0T7D8ZZ Dilation of Urethra, Via Natural or Artificial Opening Endoscopic (ICD-10-PCS; 2019-11-01)
PROC: BT141ZZ Fluoroscopy of Kidneys, Ureters and Bladder using Low Osmolar Contrast (ICD-10-PCS; 2019-11-01)
PROC: 0TC78ZZ Extirpation of Matter from Left Ureter, Via Natural or Artificial Opening Endoscopic (ICD-10-PCS; principal; 2019-11-01 12:26)
PROC: 0T778DZ Dilation of Left Ureter with Intraluminal Device, Via Natural or Artificial Opening Endoscopic (ICD-10-PCS; 2019-11-01 12:26)
DX: A41.51 Sepsis due to Escherichia coli [E. coli] (principal); Z68.41 Body mass index [BMI] 40.0-44.9, adult; N20.2 Calculus of kidney with calculus of ureter; Z16.12 Extended spectrum beta lactamase (ESBL) resistance; N13.6 Pyonephrosis; E87.1 Hypo-osmolality and hyponatremia; I48.20 Chronic atrial fibrillation, unspecified; N17.8 Other acute kidney failure; I95.9 Hypotension, unspecified; E66.01 Morbid (severe) obesity due to excess calories; E78.00 Pure hypercholesterolemia, unspecified; E88.89 Other specified metabolic disorders; N35.919 Unspecified urethral stricture, male, unspecified site; M10.9 Gout, unspecified; G47.33 Obstructive sleep apnea (adult) (pediatric); Z79.01 Long term (current) use of anticoagulants; K80.80 Other cholelithiasis without obstruction
CPT/HCPCS: 36415; 36569; 50430; 71045; 74176; 74177; 74420; 74470; 76942; 80048; 80053; 81001; 82550; 82553; 83518; 83605; 83690; 83880; 84443; 84484; 85007; 85025; 85027; 85610; 85730; 87040; 87070; 87071; 87086; 87186; 87205; 87400; 88300; 93005; 93306; 96361; 99284; C1758; C1769; C2617; G0378; J1100; J1940; J2001; J2250; J2270; J2405; J3010; J7030; J7050; Q9967

== ENCOUNTER → 2019-11-22 | Outpatient (CLI) | payer MEDICARE ==
[~2019-11-22] MED LIST changes: +FLOMAX0.4 MG PO; +ULTRAM50 MG PO
--- NOTE | 2019-11-22 14:58 | Diagnostic Imaging Report ---
Exam: KUB - 2 views Indication: Renal calculus Comparison: Abdomen and pelvis ultrasound of 10/28/2019 Findings: Interval placement of left internal nephroureteral stent. No radiographically apparent urinary calculi. Cholelithiasis. Nonobstructive bowel gas pattern. No free air. No acute osseous injury. Impression: Left internal nephroureteral stent in place. No radiographically apparent urinary calculi. Cholelithiasis. Signed by: Jose Woodard MD on 11/22/2019 2:54 PM
== END ==
LOC: RAD 10:04
PROVIDERS: ATTEND Urology
DX: N20.0 Calculus of kidney (principal)
CPT/HCPCS: 74018

== ENCOUNTER → 2019-12-04 | Day surgery (SDC) | payer MEDICARE, OTHER ==
[2019-11-29 11:57] LABS: BASOPHILS # (AUTO) 0.1 (0.0-0.1); EOSINOPHILS # (AUTO) 0.1 (0.0-0.4); EOSINOPHILS % 1.9 % (0.0-6.0); HEMATOCRIT 40.1 % (38.2-49.6); HEMOGLOBIN 13.3 g/dL (14.0-18.0); LYMPHOCYTES # (AUTO) 2.1 (1.0-3.2); LYMPHOCYTES % 30.7 % (18.0-39.1); MEAN CORPUSCULAR HEMOGLOBIN 30.3 pg (28-32); MEAN CORPUSCULAR HGB CONC 33.2 g/dL (31-35); MEAN CORPUSCULAR VOLUME 91.3 fL (81-99); MONOCYTES # (AUTO) 0.8 (0.2-0.8); MONOCYTES % 12.1 % (4.4-11.3); NEUTROPHILS # (AUTO) 3.6 (2.1-6.9); NEUTROPHILS % 53.9 % (38.7-80.0); PLATELET COUNT 165 x10e3/uL (140-360); RED BLOOD COUNT 4.39 x10e6/uL (4.3-5.7)
[2019-11-29 12:28] LABS: ANION GAP 14.3 mmol/L (8-16); BLOOD UREA NITROGEN 12 mg/dL (7-26); BUN/CREATININE RATIO 12 (6-25); CALCIUM 9.4 mg/dL (8.4-10.2); CARBON DIOXIDE 22 mmol/L (22-29); CHLORIDE 106 mmol/L (98-107); CREATININE, SERUM 0.97 mg/dL (0.72-1.25); EST GLOMERULAR FILTRATION RATE > 60 ML/MIN (60-); GLUCOSE 141 mg/dL (74-118); POTASSIUM 4.3 mmol/L (3.5-5.1); SODIUM 138 mmol/L (136-145)
--- NOTE | 2019-11-29 12:57 | Diagnostic Imaging Report ---
Exam: Chest 2 views Comparison: October 30, 2019 Clinical history: There is mild to moderate cardiomegaly. There is no evidence of: Consolidation, pleural effusion, or pneumothorax. The regional osseous structures appear unchanged. Impression: 1. Cardiomegaly, no significant interval changes. Signed by: Dr. Robbie Christiansen MD on 11/29/2019 12:54 PM
[~2019-12-04] MED LIST changes: +ALLOPURINOL100 MG PO; +B&O 60MG R/S 60 MG SUPP PR ONE; +CEFTRIAXONE SOD 1 GM/NS 50 ML 50 ML IV ONE; +DEXAMETHASONE SOD PHOS INJ 4 MG/ML VIAL ONE; +GABAPENTIN100 MG PO; +IOPAMIDOL 300MG/ML 50ML INFUS..BTL IV ONE; +KEFLEX500 MG PO; +LIDOCAINE HCL 2% LOCAL INJ 5 ML SDV VIAL INJ ONE; +ONDANSETRON HCL INJ 2MG/ML 2ML 2 MG/ML VIAL ONE; +PROPOFOL IV EMULSION 10 MG/ML 20 ML VIAL ONE; +SEVOFLURANE INHAL SOLN 250 ML PEN BTL ONE; +SPIRONOLACTONE25 MG PO
[2019-12-04 12:40] VITALS: BP 126/89
--- NOTE | 2019-12-05 04:07 | Operative Report ---
DATE OF PROCEDURE: 12/04/2019 SURGEON: Servando Parker MD PREOPERATIVE DIAGNOSES: 1. Left urolithiasis. 2. Left indwelling ureteral stent. POSTOPERATIVE DIAGNOSES: 1. Left urolithiasis. 2. Left indwelling ureteral stent. OPERATIONS PERFORMED: 1. Cystourethroscopy with complicated removal of left indwelling ureteral stent (separate procedure performed for the diagnosis of stent). 2. Left ureteroscopy with stone manipulation and extraction (separate procedure performed for the nephrolithiasis). 3. Urological Services with supervision and interpretation of ureteroscopy. 4. Interpretation of retrograde ureteropyelography, no radiologist present. ANESTHESIA: General. COMPLICATIONS: None. CLINICAL SUMMARY: Lev Buckley is a 64-year-old man with the above preoperative diagnoses. He is brought for the above procedures. He is aware of the risks of bleeding, infection, injury to adjacent structures, need for additional procedures and elected to proceed. OPERATIVE PROCEDURE IN DETAIL: Informed consent was verified. Lev Buckley was properly identified and taken to the operating room, placed on the cystoscopy table in supine position. Anesthesia was uneventfully begun. The patient was then carefully and gently repositioned in the dorsal lithotomy position with all pressure points well padded. His genitalia were prepared and draped in usual sterile fashion. The cystoscope sheath with a visual obturator in place was atraumatically inserted into the patient's urethra. The patient's urethra was significant for some blanching and wide caliber bands consistent with panurethral stricture disease that is not clinically significant. We went through the normal sphincteric region through the prostate bed, which was significant for visually obstructing BPH. We then entered the patient's bladder. Panendoscopy revealed some grade 1 trabeculations, but no tumors, no stones, no diverticula. A stent was noted to be emerging in the left ureteral orifice was mildly encrusted. A guidewire was then placed alongside the stent and guided to the level of the patient's kidney. The stent was then grasped completely, removed and discarded. A semi-rigid ureteroscope was then inserted alongside the guidewire and guided into the distal left ureter. Contrast was injected. No tumors, no stones, no strictures, no diverticula were identified. Flexible ureteroscope was then placed over the guidewire and guided to the level of the patient's kidney. 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 A small fragment was grasped with Nitinol tipless basket and extracted atraumatically. Thus, re-examining the ureter, which was unremarkable. Interpretation of retrograde ureteropyelography contrast was instilled in a retrograde fashion bilaterally. There were no tumors and no stones, no diverticula on the left hand side exhibited, unobstructed drainage and minimal fullness. The patient's bladder was drained. Cystoscope withdrawn. Belladonna and opium suppository were placed revealing a 45 g prostate, smooth, nonfluctuant without any nodules. The patient was then uneventfully reversed from anesthesia and taken to recovery room in stable condition. There were no complications to the procedure. He tolerated the procedure well. Explicit postop instructions were given and we will follow the patient up in the office. Upon followup appointment, uroflowmetry and bladder ultrasonography should be performed. Servando MD Elena [place]/[facility] /[id number] cc: Xavier Arias Jr, MD
== END | disposition home or self-care (01) ==
LOC: OR 09:06
PROVIDERS: ATTEND Urology
DX: N20.1 Calculus of ureter (principal); Z46.6 Encounter for fitting and adjustment of urinary device; N40.0 Benign prostatic hyperplasia without lower urinary tract symptoms; N28.89 Other specified disorders of kidney and ureter; N13.8 Other obstructive and reflux uropathy; N39.0 Urinary tract infection, site not specified; N13.30 Unspecified hydronephrosis; N32.89 Other specified disorders of bladder; G47.33 Obstructive sleep apnea (adult) (pediatric); I25.10 Atherosclerotic heart disease of native coronary artery without angina pectoris; I10 Essential (primary) hypertension; E78.5 Hyperlipidemia, unspecified; I48.91 Unspecified atrial fibrillation; E66.01 Morbid (severe) obesity due to excess calories; F17.210 Nicotine dependence, cigarettes, uncomplicated; Z88.6 Allergy status to analgesic agent; Z01.810 Encounter for preprocedural cardiovascular examination; Z01.812 Encounter for preprocedural laboratory examination; Z01.818 Encounter for other preprocedural examination; Z11.59 Encounter for screening for other viral diseases; Z79.02 Long term (current) use of antithrombotics/antiplatelets; Z79.82 Long term (current) use of aspirin; Z68.41 Body mass index [BMI] 40.0-44.9, adult
CPT/HCPCS: 36415; 52352; 71046; 74420; 80048; 85025; 87635; 88300; 93005; C1769; J0696; J1100; J2001; J2405; J2704; Q9967

== ENCOUNTER 2020-09-06 22:18 | Inpatient (IN) | payer MEDICARE ==
[~2020-09-06] VITALS: Ht 177.8 cm; Wt 142.9 kg
[~2020-09-06 22:18] MED LIST changes: -B&O 60MG R/S 60 MG SUPP PR ONE; -CEFTRIAXONE SOD 1 GM/NS 50 ML 50 ML IV ONE; -DEXAMETHASONE SOD PHOS INJ 4 MG/ML VIAL ONE; -IOPAMIDOL 300MG/ML 50ML INFUS..BTL IV ONE; -LIDOCAINE HCL 2% LOCAL INJ 5 ML SDV VIAL INJ ONE; -ONDANSETRON HCL INJ 2MG/ML 2ML 2 MG/ML VIAL ONE; -PROPOFOL IV EMULSION 10 MG/ML 20 ML VIAL ONE; -SEVOFLURANE INHAL SOLN 250 ML PEN BTL ONE
[2020-09-06] MEDS ORDERED: ACETAMINOPHEN 325 MG TAB PO ONE (22:30)
[2020-09-06] MEDS ORDERED: PIPERACILLIN/TAZOBAC 3.375 GM in DEXTROSE 5% 50ML 50 ML IV ONE (22:30)
[2020-09-06] MEDS ORDERED: SODIUM CHLORIDE 0.9% 1000ML 1,000 ML IV ONE (22:45)
[2020-09-06] MEDS ORDERED: PIPERACILLIN/TAZOBAC 3.375 GM VIAL ONE (22:49)
[2020-09-06 23:06] LABS: CLARITY,URINE CLEAR (CLEAR); COLOR,URINE YELLOW (YELLOW)
[2020-09-06 23:07] LABS: KETONES,URINE NEGATIVE (NEGATIVE); LEUKOCYTE ESTERASE ,URINE NEGATIVE (NEGATIVE); NITRITE,URINE NEGATIVE (NEGATIVE); PROTEIN,URINE DIPSTICK NEGATIVE (NEGATIVE); URINE UROBILINOGEN 0.2 mg/dL (0.2 - 1)
[2020-09-06 23:19] LABS: BACTERIA,URINE FEW /HPF; EPITHELIAL CELLS,URINE FEW /LPF; RBC,URINE 0-5 /HPF (0-5); WBC,URINE (MAN) 0-5 /HPF (0-5)
[2020-09-06 23:31] LABS: INR 1.14; PROTHROMBIN TIME 15.4 seconds (11.9-14.5)
[2020-09-06 23:32] LABS: BASOPHILS % 0.2 % (0.0-1.0); EOSINOPHILS # (AUTO) 0.1 (0.0-0.4); EOSINOPHILS % 0.3 % (0.0-6.0); HEMATOCRIT 39.4 % (38.2-49.6); HEMOGLOBIN 13.7 g/dL (14.0-18.0); LYMPHOCYTES # (AUTO) 1.1 (1.0-3.2); LYMPHOCYTES % 6.1 % (18.0-39.1); MEAN CORPUSCULAR HEMOGLOBIN 33.3 pg (28-32); MEAN CORPUSCULAR HGB CONC 34.8 g/dL (31-35); MEAN CORPUSCULAR VOLUME 95.6 fL (81-99); MONOCYTES # (AUTO) 0.7 (0.2-0.8); MONOCYTES % 4.1 % (4.4-11.3); NEUTROPHILS # (AUTO) 15.4 (2.1-6.9); NEUTROPHILS % 88.6 % (38.7-80.0); PARTIAL THROMBOPLASTIN TIME 30.4 seconds (23.8-35.5); PLATELET COUNT 173 x10e3/uL (140-360); RED BLOOD COUNT 4.12 x10e6/uL (4.3-5.7)
[2020-09-06 23:51] LABS: ALBUMIN 3.8 g/dL (3.5-5.0); ALBUMIN/GLOBULIN RATIO 1.2 (0.8-2.0); ANION GAP 15.4 mmol/L (8-16); CALCIUM 9.1 mg/dL (8.4-10.2); POTASSIUM 5.4 mmol/L (3.5-5.1)
[2020-09-06 23:53] LABS: CREATININE, SERUM 1.44 mg/dL (0.72-1.25)
[2020-09-06 23:54] LABS: CREATINE KINASE MB 1.6 ng/mL (0-5.0)
[2020-09-07] MEDS ORDERED: VANCOMYCIN 1GM/NS 250 ML 250 ML IV SCH
[2020-09-07] MEDS ORDERED: SODIUM CHLORIDE 0.9% 1000ML 1,000 ML IV ONE (00:15)
[2020-09-07] MEDS ORDERED: DEXTROSE 50% SYRINGE 50 ML IV PRN (00:30)
[2020-09-07] MEDS ORDERED: ACETAMINOPHEN 325 MG TAB PO PRN ×2 (00:30→06:00)
[2020-09-07] MEDS ORDERED: ONDANSETRON HCL INJ 2MG/ML 2ML 2 MG/ML VIAL IV PRN ×2 (00:30→06:00)
[2020-09-07] MEDS ORDERED: IBUPROFEN 600 MG TAB PO STA (00:55)
[2020-09-07] MEDS ORDERED: IBUPROFEN 600 MG TAB ONE (01:07)
[2020-09-07] MEDS: SODIUM CHLORIDE 0.9% 1000ML 1,000 ML IV SCH ×4 (01:42→20:50)
[2020-09-07] MEDS: PIPERACILLIN/TAZOBAC 3.375 GM in DEXTROSE 5% 50ML 50 ML IV SCH ×3 (05:11→21:02)
[2020-09-07] MEDS ORDERED: PIPERACILLIN/TAZOBAC 3.375 GM VIAL ONE ×3 (05:12→20:20)
[2020-09-07] MEDS ORDERED: ZOLPIDEM TARTRATE 5 MG TAB PO PRN (06:00)
[2020-09-07] MEDS ORDERED: DOCUSATE SODIUM 100 MG CAP PO PRN (06:00)
[2020-09-07 06:03] LABS: BASOPHILS # (AUTO) 0.1 (0.0-0.1); BASOPHILS % 0.3 % (0.0-1.0); EOSINOPHILS % 0.2 % (0.0-6.0); HEMATOCRIT 34.7 % (38.2-49.6); HEMOGLOBIN 11.8 g/dL (14.0-18.0); LYMPHOCYTES # (AUTO) 1.3 (1.0-3.2); LYMPHOCYTES % 8.2 % (18.0-39.1); MEAN CORPUSCULAR HEMOGLOBIN 32.9 pg (28-32); MEAN CORPUSCULAR VOLUME 96.7 fL (81-99); MONOCYTES % 5.8 % (4.4-11.3); NEUTROPHILS # (AUTO) 13.8 (2.1-6.9); NEUTROPHILS % 84.9 % (38.7-80.0); PLATELET COUNT 142 x10e3/uL (140-360); RED BLOOD COUNT 3.59 x10e6/uL (4.3-5.7); RED CELL DISTRIBUTION WIDTH 12.9 % (11.7-14.4)
[2020-09-07] MEDS: CLINDAMYCIN 300MG 50 ML IV SCH ×3 (06:11→21:02)
[2020-09-07 06:19] LABS: ANION GAP 14.1 mmol/L (8-16); CALCIUM 7.9 mg/dL (8.4-10.2); CREATININE, SERUM 1.44 mg/dL (0.72-1.25); POTASSIUM 5.1 mmol/L (3.5-5.1)
[2020-09-07 06:50] LABS: CREATINE KINASE MB 1.4 ng/mL (0-5.0)
[2020-09-07 07:12] LABS: CHOL/HDL RATIO 2.7 (3.9-4.7)
[2020-09-07] MEDS: GABAPENTIN 100 MG CAP PO SCH (08:20)
[2020-09-07] MEDS: INSULIN REGULAR, HUMAN 100 UNIT/1 ML 3ML VIAL SQ SCH ×4 (08:20→21:04)
[2020-09-07] MEDS: ALLOPURINOL 100 MG TAB PO SCH (08:20)
[2020-09-07] MEDS: TAMSULOSIN HCL 0.4 MG CAP PO SCH (08:20)
[2020-09-07] MEDS ORDERED: AMLODIPINE BESYLATE 10 MG TAB PO SCH (09:00)
[2020-09-07] MEDS ORDERED: APIXABAN PO SCH (09:00)
[2020-09-07] MEDS: APIXABAN 5 MG TABLET PO SCH ×2 (09:38→16:36)
[2020-09-07] MEDS: NICOTINE 14 MG/EA PATCH TOP SCH (09:38)
[2020-09-07 10:20] VITALS: BP 108/49
[2020-09-07 11:00] VITALS: BP 108/49
[2020-09-07] MEDS ORDERED: HYDROCHLOROTH12.5 MG PO (11:58)
[2020-09-07] MEDS ORDERED: METFORMIN HCL500 M1 PO (12:02)
[2020-09-07] MEDS ORDERED: METOLAZONE5 MG PO (12:03)
[2020-09-07] MEDS ORDERED: SODIUM CHLORIDE 0.9% 50ML 50 ML ONE ×2 (14:10→20:20)
[2020-09-07 16:00] VITALS: BP 123/76
[2020-09-07 20:00] VITALS: BP 115/93
[2020-09-07] MEDS: ATORVASTATIN 20 MG TAB PO SCH (20:50)
[2020-09-08] VITALS (7 sets, daily range): BP systolic 112–121; BP diastolic 56–72
[2020-09-08] MEDS ORDERED: PIPERACILLIN/TAZOBAC 3.375 GM VIAL ONE (04:57)
[2020-09-08] MEDS ORDERED: SODIUM CHLORIDE 0.9% 50ML 50 ML ONE (04:58)
[2020-09-08 05:07] LABS: BASOPHILS % 0.1 % (0.0-1.0); EOSINOPHILS % 0.1 % (0.0-6.0); HEMATOCRIT 34.2 % (38.2-49.6); HEMOGLOBIN 12.1 g/dL (14.0-18.0); LYMPHOCYTES % 14.7 % (18.0-39.1); MEAN CORPUSCULAR HEMOGLOBIN 34.7 pg (28-32); MEAN CORPUSCULAR HGB CONC 35.4 g/dL (31-35); MONOCYTES # (AUTO) 0.6 (0.2-0.8); MONOCYTES % 8.7 % (4.4-11.3); NEUTROPHILS # (AUTO) 5.2 (2.1-6.9); PLATELET COUNT 136 x10e3/uL (140-360); RED BLOOD COUNT 3.49 x10e6/uL (4.3-5.7); RED CELL DISTRIBUTION WIDTH 13.2 % (11.7-14.4)
[2020-09-08 05:25] LABS: ALANINE AMINOTRANSFERASE 18 IU/L (0-55); ALBUMIN 2.9 g/dL (3.5-5.0); ALBUMIN/GLOBULIN RATIO 0.9 (0.8-2.0); ALKALINE PHOSPHATASE 38 IU/L (40-150); ANION GAP 12.4 mmol/L (8-16); BLOOD UREA NITROGEN 29 mg/dL (7-26); BUN/CREATININE RATIO 29 (6-25); CALCIUM 8.2 mg/dL (8.4-10.2); CARBON DIOXIDE 20 mmol/L (22-29); CHLORIDE 109 mmol/L (98-107); CREATININE, SERUM 0.99 mg/dL (0.72-1.25); EST GLOMERULAR FILTRATION RATE > 60 ML/MIN (60-); GLUCOSE 109 mg/dL (74-118); POTASSIUM 4.4 mmol/L (3.5-5.1); SODIUM 137 mmol/L (136-145)
[2020-09-08] MEDS: PIPERACILLIN/TAZOBAC 3.375 GM in DEXTROSE 5% 50ML 50 ML IV SCH (05:33)
[2020-09-08] MEDS: CLINDAMYCIN 300MG 50 ML IV SCH ×3 (05:33→21:30)
[2020-09-08] MEDS: INSULIN REGULAR, HUMAN 100 UNIT/1 ML 3ML VIAL SQ SCH ×4 (07:30→20:55)
[2020-09-08] MEDS: ALLOPURINOL 100 MG TAB PO SCH (09:06)
[2020-09-08] MEDS: NICOTINE 14 MG/EA PATCH TOP SCH (09:06)
[2020-09-08] MEDS: APIXABAN 5 MG TABLET PO SCH ×2 (09:07→17:31)
[2020-09-08] MEDS: GABAPENTIN 100 MG CAP PO SCH (09:07)
[2020-09-08] MEDS: TAMSULOSIN HCL 0.4 MG CAP PO SCH (09:07)
[2020-09-08] MEDS: SODIUM CHLORIDE 0.9% 1000ML 1,000 ML IV SCH ×2 (09:13→16:30)
[2020-09-08] MEDS: PIPERACILLIN/TAZOBAC 3.375 GM in SODIUM CHLORIDE 0.9% 50ML 50 ML IV SCH ×2 (14:00→22:00)
[2020-09-08] MEDS: ATORVASTATIN 20 MG TAB PO SCH (20:55)
[2020-09-09] VITALS: BP 112/68
[2020-09-09 04:00] VITALS: BP 105/81
[2020-09-09] MEDS: CLINDAMYCIN 300MG 50 ML IV SCH (05:22)
[2020-09-09] MEDS: PIPERACILLIN/TAZOBAC 3.375 GM in SODIUM CHLORIDE 0.9% 50ML 50 ML IV SCH (06:00)
[2020-09-09] MEDS: INSULIN REGULAR, HUMAN 100 UNIT/1 ML 3ML VIAL SQ SCH ×2 (07:30→11:30)
[2020-09-09 08:00] VITALS: BP 113/70
[2020-09-09 08:03] VITALS: BP 113/70
[2020-09-09] MEDS: GABAPENTIN 100 MG CAP PO SCH (08:59)
[2020-09-09] MEDS: NICOTINE 14 MG/EA PATCH TOP SCH (08:59)
[2020-09-09] MEDS: APIXABAN 5 MG TABLET PO SCH (08:59)
[2020-09-09] MEDS: ALLOPURINOL 100 MG TAB PO SCH (08:59)
[2020-09-09] MEDS: TAMSULOSIN HCL 0.4 MG CAP PO SCH (08:59)
[2020-09-09] MEDS ORDERED: DOXYCYCLINE HY100 MG PO (10:59)
[2020-09-09 12:10] VITALS: BP 127/59
== END 2020-09-09 12:19 | disposition home or self-care (01) | DRG 872 ==
LOC: ER 22:23 → ERHOLD 09-07 00:29 → MED/SURG2 09-07 10:24
PROVIDERS: ADMIT Internal Medicine; ATTEND Internal Medicine
DX: A41.9 Sepsis, unspecified organism (principal); I50.22 Chronic systolic (congestive) heart failure; Z68.42 Body mass index [BMI] 45.0-49.9, adult; N17.9 Acute kidney failure, unspecified; L03.116 Cellulitis of left lower limb; L03.115 Cellulitis of right lower limb; E78.5 Hyperlipidemia, unspecified; G47.33 Obstructive sleep apnea (adult) (pediatric); I11.0 Hypertensive heart disease with heart failure; E66.01 Morbid (severe) obesity due to excess calories; I48.0 Paroxysmal atrial fibrillation; Z79.01 Long term (current) use of anticoagulants; M10.9 Gout, unspecified; F17.200 Nicotine dependence, unspecified, uncomplicated; N40.0 Benign prostatic hyperplasia without lower urinary tract symptoms; Z20.822 Contact with and (suspected) exposure to COVID-19
CPT/HCPCS: 36415; 71045; 80048; 80053; 80061; 81001; 82550; 82553; 82948; 83036; 83605; 84484; 85025; 85610; 85730; 87040; 93005; 93306; 93925; 93970; 99251; 99284; J2543; J3370; J7030; U0002

== ENCOUNTER 2021-06-20 16:37 | Emergency (ER) | payer MEDICARE ==
[~2021-06-20] VITALS: Ht 177.8 cm; Wt 116.1 kg
[~2021-06-20 16:37] MED LIST changes: +DOXYCYCLINE HY100 MG PO; +HYDROCHLOROTH12.5 MG PO; +METFORMIN HCL500 M1 PO; +METOLAZONE5 MG PO
[2021-06-20] MEDS ORDERED: TRAMADOL HCL 50 MG TAB PO STA (16:57)
[2021-06-20] MEDS ORDERED: KETOROLAC TROMETHAMINE 60 MG/2 ML VIAL IM ONE (17:15)
[2021-06-20] MEDS ORDERED: KETOROLAC TROMETHAMINE 60 MG/2 ML VIAL ONE (17:21)
[2021-06-20] MEDS ORDERED: KETOROLAC TROME10 MG PO (18:48)
== END 2021-06-20 19:08 | disposition home or self-care (01) ==
LOC: ER 16:57
DX: M54.50 Low back pain, unspecified (principal); I10 Essential (primary) hypertension; E11.9 Type 2 diabetes mellitus without complications; E78.5 Hyperlipidemia, unspecified; I48.91 Unspecified atrial fibrillation; G47.30 Sleep apnea, unspecified
CPT/HCPCS: 74176; 99283; J1885

== ENCOUNTER 2021-06-28 22:51 | Emergency (ER) | payer MEDICARE ==
[~2021-06-28] VITALS: Ht 177.8 cm; Wt 116.1 kg
[~2021-06-28 22:51] MED LIST changes: -FUROSEMIDE INJ 10 MG/ML 4 ML VIAL ONE
[2021-06-29 01:34] VITALS: BP 111/61
== END 2021-06-29 00:25 | disposition home or self-care (01) ==
LOC: ER 06-29 00:22
DX: M54.50 Low back pain, unspecified (principal); G89.29 Other chronic pain; I10 Essential (primary) hypertension; E11.9 Type 2 diabetes mellitus without complications; E78.5 Hyperlipidemia, unspecified; I48.91 Unspecified atrial fibrillation; G47.30 Sleep apnea, unspecified
CPT/HCPCS: 99282

== ENCOUNTER → 2021-06-28 | Outpatient (CLI) | payer MEDICARE ==
[~2021-06-28] MED LIST changes: +FUROSEMIDE INJ 10 MG/ML 4 ML VIAL ONE; +KETOROLAC TROME10 MG PO
== END ==
LOC: NM 08:38
PROVIDERS: ATTEND Urology
DX: N20.0 Calculus of kidney (principal)
CPT/HCPCS: 78708; A9562; J1940

== ENCOUNTER 2021-07-07 12:16 | Emergency (ER) | payer MEDICARE ==
[~2021-07-07] VITALS: Ht 177.8 cm; Wt 116.1 kg
[2021-07-07] MEDS ORDERED: SODIUM CHLORIDE 0.9% 500ML 500 ML IV ONE (13:30)
[2021-07-07 13:44] LABS: BASOPHILS # (AUTO) 0.1 (0.0-0.1); BASOPHILS % 0.5 % (0.0-1.0); EOSINOPHILS # (AUTO) 0.1 (0.0-0.4); EOSINOPHILS % 0.9 % (0.0-6.0); HEMATOCRIT 30.5 % (38.2-49.6); HEMOGLOBIN 9.6 g/dL (14.0-18.0); LYMPHOCYTES # (AUTO) 1.8 (1.0-3.2); LYMPHOCYTES % 16.6 % (18.0-39.1); MEAN CORPUSCULAR HGB CONC 31.5 g/dL (31-35); MEAN CORPUSCULAR VOLUME 98.4 fL (81-99); MONOCYTES # (AUTO) 0.8 (0.2-0.8); MONOCYTES % 7.4 % (4.4-11.3); NEUTROPHILS # (AUTO) 8.2 (2.1-6.9); NEUTROPHILS % 73.9 % (38.7-80.0); PLATELET COUNT 361 x10e3/uL (140-360); RED CELL DISTRIBUTION WIDTH 14.8 % (11.7-14.4)
[2021-07-07 14:02] LABS: ALBUMIN 2.9 g/dL (3.5-5.0); ALBUMIN/GLOBULIN RATIO 0.6 (0.8-2.0); ANION GAP 15.8 mmol/L (8-16); CALCIUM 8.9 mg/dL (8.4-10.2); CREATININE, SERUM 0.98 mg/dL (0.72-1.25); POTASSIUM 4.8 mmol/L (3.5-5.1)
[2021-07-07 14:20] LABS: CLARITY,URINE CLEAR (CLEAR); COLOR,URINE YELLOW (YELLOW)
[2021-07-07 14:21] LABS: KETONES,URINE NEGATIVE (NEGATIVE); LEUKOCYTE ESTERASE ,URINE NEGATIVE (NEGATIVE); NITRITE,URINE NEGATIVE (NEGATIVE); PROTEIN,URINE DIPSTICK NEGATIVE (NEGATIVE); URINE UROBILINOGEN 0.2 mg/dL (0.2 - 1)
[2021-07-07 14:27] LABS: WBC,URINE (MAN) 0-5 /HPF (0-5)
[2021-07-07 14:28] LABS: AMORPHOUS SEDIMENT,URINE FEW (FEW); EPITHELIAL CELLS,URINE FEW /LPF; HYALINE CASTS 0-1 (0-1)
[2021-07-07] MEDS ORDERED: IOPAMIDOL 370 MG/ML 200 ML INFUS..BTL INJ ONE (15:10)
[2021-07-07] MEDS ORDERED: SODIUM CHLORIDE 0.9% 50ML 50 ML ONE (15:11)
[2021-07-07] MEDS ORDERED: ALTEPLASE RECOMBINANT 2 MG/2 ML VIAL IV PRN (16:45)
[2021-07-07 17:34] VITALS: BP 138/78
== END 2021-07-07 17:35 | disposition home or self-care (01) ==
LOC: ER 13:34
DX: R10.30 Lower abdominal pain, unspecified (principal); K80.20 Calculus of gallbladder without cholecystitis without obstruction; R91.8 Other nonspecific abnormal finding of lung field; I10 Essential (primary) hypertension; E11.65 Type 2 diabetes mellitus with hyperglycemia; E78.5 Hyperlipidemia, unspecified; I48.91 Unspecified atrial fibrillation; G47.30 Sleep apnea, unspecified; F17.210 Nicotine dependence, cigarettes, uncomplicated
CPT/HCPCS: 36415; 74177; 80053; 81001; 85025; 87086; 99284; J2997; J7040; Q9967

== ENCOUNTER 2022-12-09 00:34 | Inpatient (IN) | payer MEDICARE ==
[~2022-12-09] VITALS: Ht 177.8 cm; Wt 119.1 kg
[2022-12-09] VITALS (58 sets, daily range): BP systolic 79–138; BP diastolic 56–110; PULSE 52–114; RESP 20–35; TEMP 97.2–98.9; O2SAT 94–100
[~2022-12-09 00:34] MED LIST changes: +METHOCARBAMOL500 MG PO; +NAPROXEN250 MG PO
[2022-12-09] MEDS ORDERED: ALBUTEROL SULF 0.083% NEB SOLN 3 ML NEB NEB STA (00:43)
[2022-12-09] MEDS ORDERED: SODIUM CHLORIDE 0.9% 1000ML 1,000 ML IV ONE ×2 (00:45→04:45)
[2022-12-09] MEDS ORDERED: ACETAMINOPHEN 325 MG TAB PO ONE (00:45)
[2022-12-09] MEDS ORDERED: IPRATROPIUM BROMIDE 0.02% 2.5 ML NEB NEB ONE (00:45)
[2022-12-09] MEDS ORDERED: PIPERACILLIN/TAZOBACTAM 3.375 GM VIAL ONE (01:07)
[2022-12-09 01:12] LABS: BASOPHILS % 0.1 % (0.0-1.0); EOSINOPHILS % 0.1 % (0.0-6.0); HEMATOCRIT 42.8 % (38.2-49.6); HEMOGLOBIN 14.1 g/dL (14.0-18.0); LYMPHOCYTES # (AUTO) 0.5 (1.0-3.2); LYMPHOCYTES % 3.3 % (18.0-39.1); MEAN CORPUSCULAR HEMOGLOBIN 29.4 pg (28-32); MEAN CORPUSCULAR HGB CONC 32.9 g/dL (31-35); MEAN CORPUSCULAR VOLUME 89.4 fL (81-99); MONOCYTES # (AUTO) 0.2 (0.2-0.8); MONOCYTES % 1.2 % (4.4-11.3); NEUTROPHILS # (AUTO) 14.1 (2.1-6.9); NEUTROPHILS % 94.6 % (38.7-80.0); PLATELET COUNT 244 x10e3/uL (140-360); RED BLOOD COUNT 4.79 x10e6/uL (4.3-5.7); RED CELL DISTRIBUTION WIDTH 16.1 % (11.7-14.4)
[2022-12-09 01:30] LABS: ALBUMIN 3.2 g/dL (3.5-5.0); ALBUMIN/GLOBULIN RATIO 0.9 (0.8-2.0); ANION GAP 19.2 mmol/L (8-16); CALCIUM 9.1 mg/dL (8.4-10.2); CREATININE, SERUM 1.29 mg/dL (0.72-1.25); POTASSIUM 4.2 mmol/L (3.5-5.1)
[2022-12-09 02:27] LABS: B-TYPE NATRIURETIC PEPTIDE2 63.6 pg/mL (0-100)
[2022-12-09] MEDS ORDERED: SODIUM CHLORIDE 0.9% 1000ML 1,000 ML IV SCH (02:30)
[2022-12-09] MEDS ORDERED: DEXTROSE 50% SYRINGE 50 ML IV PRN (02:45)
[2022-12-09] MEDS: NICOTINE 21 MG/EA PATCH TOP SCH (02:59)
[2022-12-09] MEDS: ALBUTEROL/IPRATROPIUM 3 ML NEB NEB SCH ×6 (04:25→22:50)
[2022-12-09] MEDS ORDERED: ACETAMINOPHEN 325 MG TAB PO PRN (05:00)
[2022-12-09] MEDS: INSULIN REGULAR, HUMAN 100 UNIT/1 ML SQ SCH ×4 (06:47→21:00)
[2022-12-09] MEDS ORDERED: ONDANSETRON HCL INJ 2MG/ML 2ML 2 MG/ML VIAL IV PRN (08:45)
[2022-12-09] MEDS ORDERED: ZINC SULFATE50 MG PO (08:47)
[2022-12-09] MEDS ORDERED: INCRUSE ELLI62.5 MCG INH (08:47)
[2022-12-09] MEDS ORDERED: METOPROLOL TART25 MG PO (08:47)
[2022-12-09] MEDS ORDERED: MAGNESIUM OXID400 MG PO (08:47)
[2022-12-09] MEDS ORDERED: ALBUTEROL2.5 MG/3 M NEB (08:47)
[2022-12-09] MEDS ORDERED: BREO ELLIPTA 21 EACH INH (08:47)
[2022-12-09] MEDS ORDERED: FUROSEMIDE40 MG PO (08:47)
[2022-12-09] MEDS ORDERED: POTASSIUM CHLO10 ME1 PO (08:47)
[2022-12-09] MEDS ORDERED: MONTELUKAST SOD10 MG PO (08:47)
[2022-12-09] MEDS ORDERED: HYDROXYZIN10 MG/5 ML PO (08:54)
[2022-12-09] MEDS ORDERED: LEVOCETIRIZINE D5 MG PO (08:54)
[2022-12-09] MEDS: VASOPRESSIN 60 UNIT in DEXTROSE 5% 50ML 50 ML IV SCH (09:30)
[2022-12-09] MEDS ORDERED: FUROSEMIDE INJ 10 MG/ML 4 ML VIAL IV ONE (09:30)
[2022-12-09] MEDS: APIXABAN 5 MG TABLET PO SCH ×2 (09:56→17:06)
[2022-12-09 10:26] LABS: CLARITY,URINE SL CLOUDY (CLEAR); COLOR,URINE YELLOW (YELLOW); LEUKOCYTE ESTERASE ,URINE NEGATIVE (NEGATIVE); NITRITE,URINE NEGATIVE (NEGATIVE)
[2022-12-09 10:27] LABS: BACTERIA,URINE MODERATE /HPF; EPITHELIAL CELLS,URINE MODERATE /LPF; KETONES,URINE TRACE (NEGATIVE); PROTEIN,URINE DIPSTICK 2+ (NEGATIVE); RBC,URINE 0-5 /HPF (0-5); URINE UROBILINOGEN 0.2 mg/dL (0.2 - 1); WBC,URINE (MAN) 0-5 /HPF (0-5)
[2022-12-09] MEDS: BUDESONIDE 0.5MG/2 ML NEB INH SCH ×2 (11:30→19:36)
[2022-12-09] MEDS: Vancomycin IV 1 GM in SODIUM CHLORIDE 0.9% 250ML 250 ML IV SCH (15:58)
[2022-12-09] MEDS ORDERED: METOPROLOL TARTRATE INJ 1 MG/ML VIAL IV PRN (16:00)
[2022-12-09] MEDS: TAMSULOSIN HCL 0.4 MG CAP PO SCH (17:06)
[2022-12-09] MEDS: FAMOTIDINE 20 MG TAB PO SCH (17:06)
[2022-12-10] VITALS (35 sets, daily range): BP systolic 93–147; BP diastolic 52–91; PULSE 54–112; RESP 18–33; TEMP 98.2–98.5; O2SAT 77–100
[2022-12-10] MEDS: NICOTINE 21 MG/EA PATCH TOP SCH (02:29)
[2022-12-10] MEDS: ALBUTEROL/IPRATROPIUM 3 ML NEB NEB SCH ×6 (02:30→23:00)
[2022-12-10 05:37] LABS: BASOPHILS % 0.1 % (0.0-1.0); HEMATOCRIT 35.4 % (38.2-49.6); HEMOGLOBIN 11.7 g/dL (14.0-18.0); LYMPHOCYTES # (AUTO) 0.8 (1.0-3.2); LYMPHOCYTES % 3.4 % (18.0-39.1); MEAN CORPUSCULAR HEMOGLOBIN 29.6 pg (28-32); MEAN CORPUSCULAR HGB CONC 33.1 g/dL (31-35); MEAN CORPUSCULAR VOLUME 89.6 fL (81-99); MONOCYTES # (AUTO) 0.6 (0.2-0.8); MONOCYTES % 2.7 % (4.4-11.3); NEUTROPHILS # (AUTO) 21.1 (2.1-6.9); NEUTROPHILS % 92.1 % (38.7-80.0); PLATELET COUNT 195 x10e3/uL (140-360); RED BLOOD COUNT 3.95 x10e6/uL (4.3-5.7); RED CELL DISTRIBUTION WIDTH 16.4 % (11.7-14.4)
[2022-12-10] MEDS: Vancomycin IV 1 GM in SODIUM CHLORIDE 0.9% 250ML 250 ML IV SCH (05:42)
[2022-12-10 06:17] LABS: ANION GAP 15.5 mmol/L (8-16); CALCIUM 8.5 mg/dL (8.4-10.2); CREATININE, SERUM 1.04 mg/dL (0.72-1.25); POTASSIUM 4.5 mmol/L (3.5-5.1)
[2022-12-10] MEDS: BUDESONIDE 0.5MG/2 ML NEB INH SCH ×2 (06:55→18:56)
[2022-12-10] MEDS: INSULIN REGULAR, HUMAN 100 UNIT/1 ML SQ SCH ×4 (07:30→21:00)
[2022-12-10 07:43] LABS: BAND NEUTROPHILS % (MANUAL) 9 %; LYMPHOCYTES % (MANUAL) 2 % (19-48); MONOCYTES % (MANUAL) 4 % (3.4-9.0); NEUTROPHILS % (MANUAL) 85 % (40-74); PLATELET ESTIMATE ADEQUATE; PLATELET MORPHOLOGY COMMENT NORMAL; RBC MORPHOLOGY COMMENT NORMAL
[2022-12-10] MEDS: FAMOTIDINE 20 MG TAB PO SCH ×2 (08:07→18:07)
[2022-12-10] MEDS ORDERED: MAGNESIUM SULFATE 2GM/50ML 50 ML IV ONE (08:15)
[2022-12-10] MEDS: APIXABAN 5 MG TABLET PO SCH ×2 (09:03→18:05)
[2022-12-10] MEDS: VASOPRESSIN 60 UNIT in DEXTROSE 5% 50ML 50 ML IV SCH (09:30)
[2022-12-10] MEDS: ALLOPURINOL 300 MG TAB PO SCH (15:17)
[2022-12-10] MEDS ORDERED: FUROSEMIDE INJ 10 MG/ML 4 ML VIAL IV ONE (17:45)
[2022-12-10] MEDS: TAMSULOSIN HCL 0.4 MG CAP PO SCH (18:05)
[2022-12-11] VITALS (30 sets, daily range): BP systolic 110–157; BP diastolic 63–105; PULSE 44–167; RESP 18–33; TEMP 98.2–98.5; O2SAT 92–100
[2022-12-11] MEDS: ALBUTEROL/IPRATROPIUM 3 ML NEB NEB SCH ×6 (03:05→23:05)
[2022-12-11 03:35] LABS: BASOPHILS % 0.2 % (0.0-1.0); EOSINOPHILS % 0.1 % (0.0-6.0); HEMATOCRIT 35.5 % (38.2-49.6); HEMOGLOBIN 11.6 g/dL (14.0-18.0); LYMPHOCYTES # (AUTO) 1.2 (1.0-3.2); LYMPHOCYTES % 7.2 % (18.0-39.1); MEAN CORPUSCULAR HEMOGLOBIN 29.1 pg (28-32); MEAN CORPUSCULAR HGB CONC 32.7 g/dL (31-35); MEAN CORPUSCULAR VOLUME 89.2 fL (81-99); MONOCYTES # (AUTO) 0.4 (0.2-0.8); MONOCYTES % 2.4 % (4.4-11.3); NEUTROPHILS # (AUTO) 14.6 (2.1-6.9); NEUTROPHILS % 89.1 % (38.7-80.0); PLATELET COUNT 203 x10e3/uL (140-360); RED BLOOD COUNT 3.98 x10e6/uL (4.3-5.7); RED CELL DISTRIBUTION WIDTH 16.2 % (11.7-14.4)
[2022-12-11] MEDS: NICOTINE 21 MG/EA PATCH TOP SCH (03:45)
[2022-12-11 03:58] LABS: ALBUMIN 2.4 g/dL (3.5-5.0); ALBUMIN/GLOBULIN RATIO 0.7 (0.8-2.0); ANION GAP 13.1 mmol/L (8-16); CALCIUM 8.5 mg/dL (8.4-10.2); CREATININE, SERUM 0.95 mg/dL (0.72-1.25); POTASSIUM 4.1 mmol/L (3.5-5.1)
[2022-12-11] MEDS: INSULIN REGULAR, HUMAN 100 UNIT/1 ML SQ SCH ×4 (07:30→20:09)
[2022-12-11] MEDS: BUDESONIDE 0.5MG/2 ML NEB INH SCH ×2 (08:05→19:13)
[2022-12-11] MEDS: APIXABAN 5 MG TABLET PO SCH ×2 (08:37→18:10)
[2022-12-11] MEDS: FAMOTIDINE 20 MG TAB PO SCH ×2 (08:37→18:10)
[2022-12-11] MEDS: ALLOPURINOL 300 MG TAB PO SCH (08:37)
[2022-12-11] MEDS: VASOPRESSIN 60 UNIT in DEXTROSE 5% 50ML 50 ML IV SCH (09:30)
[2022-12-11] MEDS: TAMSULOSIN HCL 0.4 MG CAP PO SCH (18:10)
[2022-12-12] VITALS (20 sets, daily range): BP systolic 110–150; BP diastolic 58–95; PULSE 48–96; RESP 17–33; TEMP 98–98.6; O2SAT 93–100
[2022-12-12] MEDS: NICOTINE 21 MG/EA PATCH TOP SCH (02:04)
[2022-12-12] MEDS: ALBUTEROL/IPRATROPIUM 3 ML NEB NEB SCH ×6 (02:56→23:05)
[2022-12-12 06:25] LABS: BASOPHILS % 0.4 % (0.0-1.0); EOSINOPHILS % 0.4 % (0.0-6.0); HEMATOCRIT 37.1 % (38.2-49.6); HEMOGLOBIN 11.7 g/dL (14.0-18.0); LYMPHOCYTES % 9.7 % (18.0-39.1); MEAN CORPUSCULAR HEMOGLOBIN 28.9 pg (28-32); MEAN CORPUSCULAR HGB CONC 31.5 g/dL (31-35); MEAN CORPUSCULAR VOLUME 91.6 fL (81-99); MONOCYTES # (AUTO) 0.3 (0.2-0.8); MONOCYTES % 3.2 % (4.4-11.3); NEUTROPHILS # (AUTO) 9.1 (2.1-6.9); NEUTROPHILS % 85.6 % (38.7-80.0); PLATELET COUNT 201 x10e3/uL (140-360); RED BLOOD COUNT 4.05 x10e6/uL (4.3-5.7); RED CELL DISTRIBUTION WIDTH 16.3 % (11.7-14.4)
[2022-12-12 07:12] LABS: ALBUMIN 2.4 g/dL (3.5-5.0); ALBUMIN/GLOBULIN RATIO 0.7 (0.8-2.0); ANION GAP 11.2 mmol/L (8-16); CALCIUM 8.7 mg/dL (8.4-10.2); CREATININE, SERUM 0.76 mg/dL (0.72-1.25); MAGNESIUM 1.9 MG/DL (1.3-2.1); PHOSPHORUS 3.4 MG/DL (2.3-4.7); POTASSIUM 4.2 mmol/L (3.5-5.1)
[2022-12-12] MEDS: INSULIN REGULAR, HUMAN 100 UNIT/1 ML SQ SCH ×4 (07:30→21:00)
[2022-12-12] MEDS: BUDESONIDE 0.5MG/2 ML NEB INH SCH ×2 (07:30→19:20)
[2022-12-12] MEDS: VASOPRESSIN 60 UNIT in DEXTROSE 5% 50ML 50 ML IV SCH (08:08)
[2022-12-12] MEDS: ALLOPURINOL 300 MG TAB PO SCH (08:16)
[2022-12-12] MEDS: FAMOTIDINE 20 MG TAB PO SCH ×2 (08:16→17:14)
[2022-12-12] MEDS: APIXABAN 5 MG TABLET PO SCH ×2 (08:16→17:13)
[2022-12-12] MEDS: CEFTRIAXONE 2 GM in SODIUM CHLORIDE 0.9% 100 ML IV SCH (08:17)
[2022-12-12] MEDS: TAMSULOSIN HCL 0.4 MG CAP PO SCH (17:13)
[2022-12-13] VITALS (13 sets, daily range): BP systolic 115–137; BP diastolic 60–89; PULSE 64–97; RESP 17–22; TEMP 97.7–98.1; O2SAT 92–100
[2022-12-13] MEDS: NICOTINE 21 MG/EA PATCH TOP SCH (02:45)
[2022-12-13] MEDS: ALBUTEROL/IPRATROPIUM 3 ML NEB NEB SCH ×6 (03:05→23:15)
[2022-12-13 07:16] LABS: BASOPHILS % 0.3 % (0.0-1.0); EOSINOPHILS % 0.2 % (0.0-6.0); HEMATOCRIT 36.1 % (38.2-49.6); HEMOGLOBIN 11.8 g/dL (14.0-18.0); LYMPHOCYTES % 11.7 % (18.0-39.1); MEAN CORPUSCULAR HEMOGLOBIN 29.2 pg (28-32); MEAN CORPUSCULAR HGB CONC 32.7 g/dL (31-35); MEAN CORPUSCULAR VOLUME 89.4 fL (81-99); MONOCYTES # (AUTO) 0.6 (0.2-0.8); MONOCYTES % 7.1 % (4.4-11.3); PLATELET COUNT 223 x10e3/uL (140-360); RED BLOOD COUNT 4.04 x10e6/uL (4.3-5.7); RED CELL DISTRIBUTION WIDTH 16.1 % (11.7-14.4)
[2022-12-13] MEDS: FAMOTIDINE 20 MG TAB PO SCH ×2 (07:26→16:45)
[2022-12-13] MEDS: INSULIN REGULAR, HUMAN 100 UNIT/1 ML SQ SCH ×4 (07:26→21:00)
[2022-12-13 07:36] LABS: ALBUMIN 2.5 g/dL (3.5-5.0); ALBUMIN/GLOBULIN RATIO 0.7 (0.8-2.0); CREATININE, SERUM 0.76 mg/dL (0.72-1.25)
[2022-12-13] MEDS: BUDESONIDE 0.5MG/2 ML NEB INH SCH ×2 (08:00→18:50)
[2022-12-13] MEDS: ALLOPURINOL 300 MG TAB PO SCH ×2 (09:00→16:49)
[2022-12-13] MEDS: APIXABAN 5 MG TABLET PO SCH ×2 (09:00→16:45)
[2022-12-13] MEDS: CEFTRIAXONE 2 GM in SODIUM CHLORIDE 0.9% 100 ML IV SCH (09:43)
[2022-12-13] MEDS: MUPIROCIN 2% OINT 22 GM TUBE TOP SCH (12:07)
[2022-12-13] MEDS ORDERED: BENZOCAINE 20% SPR 60 ML CAN ONE (12:34)
[2022-12-13] MEDS ORDERED: SODIUM CHLORIDE 0.9% 1000ML 1,000 ML ONE (12:34)
[2022-12-13] MEDS ORDERED: MIDAZOLAM HCL 2 MG/2 ML VIAL ONE (13:18)
[2022-12-13] MEDS ORDERED: FENTANYL CITRATE/PF 100MCG/2 ML INJ ONE (13:18)
[2022-12-13] MEDS ORDERED: ONDANSETRON HCL 4 MG ORAL DISINTEGRATING TAB PO PRN (14:00)
[2022-12-13] MEDS: TAMSULOSIN HCL 0.4 MG CAP PO SCH (16:45)
[2022-12-14] VITALS (13 sets, daily range): BP systolic 126–150; BP diastolic 67–87; PULSE 64–99; RESP 17–22; TEMP 97.7–99.1; O2SAT 92–100
[2022-12-14] MEDS: ALBUTEROL/IPRATROPIUM 3 ML NEB NEB SCH ×6 (00:35→20:10)
[2022-12-14] MEDS: NICOTINE 21 MG/EA PATCH TOP SCH (06:49)
[2022-12-14] MEDS: BUDESONIDE 0.5MG/2 ML NEB INH SCH ×2 (06:55→20:10)
[2022-12-14] MEDS: INSULIN REGULAR, HUMAN 100 UNIT/1 ML SQ SCH ×4 (07:30→20:52)
[2022-12-14] MEDS: FAMOTIDINE 20 MG TAB PO SCH ×2 (08:55→16:37)
[2022-12-14] MEDS: CEFTRIAXONE 2 GM in SODIUM CHLORIDE 0.9% 100 ML IV SCH (08:55)
[2022-12-14] MEDS: APIXABAN 5 MG TABLET PO SCH ×2 (08:55→16:36)
[2022-12-14] MEDS: ALLOPURINOL 300 MG TAB PO SCH (08:55)
[2022-12-14] MEDS: MUPIROCIN 2% OINT 22 GM TUBE TOP SCH (08:56)
[2022-12-14] MEDS: BALSAM PERU/CASTOR OIL 60 GM OINT...G. TP SCH (08:56)
[2022-12-14] MEDS ORDERED: METOPROLOL SUCCINATE 25 MG TAB XL PO ONE (12:45)
[2022-12-14] MEDS ORDERED: FUROSEMIDE INJ 10 MG/ML 4 ML VIAL IV ONE (13:45)
[2022-12-14] MEDS: TAMSULOSIN HCL 0.4 MG CAP PO SCH (16:36)
[2022-12-15] VITALS (15 sets, daily range): BP systolic 124–151; BP diastolic 74–90; PULSE 65–90; RESP 17–24; TEMP 97.1–99; O2SAT 95–100
[2022-12-15] MEDS: ALBUTEROL/IPRATROPIUM 3 ML NEB NEB SCH ×6 (00:30→19:55)
[2022-12-15] MEDS: NICOTINE 21 MG/EA PATCH TOP SCH (06:12)
[2022-12-15] MEDS: BUDESONIDE 0.5MG/2 ML NEB INH SCH ×2 (06:20→19:55)
[2022-12-15] MEDS: INSULIN REGULAR, HUMAN 100 UNIT/1 ML SQ SCH ×4 (07:30→21:00)
[2022-12-15] MEDS: APIXABAN 5 MG TABLET PO SCH ×2 (09:19→16:24)
[2022-12-15] MEDS: CEFTRIAXONE 2 GM in SODIUM CHLORIDE 0.9% 100 ML IV SCH (09:19)
[2022-12-15] MEDS: ALLOPURINOL 300 MG TAB PO SCH (09:19)
[2022-12-15] MEDS: LOSARTAN POTASSIUM 100 MG TAB PO SCH (09:20)
[2022-12-15] MEDS: METOPROLOL SUCCINATE 50 MG TAB XL PO SCH (09:21)
[2022-12-15] MEDS: BALSAM PERU/CASTOR OIL 60 GM OINT...G. TP SCH (09:27)
[2022-12-15] MEDS: MUPIROCIN 2% OINT 22 GM TUBE TOP SCH (09:28)
[2022-12-15] MEDS: FAMOTIDINE 20 MG TAB PO SCH ×2 (10:01→16:24)
[2022-12-15] MEDS: TAMSULOSIN HCL 0.4 MG CAP PO SCH (16:24)
[2022-12-15] MEDS: GABAPENTIN 300 MG CAP PO SCH ×2 (16:26→22:47)
[2022-12-15] MEDS: ATORVASTATIN 20 MG TAB PO SCH (22:20)
[2022-12-15] MEDS: MONTELUKAST SODIUM 10 MG TAB PO SCH (22:20)
[2022-12-16] VITALS (14 sets, daily range): BP systolic 93–111; BP diastolic 51–79; PULSE 56–120; RESP 16–23; TEMP 97.4–98.4; O2SAT 94–98
[2022-12-16] MEDS: NICOTINE 21 MG/EA PATCH TOP SCH (02:52)
[2022-12-16] MEDS: ALBUTEROL/IPRATROPIUM 3 ML NEB NEB SCH ×6 (03:45→22:00)
[2022-12-16] MEDS: GABAPENTIN 300 MG CAP PO SCH ×3 (05:47→21:23)
[2022-12-16] MEDS: BUDESONIDE 0.5MG/2 ML NEB INH SCH ×2 (06:40→18:30)
[2022-12-16] MEDS: INSULIN REGULAR, HUMAN 100 UNIT/1 ML SQ SCH ×4 (07:30→21:00)
[2022-12-16] MEDS: METOPROLOL SUCCINATE 50 MG TAB XL PO SCH (09:35)
[2022-12-16] MEDS: APIXABAN 5 MG TABLET PO SCH ×2 (09:35→17:02)
[2022-12-16] MEDS: FAMOTIDINE 20 MG TAB PO SCH ×2 (09:35→17:02)
[2022-12-16] MEDS: LOSARTAN POTASSIUM 100 MG TAB PO SCH (09:35)
[2022-12-16] MEDS: ALLOPURINOL 300 MG TAB PO SCH (09:36)
[2022-12-16] MEDS: MUPIROCIN 2% OINT 22 GM TUBE TOP SCH (09:36)
[2022-12-16] MEDS: BALSAM PERU/CASTOR OIL 60 GM OINT...G. TP SCH (09:36)
[2022-12-16] MEDS: CEFTRIAXONE 2 GM in SODIUM CHLORIDE 0.9% 100 ML IV SCH (10:26)
[2022-12-16] MEDS: AMIODARONE HCL 200 MG TAB PO SCH (17:02)
[2022-12-16] MEDS: TAMSULOSIN HCL 0.4 MG CAP PO SCH (17:02)
[2022-12-16 17:36] LABS: MAGNESIUM 1.9 MG/DL (1.3-2.1); POTASSIUM 4.1 mmol/L (3.5-5.1)
[2022-12-16] MEDS: MONTELUKAST SODIUM 10 MG TAB PO SCH (21:22)
[2022-12-16] MEDS: ATORVASTATIN 20 MG TAB PO SCH (21:23)
[2022-12-17] VITALS (10 sets, daily range): BP systolic 93–111; BP diastolic 53–69; PULSE 51–86; RESP 17–20; TEMP 97.7–98.4; O2SAT 94–100
[2022-12-17] MEDS: ALBUTEROL/IPRATROPIUM 3 ML NEB NEB SCH ×3 (00:30→11:30)
[2022-12-17] MEDS: NICOTINE 21 MG/EA PATCH TOP SCH (04:34)
[2022-12-17] MEDS: GABAPENTIN 300 MG CAP PO SCH ×2 (05:45→14:27)
[2022-12-17 06:43] LABS: MAGNESIUM 1.9 MG/DL (1.3-2.1); POTASSIUM 4.1 mmol/L (3.5-5.1)
[2022-12-17] MEDS: BUDESONIDE 0.5MG/2 ML NEB INH SCH (07:25)
[2022-12-17] MEDS: INSULIN REGULAR, HUMAN 100 UNIT/1 ML SQ SCH ×2 (07:30→11:30)
[2022-12-17] MEDS: ALLOPURINOL 300 MG TAB PO SCH (09:14)
[2022-12-17] MEDS: APIXABAN 5 MG TABLET PO SCH (09:14)
[2022-12-17] MEDS: LOSARTAN POTASSIUM 100 MG TAB PO SCH (09:15)
[2022-12-17] MEDS: METOPROLOL SUCCINATE 50 MG TAB XL PO SCH (09:15)
[2022-12-17] MEDS: FAMOTIDINE 20 MG TAB PO SCH (09:15)
[2022-12-17] MEDS: AMIODARONE HCL 200 MG TAB PO SCH (09:16)
[2022-12-17] MEDS: CEFTRIAXONE 2 GM in SODIUM CHLORIDE 0.9% 100 ML IV SCH (09:16)
[2022-12-17] MEDS: MUPIROCIN 2% OINT 22 GM TUBE TOP SCH (09:17)
[2022-12-17] MEDS: BALSAM PERU/CASTOR OIL 60 GM OINT...G. TP SCH (09:17)
[2022-12-17] MEDS ORDERED: LEVALBUTEROL HCL SOLN NEBU 1.25 MG/3 ML NEB INH PRN (11:30)
[2022-12-17] MEDS ORDERED: IPRATROPIUM BROMIDE 0.02% 2.5 ML NEB NEB SCH (13:00)
[2022-12-17] MEDS ORDERED: METOPROLOL SUCCINATE 50 MG TAB XL PO SCH (17:00)
[2022-12-17] MEDS ORDERED: AMIODARONE HCL 200 MG TAB PO SCH (17:00)
[2022-12-24] MEDS ORDERED: AMIODARONE HCL 200 MG TAB PO SCH (09:00)
== END 2022-12-17 15:08 | DRG 871 ==
LOC: ER 00:40 → ERHOLD 02:38 → ICU 05:28 → MED/SURG2 12-12 15:30
PROVIDERS: ADMIT Internal Medicine; ATTEND Internal Medicine
PROC: 02HV33Z Insertion of Infusion Device into Superior Vena Cava, Percutaneous Approach (ICD-10-PCS; 2022-12-09)
PROC: B548ZZA Ultrasonography of Superior Vena Cava, Guidance (ICD-10-PCS; 2022-12-09)
PROC: B24BZZ4 Ultrasonography of Heart with Aorta, Transesophageal (ICD-10-PCS; principal; 2022-12-13)
DX: A40.8 Other streptococcal sepsis (principal); G92.9 Unspecified toxic encephalopathy; I50.23 Acute on chronic systolic (congestive) heart failure; J18.9 Pneumonia, unspecified organism; L03.115 Cellulitis of right lower limb; I13.0 Hypertensive heart and chronic kidney disease with heart failure and stage 1 through stage 4 chronic kidney disease, or unspecified chronic kidney disease; J44.1 Chronic obstructive pulmonary disease with (acute) exacerbation; N18.4 Chronic kidney disease, stage 4 (severe); N17.9 Acute kidney failure, unspecified; I42.9 Cardiomyopathy, unspecified; J44.0 Chronic obstructive pulmonary disease with (acute) lower respiratory infection; R65.20 Severe sepsis without septic shock; I48.0 Paroxysmal atrial fibrillation; I73.89 Other specified peripheral vascular diseases; E66.01 Morbid (severe) obesity due to excess calories; Z68.39 Body mass index [BMI] 39.0-39.9, adult; R53.81 Other malaise; F17.218 Nicotine dependence, cigarettes, with other nicotine-induced disorders; E78.5 Hyperlipidemia, unspecified; N40.0 Benign prostatic hyperplasia without lower urinary tract symptoms; R73.03 Prediabetes; M19.90 Unspecified osteoarthritis, unspecified site; R31.9 Hematuria, unspecified; G47.33 Obstructive sleep apnea (adult) (pediatric); M10.9 Gout, unspecified; M54.9 Dorsalgia, unspecified; Z96.659 Presence of unspecified artificial knee joint; R26.81 Unsteadiness on feet; Z88.1 Allergy status to other antibiotic agents; I25.2 Old myocardial infarction; Z79.82 Long term (current) use of aspirin; Z79.01 Long term (current) use of anticoagulants; Z79.84 Long term (current) use of oral hypoglycemic drugs; Z79.899 Other long term (current) drug therapy; Z87.440 Personal history of urinary (tract) infections; Z91.198 Patient's noncompliance with other medical treatment and regimen for other reason; Z20.822 Contact with and (suspected) exposure to COVID-19
CPT/HCPCS: 36415; 36569; 71045; 71250; 76882; 80048; 80053; 81001; 82550; 82553; 82948; 83036; 83605; 83735; 83880; 84100; 84132; 84443; 84484; 85025; 87040; 87071; 87205; 93005; 93306; 93312; 93320; 93325; 93925; 93970; 94640; 94799; 99252; 99284; J0696; J1940; J2250; J2543; J3475; J7030; J7050

== ENCOUNTER 2023-05-13 15:33 | Inpatient (IN) | payer MEDICARE ==
[~2023-05-13] VITALS: Ht 177.8 cm; Wt 118.8 kg
[~2023-05-13 15:33] MED LIST changes: +ALBUTEROL2.5 MG/3 M NEB; +BREO ELLIPTA 21 EACH INH; +HYDROXYZIN10 MG/5 ML PO; +INCRUSE ELLI62.5 MCG INH; +LEVOCETIRIZINE D5 MG PO; +METOPROLOL TART25 MG PO; +MONTELUKAST SOD10 MG PO; +POTASSIUM CHLO10 ME1 PO; +ZINC SULFATE50 MG PO
[2023-05-13] MEDS ORDERED: Vancomycin IV 2 GM in SODIUM CHLORIDE 0.9% 500ML 500 ML IV ONE (16:00)
[2023-05-13 16:17] LABS: BASOPHILS # (AUTO) 0.1 (0.0-0.1); BASOPHILS % 0.7 % (0.0-1.0); EOSINOPHILS # (AUTO) 0.1 (0.0-0.4); HEMATOCRIT 37.5 % (38.2-49.6); HEMOGLOBIN 12.2 g/dL (14.0-18.0); LYMPHOCYTES # (AUTO) 1.4 (1.0-3.2); LYMPHOCYTES % 20.8 % (18.0-39.1); MEAN CORPUSCULAR HEMOGLOBIN 29.1 pg (28-32); MEAN CORPUSCULAR HGB CONC 32.5 g/dL (31-35); MEAN CORPUSCULAR VOLUME 89.5 fL (81-99); MONOCYTES # (AUTO) 0.5 (0.2-0.8); MONOCYTES % 6.9 % (4.4-11.3); NEUTROPHILS # (AUTO) 4.8 (2.1-6.9); NEUTROPHILS % 69.6 % (38.7-80.0); PLATELET COUNT 268 x10e3/uL (140-360); RED BLOOD COUNT 4.19 x10e6/uL (4.3-5.7); RED CELL DISTRIBUTION WIDTH 17.1 % (11.7-14.4); WHITE BLOOD COUNT 6.86 x10e3/uL (4.8-10.8)
[2023-05-13 16:31] LABS: INR 1.09; PROTHROMBIN TIME 14.3 seconds (11.9-14.5)
[2023-05-13 16:32] LABS: PARTIAL THROMBOPLASTIN TIME 32.8 seconds (23.8-35.5)
[2023-05-13 16:35] LABS: ALBUMIN 3.1 g/dL (3.5-5.0); ALBUMIN/GLOBULIN RATIO 0.9 (0.8-2.0); ANION GAP 14.4 mmol/L (8-16); CREATININE, SERUM 0.88 mg/dL (0.72-1.25); POTASSIUM 4.4 mmol/L (3.5-5.1)
[2023-05-13] MEDS ORDERED: TRAMADOL HCL 50 MG TAB PO PRN (17:00)
[2023-05-13] MEDS ORDERED: SODIUM CHLORIDE FLUSH 10 ML SYR INJ PRN (17:00)
[2023-05-13] MEDS ORDERED: ONDANSETRON HCL INJ 2MG/ML 2ML 2 MG/ML VIAL IV PRN (17:00)
[2023-05-13 20:00] VITALS: BP 138/81; PULSE 64; RESP 18; TEMP 98.2; O2SAT 100
[2023-05-13] MEDS ORDERED: ZYRTEC10 MG PO (21:29)
[2023-05-13] MEDS ORDERED: IPRATROPIU0.2 MG/1 M INH (21:29)
[2023-05-13] MEDS ORDERED: AMIODARONE HCL200 MG PO (21:29)
[2023-05-13 21:35] VITALS: BP 138/81; PULSE 64; RESP 18; TEMP 98.2; O2SAT 98
[2023-05-13] MEDS: ALBUTEROL/IPRATROPIUM 3 ML NEB NEB SCH (23:00)
[2023-05-13] MEDS: APIXABAN 5 MG TABLET PO SCH (23:23)
[2023-05-14] VITALS (13 sets, daily range): BP systolic 117–139; BP diastolic 61–92; PULSE 54–87; RESP 18–20; TEMP 97.3–98.6; O2SAT 97–100
[2023-05-14] MEDS: ALBUTEROL/IPRATROPIUM 3 ML NEB NEB SCH ×5 (03:43→19:05)
[2023-05-14 06:35] LABS: BASOPHILS % 0.7 % (0.0-1.0); EOSINOPHILS # (AUTO) 0.1 (0.0-0.4); EOSINOPHILS % 1.6 % (0.0-6.0); HEMATOCRIT 36.7 % (38.2-49.6); HEMOGLOBIN 11.9 g/dL (14.0-18.0); LYMPHOCYTES # (AUTO) 1.3 (1.0-3.2); LYMPHOCYTES % 23.6 % (18.0-39.1); MEAN CORPUSCULAR HEMOGLOBIN 29.1 pg (28-32); MEAN CORPUSCULAR HGB CONC 32.4 g/dL (31-35); MEAN CORPUSCULAR VOLUME 89.7 fL (81-99); MONOCYTES # (AUTO) 0.3 (0.2-0.8); MONOCYTES % 5.1 % (4.4-11.3); NEUTROPHILS # (AUTO) 3.9 (2.1-6.9); NEUTROPHILS % 68.3 % (38.7-80.0); PLATELET COUNT 266 x10e3/uL (140-360); RED BLOOD COUNT 4.09 x10e6/uL (4.3-5.7); RED CELL DISTRIBUTION WIDTH 17.2 % (11.7-14.4); WHITE BLOOD COUNT 5.68 x10e3/uL (4.8-10.8)
[2023-05-14 07:08] LABS: ANION GAP 12.5 mmol/L (8-16); CALCIUM 8.6 mg/dL (8.4-10.2); CREATININE, SERUM 0.84 mg/dL (0.72-1.25); POTASSIUM 4.5 mmol/L (3.5-5.1)
[2023-05-14] MEDS: APIXABAN 5 MG TABLET PO SCH ×2 (08:50→16:42)
[2023-05-14] MEDS ORDERED: ALBUTEROL/IPRATROPIUM 3 ML NEB NEB PRN (10:00)
[2023-05-14] MEDS: FUROSEMIDE INJ 10 MG/ML 4 ML VIAL IV SCH ×2 (11:28→12:00)
[2023-05-14] MEDS: ALLOPURINOL 100 MG TAB PO SCH (11:29)
[2023-05-14] MEDS: Vancomycin IV 1 GM in SODIUM CHLORIDE 0.9% 250ML 250 ML IV SCH ×2 (11:29→22:44)
[2023-05-14] MEDS: SPIRONOLACTONE 25 MG TAB PO SCH (11:30)
[2023-05-14] MEDS: ZINC SULFATE 220 MG CAP PO SCH (11:30)
[2023-05-14] MEDS: ASPIRIN 81 MG CHEW TAB PO SCH (11:30)
[2023-05-14] MEDS: TAMSULOSIN HCL 0.4 MG CAP PO SCH (11:30)
[2023-05-14] MEDS: AMIODARONE HCL 200 MG TAB PO SCH (11:30)
[2023-05-14] MEDS: NEOMYCIN/POLYMYXIN/BACITRACIN 15 GM TUBE TOP SCH (15:07)
[2023-05-14] MEDS: MAGNESIUM OXIDE 400 MG TAB PO SCH (16:42)
[2023-05-14] MEDS: METOPROLOL TARTRATE 25 MG TAB PO SCH (16:43)
[2023-05-14] MEDS: POTASSIUM CHLORIDE 10MEQ EA PO SCH (16:43)
[2023-05-14] MEDS: GABAPENTIN 300 MG CAP PO SCH (16:48)
[2023-05-14] MEDS: PREDNISONE 10 MG TAB PO SCH (17:26)
[2023-05-14] MEDS ORDERED: LEVOCETIRIZINE DIHYDROCHLORIDE 10 MG PO SCH (21:00)
[2023-05-14] MEDS: ATORVASTATIN 20 MG TAB PO SCH (21:24)
[2023-05-15] VITALS (8 sets, daily range): BP systolic 105–124; BP diastolic 61–85; PULSE 50–95; RESP 19–21; TEMP 97.7–98.1; O2SAT 96–100
[2023-05-15] MEDS: ALBUTEROL/IPRATROPIUM 3 ML NEB NEB SCH ×4 (00:01→20:35)
[2023-05-15 05:31] LABS: BASOPHILS % 0.3 % (0.0-1.0); EOSINOPHILS % 0.3 % (0.0-6.0); HEMOGLOBIN 11.4 g/dL (14.0-18.0); LYMPHOCYTES # (AUTO) 1.3 (1.0-3.2); MEAN CORPUSCULAR HGB CONC 32.6 g/dL (31-35); MEAN CORPUSCULAR VOLUME 89.1 fL (81-99); MONOCYTES # (AUTO) 0.3 (0.2-0.8); MONOCYTES % 4.4 % (4.4-11.3); NEUTROPHILS # (AUTO) 4.7 (2.1-6.9); NEUTROPHILS % 73.5 % (38.7-80.0); PLATELET COUNT 247 x10e3/uL (140-360); RED BLOOD COUNT 3.93 x10e6/uL (4.3-5.7); RED CELL DISTRIBUTION WIDTH 16.8 % (11.7-14.4); WHITE BLOOD COUNT 6.33 x10e3/uL (4.8-10.8)
[2023-05-15 05:57] LABS: ANION GAP 11.6 mmol/L (8-16); CALCIUM 8.5 mg/dL (8.4-10.2); CREATININE, SERUM 0.9 mg/dL (0.72-1.25); POTASSIUM 4.6 mmol/L (3.5-5.1)
[2023-05-15] MEDS: Fluticasone/Vilanterol (Breo Ellipta 200-25 Mcg INH) INH SCH (06:00)
[2023-05-15] MEDS: APIXABAN 5 MG TABLET PO SCH ×2 (08:42→18:01)
[2023-05-15] MEDS: FUROSEMIDE INJ 10 MG/ML 4 ML VIAL IV SCH ×2 (08:42→12:47)
[2023-05-15] MEDS: ASPIRIN 81 MG CHEW TAB PO SCH (08:43)
[2023-05-15] MEDS: POTASSIUM CHLORIDE 10MEQ EA PO SCH ×2 (08:43→18:02)
[2023-05-15] MEDS: MONTELUKAST SODIUM 10 MG TAB PO SCH (08:43)
[2023-05-15] MEDS: METOPROLOL TARTRATE 25 MG TAB PO SCH ×2 (08:43→18:02)
[2023-05-15] MEDS: TAMSULOSIN HCL 0.4 MG CAP PO SCH (08:44)
[2023-05-15] MEDS: PREDNISONE 10 MG TAB PO SCH (08:44)
[2023-05-15] MEDS: GABAPENTIN 300 MG CAP PO SCH ×2 (08:44→18:01)
[2023-05-15] MEDS: SPIRONOLACTONE 25 MG TAB PO SCH (08:44)
[2023-05-15] MEDS: MAGNESIUM OXIDE 400 MG TAB PO SCH ×2 (08:44→18:01)
[2023-05-15] MEDS: ZINC SULFATE 220 MG CAP PO SCH (08:45)
[2023-05-15] MEDS: AMIODARONE HCL 200 MG TAB PO SCH (08:45)
[2023-05-15] MEDS: ALLOPURINOL 100 MG TAB PO SCH (08:45)
[2023-05-15] MEDS: NEOMYCIN/POLYMYXIN/BACITRACIN 15 GM TUBE TOP SCH (08:57)
[2023-05-15] MEDS: Vancomycin IV 1 GM in SODIUM CHLORIDE 0.9% 250ML 250 ML IV SCH ×2 (11:00→22:01)
[2023-05-15] MEDS ORDERED: ONDANSETRON HCL 4 MG ORAL DISINTEGRATING TAB PO PRN (13:00)
[2023-05-15] MEDS: ATORVASTATIN 20 MG TAB PO SCH (21:56)
[2023-05-16] VITALS (12 sets, daily range): BP systolic 110–147; BP diastolic 68–77; PULSE 55–95; RESP 18–20; TEMP 97–98.1; O2SAT 94–100
[2023-05-16] MEDS: ALBUTEROL/IPRATROPIUM 3 ML NEB NEB SCH ×4 (00:44→19:29)
[2023-05-16] MEDS: Fluticasone/Vilanterol (Breo Ellipta 200-25 Mcg INH) INH SCH (06:00)
[2023-05-16] MEDS: FUROSEMIDE INJ 10 MG/ML 4 ML VIAL IV SCH ×2 (08:57→12:43)
[2023-05-16] MEDS: ASPIRIN 81 MG CHEW TAB PO SCH (09:00)
[2023-05-16] MEDS: APIXABAN 5 MG TABLET PO SCH ×2 (09:00→17:54)
[2023-05-16] MEDS: ZYRTEC 10 MG PO SCH (09:00)
[2023-05-16] MEDS: ALLOPURINOL 100 MG TAB PO SCH (09:00)
[2023-05-16] MEDS: ZINC SULFATE 220 MG CAP PO SCH (09:00)
[2023-05-16] MEDS: POTASSIUM CHLORIDE 10MEQ EA PO SCH ×2 (09:01→17:53)
[2023-05-16] MEDS: MAGNESIUM OXIDE 400 MG TAB PO SCH ×2 (09:01→17:54)
[2023-05-16] MEDS: METOPROLOL TARTRATE 25 MG TAB PO SCH ×2 (09:01→17:54)
[2023-05-16] MEDS: PREDNISONE 10 MG TAB PO SCH (09:01)
[2023-05-16] MEDS: MONTELUKAST SODIUM 10 MG TAB PO SCH (09:02)
[2023-05-16] MEDS: GABAPENTIN 300 MG CAP PO SCH ×2 (09:02→17:54)
[2023-05-16] MEDS: SPIRONOLACTONE 25 MG TAB PO SCH (09:02)
[2023-05-16] MEDS: AMIODARONE HCL 200 MG TAB PO SCH (09:02)
[2023-05-16] MEDS: TAMSULOSIN HCL 0.4 MG CAP PO SCH (09:02)
[2023-05-16] MEDS: NEOMYCIN/POLYMYXIN/BACITRACIN 15 GM TUBE TOP SCH (09:03)
[2023-05-16] MEDS: COLLAGENASE 5 GM TUBE TP SCH (09:20)
[2023-05-16] MEDS: Vancomycin IV 1 GM in SODIUM CHLORIDE 0.9% 250ML 250 ML IV SCH ×3 (12:44)
[2023-05-16] MEDS: ATORVASTATIN 20 MG TAB PO SCH (19:50)
[2023-05-17] VITALS (12 sets, daily range): BP systolic 111–154; BP diastolic 65–86; PULSE 44–67; RESP 18–21; TEMP 97–98.5; O2SAT 94–100
[2023-05-17] MEDS: ALBUTEROL/IPRATROPIUM 3 ML NEB NEB SCH ×4 (00:35→19:59)
[2023-05-17] MEDS: Fluticasone/Vilanterol (Breo Ellipta 200-25 Mcg INH) INH SCH (06:00)
[2023-05-17] MEDS: ZINC SULFATE 220 MG CAP PO SCH (08:43)
[2023-05-17] MEDS: MONTELUKAST SODIUM 10 MG TAB PO SCH (08:43)
[2023-05-17] MEDS: FUROSEMIDE INJ 10 MG/ML 4 ML VIAL IV SCH ×2 (08:43→12:59)
[2023-05-17] MEDS: SPIRONOLACTONE 25 MG TAB PO SCH (08:44)
[2023-05-17] MEDS: APIXABAN 5 MG TABLET PO SCH ×2 (08:44→16:03)
[2023-05-17] MEDS: MAGNESIUM OXIDE 400 MG TAB PO SCH ×2 (08:44→16:02)
[2023-05-17] MEDS: ALLOPURINOL 100 MG TAB PO SCH (08:45)
[2023-05-17] MEDS: GABAPENTIN 300 MG CAP PO SCH ×2 (08:45→16:02)
[2023-05-17] MEDS: AMIODARONE HCL 200 MG TAB PO SCH (08:45)
[2023-05-17] MEDS: POTASSIUM CHLORIDE 10MEQ EA PO SCH ×2 (08:46→16:03)
[2023-05-17] MEDS: TAMSULOSIN HCL 0.4 MG CAP PO SCH (08:46)
[2023-05-17] MEDS: PREDNISONE 10 MG TAB PO SCH (08:46)
[2023-05-17] MEDS: ASPIRIN 81 MG CHEW TAB PO SCH (08:46)
[2023-05-17] MEDS: ZYRTEC 10 MG PO SCH (08:48)
[2023-05-17] MEDS: METOPROLOL TARTRATE 25 MG TAB PO SCH ×2 (09:00→16:03)
[2023-05-17] MEDS: NEOMYCIN/POLYMYXIN/BACITRACIN 15 GM TUBE TOP SCH (09:00)
[2023-05-17] MEDS: CEFTRIAXONE 2 GM in SODIUM CHLORIDE 0.9% 100 ML IV SCH (12:59)
[2023-05-17] MEDS: COLLAGENASE 5 GM TUBE TP SCH (14:37)
[2023-05-17] MEDS: ATORVASTATIN 20 MG TAB PO SCH (21:11)
[2023-05-18] VITALS (7 sets, daily range): BP systolic 101–139; BP diastolic 50–74; PULSE 50–71; RESP 18–20; TEMP 97.8–98.1; O2SAT 93–98
[2023-05-18] MEDS: ALBUTEROL/IPRATROPIUM 3 ML NEB NEB SCH ×2 (00:38→07:29)
[2023-05-18 06:04] LABS: BASOPHILS # (AUTO) 0.1 (0.0-0.1); BASOPHILS % 0.7 % (0.0-1.0); EOSINOPHILS # (AUTO) 0.1 (0.0-0.4); EOSINOPHILS % 1.2 % (0.0-6.0); HEMATOCRIT 36.8 % (38.2-49.6); HEMOGLOBIN 11.9 g/dL (14.0-18.0); LYMPHOCYTES # (AUTO) 1.7 (1.0-3.2); LYMPHOCYTES % 19.6 % (18.0-39.1); MEAN CORPUSCULAR HGB CONC 32.3 g/dL (31-35); MEAN CORPUSCULAR VOLUME 89.5 fL (81-99); MONOCYTES # (AUTO) 0.7 (0.2-0.8); MONOCYTES % 7.9 % (4.4-11.3); NEUTROPHILS # (AUTO) 5.9 (2.1-6.9); NEUTROPHILS % 69.9 % (38.7-80.0); PLATELET COUNT 261 x10e3/uL (140-360); RED BLOOD COUNT 4.11 x10e6/uL (4.3-5.7)
[2023-05-18 06:31] LABS: ANION GAP 13.2 mmol/L (8-16); CALCIUM 8.9 mg/dL (8.4-10.2); CREATININE, SERUM 1.02 mg/dL (0.72-1.25); POTASSIUM 4.2 mmol/L (3.5-5.1)
[2023-05-18] MEDS ORDERED: METOPROLOL TARTRATE 25 MG TAB PO SCH (09:00)
[2023-05-18] MEDS: GABAPENTIN 300 MG CAP PO SCH (09:25)
[2023-05-18] MEDS: PREDNISONE 10 MG TAB PO SCH (09:25)
[2023-05-18] MEDS: AMIODARONE HCL 200 MG TAB PO SCH (09:25)
[2023-05-18] MEDS: APIXABAN 5 MG TABLET PO SCH (09:26)
[2023-05-18] MEDS: ASPIRIN 81 MG CHEW TAB PO SCH (09:26)
[2023-05-18] MEDS: POTASSIUM CHLORIDE 10MEQ EA PO SCH (09:26)
[2023-05-18] MEDS: MONTELUKAST SODIUM 10 MG TAB PO SCH (09:27)
[2023-05-18] MEDS: MAGNESIUM OXIDE 400 MG TAB PO SCH (09:27)
[2023-05-18] MEDS: ALLOPURINOL 100 MG TAB PO SCH (09:27)
[2023-05-18] MEDS: TAMSULOSIN HCL 0.4 MG CAP PO SCH (09:27)
[2023-05-18] MEDS: ZINC SULFATE 220 MG CAP PO SCH (09:27)
[2023-05-18] MEDS: SPIRONOLACTONE 25 MG TAB PO SCH (09:27)
[2023-05-18] MEDS: FUROSEMIDE INJ 10 MG/ML 4 ML VIAL IV SCH ×2 (09:28→11:47)
[2023-05-18] MEDS ORDERED: FUROSEMIDE40 MG PO ×2 (09:37→13:09)
[2023-05-18] MEDS: CEFTRIAXONE 2 GM in SODIUM CHLORIDE 0.9% 100 ML IV SCH (11:44)
[2023-05-18] MEDS: NEOMYCIN/POLYMYXIN/BACITRACIN 15 GM TUBE TOP SCH (12:08)
[2023-05-18] MEDS: COLLAGENASE 5 GM TUBE TP SCH (12:09)
[2023-05-19] MEDS ORDERED: FUROSEMIDE 40 MG TAB PO SCH (08:00)
== END 2023-05-18 14:18 | disposition home or self-care (01) | DRG 602 ==
LOC: ER 15:42 → ERHOLD 17:00 → MED/SURG2 18:07 → OBSVTOIN 05-14 09:53
PROVIDERS: ADMIT Internal Medicine; ATTEND Internal Medicine
PROC: 05HC33Z Insertion of Infusion Device into Left Basilic Vein, Percutaneous Approach (ICD-10-PCS; principal; 2023-05-17)
DX: L03.115 Cellulitis of right lower limb (principal); I50.23 Acute on chronic systolic (congestive) heart failure; L97.818 Non-pressure chronic ulcer of other part of right lower leg with other specified severity; J44.1 Chronic obstructive pulmonary disease with (acute) exacerbation; I13.0 Hypertensive heart and chronic kidney disease with heart failure and stage 1 through stage 4 chronic kidney disease, or unspecified chronic kidney disease; I48.20 Chronic atrial fibrillation, unspecified; E11.622 Type 2 diabetes mellitus with other skin ulcer; I87.8 Other specified disorders of veins; N18.9 Chronic kidney disease, unspecified; E78.5 Hyperlipidemia, unspecified; E66.01 Morbid (severe) obesity due to excess calories; I89.0 Lymphedema, not elsewhere classified; I25.10 Atherosclerotic heart disease of native coronary artery without angina pectoris; M19.90 Unspecified osteoarthritis, unspecified site; M54.9 Dorsalgia, unspecified; M10.9 Gout, unspecified; Z87.01 Personal history of pneumonia (recurrent); Z87.891 Personal history of nicotine dependence; Z68.37 Body mass index [BMI] 37.0-37.9, adult; Z95.5 Presence of coronary angioplasty implant and graft; Z91.198 Patient's noncompliance with other medical treatment and regimen for other reason; Z20.822 Contact with and (suspected) exposure to COVID-19
CPT/HCPCS: 36415; 36568; 80048; 80053; 80202; 82948; 85025; 85610; 85730; 87040; 94640; 94799; 99252; 99284; G0378; J0696; J1940; J2543; J7040; J7050; J7512; U0002

== ENCOUNTER 2024-07-10 14:29 | Inpatient (IN) | payer MEDICARE ==
[~2024-07-10] VITALS: Ht 177.8 cm; Wt 115.7 kg
[~2024-07-10 14:29] MED LIST changes: +AMIODARONE HCL200 MG PO; +CEPHALEXIN500 MG PO; +CLOTRIMAZOLE15 GM TOP; +FINASTERIDE5 MG PO; +IPRATROPIU0.2 MG/1 M INH; +VITAMIN D250 MCG PO; +ZYRTEC10 MG PO
[2024-07-10 15:02] VITALS: TEMP 98.1
[2024-07-10 15:37] LABS: BASOPHILS # (AUTO) 0.1 (0.0-0.1); BASOPHILS % 0.7 % (0.0-1.0); EOSINOPHILS # (AUTO) 0.2 (0.0-0.4); EOSINOPHILS % 2.2 % (0.0-6.0); HEMATOCRIT 43.5 % (38.2-49.6); HEMOGLOBIN 13.5 g/dL (14.0-18.0); LYMPHOCYTES % 15.1 % (18.0-39.1); MEAN CORPUSCULAR HEMOGLOBIN 30.3 pg (28-32); MEAN CORPUSCULAR VOLUME 97.5 fL (81-99); MONOCYTES # (AUTO) 0.8 (0.2-0.8); MONOCYTES % 11.6 % (4.4-11.3); NEUTROPHILS # (AUTO) 4.8 (2.1-6.9); NEUTROPHILS % 69.8 % (38.7-80.0); PLATELET COUNT 207 x10e3/uL (140-360); RED BLOOD COUNT 4.46 x10e6/uL (4.3-5.7); RED CELL DISTRIBUTION WIDTH 15.1 % (11.7-14.4); WHITE BLOOD COUNT 6.88 x10e3/uL (4.8-10.8)
[2024-07-10 15:55] LABS: ALBUMIN 3.5 g/dL (3.5-5.0); ALBUMIN/GLOBULIN RATIO 1.1 (0.8-2.0); ANION GAP 15.1 mmol/L (8-16); BILIRUBIN,TOTAL 0.7 mg/dL (0.2-1.2); CALCIUM 9.3 mg/dL (8.4-10.2); CREATININE, SERUM 0.9 mg/dL (0.72-1.25); POTASSIUM 4.1 mmol/L (3.5-5.1); TOTAL PROTEIN 6.8 g/dL (6.5-8.1)
[2024-07-10 16:01] LABS: INR 0.94; PROTHROMBIN TIME 13.1 seconds (11.9-14.5); TROPONIN I 0.053 ng/mL (0-0.300)
[2024-07-10 16:02] LABS: PARTIAL THROMBOPLASTIN TIME 27.1 seconds (23.8-35.5)
[2024-07-10] MEDS ORDERED: INCRUSE ELLI62.5 MCG (16:06)
[2024-07-10] MEDS ORDERED: AZO CRANBERRY250 MG (16:06)
[2024-07-10] MEDS ORDERED: [UNRECOGNIZED DRUG - OTHER] PO (16:06)
[2024-07-10] MEDS ORDERED: DOXYCYCLINE HY100 MG PO (16:06)
[2024-07-10 16:29] VITALS: PULSE 68; RESP 18
[2024-07-10] MEDS: VANCOMYCIN 1.25GM/250 ML (PEG) 250 ML IV ONE (17:04)
[2024-07-10] MEDS ORDERED: ST. JOSEPH ASPI81 M2 PO (17:21)
[2024-07-10] MEDS ORDERED: ONDANSETRON HCL INJ 2MG/ML 2ML 2 MG/ML VIAL IV PRN (17:45)
[2024-07-10 21:12] VITALS: BP 126/77; PULSE 60; RESP 20; TEMP 98.3; O2SAT 98
[2024-07-10 21:14] VITALS: BP 126/77; PULSE 60; RESP 20; TEMP 98.3; O2SAT 98
[2024-07-10 21:40] VITALS: PULSE 61; RESP 20; O2SAT 94
[2024-07-10] MEDS: ALBUTEROL/IPRATROPIUM 3 ML NEB NEB PRN (21:46)
[2024-07-10 21:49] VITALS: PULSE 60; RESP 20; O2SAT 94
[2024-07-11] VITALS (14 sets, daily range): BP systolic 123–154; BP diastolic 60–81; PULSE 60–119; RESP 18–22; TEMP 97.9–98.9; O2SAT 95–100
[2024-07-11] MEDS ORDERED: VANCOMYCIN 1.25GM/250 ML (PEG) 250 ML IV SCH ×2 (03:00→08:00)
[2024-07-11 06:26] LABS: BASOPHILS # (AUTO) 0.1 (0.0-0.1); BASOPHILS % 0.7 % (0.0-1.0); EOSINOPHILS # (AUTO) 0.2 (0.0-0.4); EOSINOPHILS % 2.3 % (0.0-6.0); LYMPHOCYTES # (AUTO) 1.2 (1.0-3.2); LYMPHOCYTES % 12.9 % (18.0-39.1); MEAN CORPUSCULAR HEMOGLOBIN 30.3 pg (28-32); MEAN CORPUSCULAR VOLUME 97.9 fL (81-99); MONOCYTES % 11.1 % (4.4-11.3); NEUTROPHILS # (AUTO) 6.7 (2.1-6.9); NEUTROPHILS % 72.7 % (38.7-80.0); PLATELET COUNT 204 x10e3/uL (140-360); RED BLOOD COUNT 4.29 x10e6/uL (4.3-5.7); RED CELL DISTRIBUTION WIDTH 15.3 % (11.7-14.4); WHITE BLOOD COUNT 9.17 x10e3/uL (4.8-10.8)
[2024-07-11 06:47] LABS: ALBUMIN 3.4 g/dL (3.5-5.0); ALBUMIN/GLOBULIN RATIO 1.1 (0.8-2.0); ANION GAP 16.2 mmol/L (8-16); BILIRUBIN,TOTAL 0.8 mg/dL (0.2-1.2); CREATININE, SERUM 0.94 mg/dL (0.72-1.25); POTASSIUM 4.2 mmol/L (3.5-5.1); TOTAL PROTEIN 6.5 g/dL (6.5-8.1)
[2024-07-11 07:05] LABS: TROPONIN I 0.055 ng/mL (0-0.300)
[2024-07-11] MEDS: ASPIRIN 81 MG ENTERIC COATED PO SCH (08:52)
[2024-07-11] MEDS ORDERED: DEXTROSE 50% SYRINGE 50 ML IV PRN (09:45)
[2024-07-11] MEDS: VANCOMYCIN 1.25GM/250 ML (PEG) 250 ML IV SCH (09:49)
[2024-07-11] MEDS: FUROSEMIDE INJ 10 MG/ML 4 ML VIAL IV SCH (11:12)
[2024-07-11] MEDS: INSULIN LISPRO 100 UNIT/1 ML 3ML VIAL SQ SCH (11:12)
[2024-07-11] MEDS: ALBUTEROL/IPRATROPIUM 3 ML NEB NEB SCH (11:16)
[2024-07-11 14:04] LABS: TROPONIN I 0.044 ng/mL (0-0.300)
[2024-07-11] MEDS: TAMSULOSIN HCL 0.4 MG CAP PO SCH (16:09)
[2024-07-11] MEDS: MONTELUKAST SODIUM 10 MG TAB PO SCH (20:58)
[2024-07-11] MEDS: LORATADINE 10 MG TAB PO SCH (20:58)
[2024-07-11] MEDS: ATORVASTATIN 20 MG TAB PO SCH (20:58)
[2024-07-12] VITALS (12 sets, daily range): BP systolic 103–132; BP diastolic 56–81; PULSE 65–74; RESP 18–20; TEMP 98.1–98.5; O2SAT 93–100
[2024-07-12 05:44] LABS: BASOPHILS # (AUTO) 0.1 (0.0-0.1); EOSINOPHILS # (AUTO) 0.2 (0.0-0.4); EOSINOPHILS % 3.5 % (0.0-6.0); HEMOGLOBIN 12.1 g/dL (14.0-18.0); LYMPHOCYTES # (AUTO) 1.3 (1.0-3.2); LYMPHOCYTES % 20.4 % (18.0-39.1); MEAN CORPUSCULAR HEMOGLOBIN 30.1 pg (28-32); MEAN CORPUSCULAR HGB CONC 32.7 g/dL (31-35); MONOCYTES # (AUTO) 0.7 (0.2-0.8); MONOCYTES % 11.2 % (4.4-11.3); NEUTROPHILS % 63.6 % (38.7-80.0); PLATELET COUNT 200 x10e3/uL (140-360); RED BLOOD COUNT 4.02 x10e6/uL (4.3-5.7); RED CELL DISTRIBUTION WIDTH 15.3 % (11.7-14.4); WHITE BLOOD COUNT 6.24 x10e3/uL (4.8-10.8)
[2024-07-12 06:05] LABS: ANION GAP 13.6 mmol/L (8-16); CALCIUM 8.8 mg/dL (8.4-10.2); CREATININE, SERUM 0.92 mg/dL (0.72-1.25); POTASSIUM 3.6 mmol/L (3.5-5.1)
[2024-07-12] MEDS: ALLOPURINOL 300 MG TAB PO SCH (08:11)
[2024-07-12] MEDS: SPIRONOLACTONE 25 MG TAB PO SCH (08:11)
[2024-07-12] MEDS: FINASTERIDE 5 MG TAB PO SCH (08:11)
[2024-07-13] VITALS (13 sets, daily range): BP systolic 115–141; BP diastolic 64–79; PULSE 56–82; RESP 17–20; TEMP 97.6–99.1; O2SAT 94–100
[2024-07-13] MEDS: ENOXAPARIN SOD INJ 40 MG/0.4 ML SYR SC SCH (16:51)
[2024-07-14] VITALS (13 sets, daily range): BP systolic 115–132; BP diastolic 64–77; PULSE 59–116; RESP 17–20; TEMP 97.8–98.4; O2SAT 94–100
[2024-07-14] MEDS: VANCOMYCIN 1.25GM/250 ML (PEG) 250 ML IV SCH (12:38)
[2024-07-14] MEDS: SPIRONOLACTONE 25 MG TAB PO SCH (16:52)
[2024-07-15] VITALS (14 sets, daily range): BP systolic 114–149; BP diastolic 58–84; PULSE 52–74; RESP 18–20; TEMP 97.5–98.3; O2SAT 94–99
[2024-07-15 05:25] LABS: BASOPHILS # (AUTO) 0.1 (0.0-0.1); EOSINOPHILS # (AUTO) 0.2 (0.0-0.4); EOSINOPHILS % 3.2 % (0.0-6.0); HEMATOCRIT 39.1 % (38.2-49.6); LYMPHOCYTES # (AUTO) 1.2 (1.0-3.2); LYMPHOCYTES % 20.4 % (18.0-39.1); MEAN CORPUSCULAR HEMOGLOBIN 30.2 pg (28-32); MEAN CORPUSCULAR HGB CONC 33.2 g/dL (31-35); MEAN CORPUSCULAR VOLUME 90.9 fL (81-99); MONOCYTES # (AUTO) 0.7 (0.2-0.8); MONOCYTES % 12.4 % (4.4-11.3); NEUTROPHILS # (AUTO) 3.7 (2.1-6.9); NEUTROPHILS % 62.7 % (38.7-80.0); PLATELET COUNT 214 x10e3/uL (140-360); RED CELL DISTRIBUTION WIDTH 15.1 % (11.7-14.4); WHITE BLOOD COUNT 5.88 x10e3/uL (4.8-10.8)
[2024-07-15 05:58] LABS: ANION GAP 14.7 mmol/L (8-16); CALCIUM 9.5 mg/dL (8.4-10.2); CREATININE, SERUM 0.94 mg/dL (0.72-1.25); POTASSIUM 3.7 mmol/L (3.5-5.1)
[2024-07-15] MEDS: SODIUM CHLORIDE 0.9% 250ML 250 ML ONE ×2 (12:42→12:52)
[2024-07-15] MEDS ORDERED: FUROSEMIDE INJ 10 MG/ML 4 ML VIAL IV SCH (21:00)
[2024-07-16] VITALS (13 sets, daily range): BP systolic 120–145; BP diastolic 70–77; PULSE 56–74; RESP 16–23; TEMP 97.4–98.5; O2SAT 93–100
[2024-07-16] MEDS: ALBUTEROL/IPRATROPIUM 3 ML NEB NEB SCH (11:24)
[2024-07-16] MEDS: VANCOMYCIN 1.25GM/250 ML (PEG) 250 ML IV SCH (14:52)
[2024-07-16] MEDS: LINEZOLID 600 MG/D5W 300ML 300 ML IV SCH (17:41)
[2024-07-16] MEDS: METOPROLOL TARTRATE 50 MG TAB PO SCH (18:44)
[2024-07-17] VITALS (13 sets, daily range): BP systolic 118–142; BP diastolic 71–78; PULSE 55–74; RESP 17–23; TEMP 97.6–98.7; O2SAT 95–99
[2024-07-17 06:04] LABS: BASOPHILS # (AUTO) 0.1 (0.0-0.1); BASOPHILS % 0.8 % (0.0-1.0); EOSINOPHILS # (AUTO) 0.3 (0.0-0.4); EOSINOPHILS % 3.5 % (0.0-6.0); HEMOGLOBIN 12.9 g/dL (14.0-18.0); LYMPHOCYTES # (AUTO) 1.5 (1.0-3.2); LYMPHOCYTES % 20.2 % (18.0-39.1); MEAN CORPUSCULAR HEMOGLOBIN 29.9 pg (28-32); MEAN CORPUSCULAR HGB CONC 31.5 g/dL (31-35); MEAN CORPUSCULAR VOLUME 95.1 fL (81-99); MONOCYTES # (AUTO) 0.7 (0.2-0.8); MONOCYTES % 9.3 % (4.4-11.3); NEUTROPHILS # (AUTO) 4.8 (2.1-6.9); NEUTROPHILS % 65.9 % (38.7-80.0); PLATELET COUNT 217 x10e3/uL (140-360); RED BLOOD COUNT 4.31 x10e6/uL (4.3-5.7); RED CELL DISTRIBUTION WIDTH 14.6 % (11.7-14.4); WHITE BLOOD COUNT 7.22 x10e3/uL (4.8-10.8)
[2024-07-17 06:40] LABS: ANION GAP 15.9 mmol/L (8-16); CALCIUM 9.6 mg/dL (8.4-10.2); CREATININE, SERUM 0.99 mg/dL (0.72-1.25); POTASSIUM 3.9 mmol/L (3.5-5.1)
[2024-07-17 07:06] LABS: MAGNESIUM 1.9 MG/DL (1.3-2.1)
[2024-07-17 07:29] LABS: FREE T4 (FREE THYROXINE) 1.17 ng/dL (0.8-1.8); THYROID STIMULATING HORMONE 0.949 uIU/mL (0.350-4.940)
[2024-07-17] MEDS: MAGNESIUM OXIDE 400 MG TAB PO SCH (09:58)
[2024-07-18] VITALS (14 sets, daily range): BP systolic 115–128; BP diastolic 61–82; PULSE 50–68; RESP 18–20; TEMP 97.4–98.1; O2SAT 95–100
[2024-07-18] MEDS: SODIUM CHLORIDE 0.9% 250ML 250 ML ONE (16:34)
[2024-07-19] VITALS (12 sets, daily range): BP systolic 109–126; BP diastolic 55–75; PULSE 51–89; RESP 18–21; TEMP 97.6–98.3; O2SAT 96–100
[2024-07-20] VITALS (8 sets, daily range): BP systolic 105–128; BP diastolic 61–89; PULSE 52–84; RESP 18–22; TEMP 97.1–98; O2SAT 96–98
[2024-07-20 07:04] LABS: BASOPHILS # (AUTO) 0.1 (0.0-0.1); BASOPHILS % 0.7 % (0.0-1.0); EOSINOPHILS # (AUTO) 0.2 (0.0-0.4); EOSINOPHILS % 2.7 % (0.0-6.0); HEMATOCRIT 39.8 % (38.2-49.6); HEMOGLOBIN 12.4 g/dL (14.0-18.0); LYMPHOCYTES # (AUTO) 1.4 (1.0-3.2); LYMPHOCYTES % 20.1 % (18.0-39.1); MEAN CORPUSCULAR HGB CONC 31.2 g/dL (31-35); MEAN CORPUSCULAR VOLUME 96.4 fL (81-99); MONOCYTES # (AUTO) 0.7 (0.2-0.8); MONOCYTES % 9.8 % (4.4-11.3); NEUTROPHILS # (AUTO) 4.5 (2.1-6.9); NEUTROPHILS % 66.4 % (38.7-80.0); PLATELET COUNT 216 x10e3/uL (140-360); RED BLOOD COUNT 4.13 x10e6/uL (4.3-5.7); RED CELL DISTRIBUTION WIDTH 14.8 % (11.7-14.4); WHITE BLOOD COUNT 6.75 x10e3/uL (4.8-10.8)
[2024-07-20 07:48] LABS: ANION GAP 16.1 mmol/L (8-16); CALCIUM 9.3 mg/dL (8.4-10.2); CREATININE, SERUM 1.02 mg/dL (0.72-1.25); POTASSIUM 4.1 mmol/L (3.5-5.1)
[2024-07-20] MEDS ORDERED: ZYVOX600 MG PO (10:55)
[2024-07-20] MEDS ORDERED: FUROSEMIDE40 MG PO (10:55)
== END 2024-07-20 12:15 | disposition home or self-care (01) | DRG 603 ==
LOC: ER 14:57 → ERHOLD 17:45 → MED/SURG3 20:21
PROVIDERS: ADMIT Internal Medicine; ATTEND Internal Medicine
DX: L03.115 Cellulitis of right lower limb (principal); C22.8 Malignant neoplasm of liver, primary, unspecified as to type; I47.29 Other ventricular tachycardia; L97.819 Non-pressure chronic ulcer of other part of right lower leg with unspecified severity; I87.2 Venous insufficiency (chronic) (peripheral); L03.116 Cellulitis of left lower limb; I89.0 Lymphedema, not elsewhere classified; I48.0 Paroxysmal atrial fibrillation; E66.01 Morbid (severe) obesity due to excess calories; Z68.36 Body mass index [BMI] 36.0-36.9, adult; Z71.3 Dietary counseling and surveillance; I49.3 Ventricular premature depolarization; I11.0 Hypertensive heart disease with heart failure; I50.9 Heart failure, unspecified; I25.2 Old myocardial infarction; I25.10 Atherosclerotic heart disease of native coronary artery without angina pectoris; Z95.5 Presence of coronary angioplasty implant and graft; J44.9 Chronic obstructive pulmonary disease, unspecified; F17.200 Nicotine dependence, unspecified, uncomplicated; E78.5 Hyperlipidemia, unspecified; N40.0 Benign prostatic hyperplasia without lower urinary tract symptoms; E11.42 Type 2 diabetes mellitus with diabetic polyneuropathy; Z79.84 Long term (current) use of oral hypoglycemic drugs; F41.0 Panic disorder [episodic paroxysmal anxiety]; N20.0 Calculus of kidney; M19.91 Primary osteoarthritis, unspecified site; M10.9 Gout, unspecified; G47.33 Obstructive sleep apnea (adult) (pediatric); Z96.653 Presence of artificial knee joint, bilateral; Z79.899 Other long term (current) drug therapy; Z79.82 Long term (current) use of aspirin
CPT/HCPCS: 36415; 71045; 80048; 80053; 80202; 82550; 82948; 83036; 83735; 83880; 84439; 84443; 84484; 85025; 85610; 85730; 87040; 93005; 93306; 93971; 94640; 94799; 99252; 99284; J1650; J1940; J2020; J2543; J7050